=== PATIENT | female | born 1990 | race Caucasian/White ===

== ENCOUNTER 2016-12-13 05:06 | Emergency (ER) | payer SELFPAY ==
[2016-12-13] MEDS ORDERED: NORMAL SALINE 1000 ML 1,000 ML IV ONE (06:03)
[2016-12-13 06:10] LABS: ABSOLUTE BASOPHILS # (AUTO) 0.1 10^3/uL (0.0-0.2); ABSOLUTE EOSINOPHILS # (AUTO) 0.1 10^3/uL (0.0-0.6); ABSOLUTE LYMPHOCYTES (AUTO) 2.9 10^3/uL (0.5-4.7); ABSOLUTE MONOCYTES (AUTO) 0.8 10^3/uL (0.1-1.4); ABSOLUTE NEUT (AUTO) 6.5 10^3/uL (1.7-8.2); BASOPHILS % (AUTO) 0.5 % (0-2); EOSINOPHILS % (AUTO) 0.8 % (0-6); HEMATOCRIT 44.5 % (36.0-47.0); HEMOGLOBIN 15.2 g/dL (12.0-15.5); HGB HCT DIFFERENCE 1.1; LYMPHOCYTES % (AUTO) 28.2 % (13-45); MEAN CORPUSCULAR HEMOGLOBIN 31.1 pg (27.0-33.4); MEAN CORPUSCULAR HGB CONC 34.1 g/dL (32.0-36.0); MEAN CORPUSCULAR VOLUME 91 fl (80-97); MONOCYTES % (AUTO) 7.5 % (3-13); RED BLOOD COUNT 4.88 10^6/uL (3.72-5.28); WHITE BLOOD COUNT 10.4 10^3/uL (4.0-10.5)
[2016-12-13] MEDS ORDERED: LORAZEPAM 1 MG TABLET PO ONE (06:22)
[2016-12-13 06:24] LABS: ALANINE AMINOTRANSFERASE 34 U/L (9-52); ALBUMIN 4.7 g/dL (3.5-5.0); ALCOHOL < 10 mg/dL (NONE DETECTED); ALKALINE PHOSPHATASE 87 U/L (38-126); ANION GAP 13 (5-19); ASPARTATE AMINO TRANSFERASE 43 U/L (14-36); BILIRUBIN,DIRECT 0.3 mg/dL (0.0-0.4); BILIRUBIN,TOTAL 1.2 mg/dL (0.2-1.3); BLOOD UREA NITROGEN 16 mg/dL (7-20); CALCIUM 9.8 mg/dL (8.4-10.2); CARBON DIOXIDE 22 mmol/L (22-30); CHLORIDE 103 mmol/L (98-107); GLUCOSE 99 mg/dL (75-110); POTASSIUM 4.1 mmol/L (3.6-5.0); SODIUM 138.3 mmol/L (137-145)
[2016-12-13 07:05] LABS: AMORPHOUS SEDIMENT,URINE TRACE /HPF; APPEARANCE,URINE SLIGHTLY-CLOUDY; BILIRUBIN,URINE NEGATIVE (NEGATIVE); GLUCOSE, URINE NEGATIVE (NEGATIVE); KETONES,URINE 20 mg/dL (NEGATIVE); LEUKOCYTE ESTERASE,URINE TRACE (NEGATIVE); NITRITE,URINE NEGATIVE (NEGATIVE); PROTEIN,URINE 30 mg/dL (NEGATIVE); URINE SPECIFIC GRAVITY 1.031
--- NOTE | 2016-12-13 07:44 | ER Document Report ---
ED General - General Chief Complaint: Alcohol Withdrawl Stated Complaint: POSSIBLE ALCOHOL WITHDRAWAL Time Seen by Provider: 12/13/16 06:01 TRAVEL OUTSIDE OF THE [place] IN LAST 30 DAYS: No - HPI Patient complains to provider of: Alcohol withdrawals Notes: Patient coming in for evaluation of possible alcohol withdrawals. Patient states she drinks very heavily 1 pint of vodka a day last drink was 6 hours ago patient patient may be going through withdrawals. Patient states she has a history of going through withdrawals. Denies other illicit drugs. Patient states she does take benzos occasionally whenever they are available. Patient states that she did try to call local mental health provider rha states that she was supposed to go back this morning at 6:00 however could not make it due to her symptoms. Denies being . Patient denies any fevers chills nausea vomiting diarrhea - Related Data Allergies/Adverse Reactions: cefaclor [From Ceclor] Allergy (Verified 12/13/16 06:51) naloxone Allergy (Verified 12/13/16 06:51) peanut Allergy (Verified 12/13/16 06:51) red dye [Red Dye] Allergy (Verified 12/13/16 06:51) Past Medical History - Social History Smoking Status: Current Every Day Smoker Frequency of alcohol use: Heavy Drug Abuse: Other Family History: Reviewed & Not Pertinent Patient has suicidal ideation: No Patient has homicidal ideation: No Renal/ Medical History: Denies: Hx Peritoneal Dialysis Psychiatric Medical History: Reports: Hx Attention Deficit Hyperactivity Disorder Past Surgical History: Reports: Hx Adenoidectomy, Hx Appendectomy, Hx Tonsillectomy - & adenoids - Immunizations Immunizations up to date: Yes Hx Diphtheria, Pertussis, Tetanus Vaccination: Yes - given today Review of Systems - Review of Systems Constitutional: Other - Alcohol withdrawals EENT: No symptoms reported Cardiovascular: No symptoms reported Respiratory: No symptoms reported Gastrointestinal: No symptoms reported Genitourinary: No symptoms reported Female Genitourinary: No symptoms reported Musculoskeletal: No symptoms reported Skin: No symptoms reported Hematologic/Lymphatic: No symptoms reported Neurological/Psychological: No symptoms reported Physical Exam - Vital signs Vitals: Temp Pulse Resp BP Pulse Ox 98.6 F 106 H 26 H 123/83 99 12/13/16 05:11 12/13/16 05:11 12/13/16 05:11 12/13/16 05:11 12/13/16 05:11 Interpretation: Normal - General General appearance: Appears well, Alert - HEENT Head: Normocephalic, Atraumatic Eyes: Normal Pupils: PERRL - Respiratory Respiratory status: No respiratory distress Chest status: Nontender Breath sounds: Normal Chest palpation: Normal - Cardiovascular Rhythm: Regular Heart sounds: Normal auscultation Murmur: No - Abdominal Inspection: Normal Distension: No distension Bowel sounds: Normal Tenderness: Nontender Organomegaly: No organomegaly - Back Back: Normal, Nontender - Extremities General upper extremity: Normal inspection, Nontender, Normal color, Normal ROM , Normal temperature General lower extremity: Normal inspection, Nontender, Normal color, Normal ROM , Normal temperature, Normal weight bearing. No: Samuel's sign - Neurological Neuro grossly intact: Yes Cognition: Normal Orientation: AAOx4 [place] Coma Scale Eye Opening: Spontaneous [place] Coma Scale Verbal: Oriented [place] Coma Scale Motor: Obeys Commands [place] Coma Scale Total: 15 Speech: Normal Motor strength normal: LUE, RUE, LLE, RLE Sensory: Normal - Psychological Associated symptoms: Normal affect, Normal mood - Skin Skin Temperature: Warm Skin Moisture: Dry Skin Color: Normal Course - Re-evaluation Re-evalutation: 12/13/16 07:41 Patient was to be resting, comfortable upon initial evaluation. No signs of overt alcohol withdrawals. Patient was given 1 dose of oral Ativan. Vital signs have been stable since that time. Plan more likely will discharge patient to [facility] and will give a prescription for day supply of Librium - Vital Signs Vital signs: Temp Pulse Resp BP Pulse Ox 98.6 F 106 H 21 H 96/61 L 98 12/13/16 05:11 12/13/16 05:11 12/13/16 08:01 12/13/16 08:00 12/13/16 08:01 - Laboratory Result Diagrams: 12/13/16 05:57 12/13/16 05:57 Laboratory results interpreted by me: 12/13/16 12/13/16 05:57 06:37 AST 43 H Urine Protein 30 H Urine Ketones 20 H Urine Urobilinogen 2.0 H Ur Leukocyte Esterase TRACE H Salicylates < 1.0 L Discharge - Discharge Clinical Impression: Alcohol withdrawal Qualifiers: Complication of substance-induced condition: uncomplicated Qualified Code(s): F10.230 - Alcohol dependence with withdrawal, uncomplicated Instructions: Acute Alcohol Intoxication ([facility]), Alcohol Withdrawl ([facility]) Additional Instructions: Medication as prescribed. Return to the ER symptoms worsen. Please go directly to [facility] for further evaluation Prescriptions: Chlordiazepoxide HCl [Librium 25 mg Capsule] 1 cap PO QID #4 capsule
[2016-12-13 07:58] LABS: URINE BARBITURATES SCREEN NEGATIVE; URINE METHADONE SCREEN NEGATIVE; URINE OPIATES LOW NEGATIVE; URINE PHENCYCLIDINE SCREEN NEGATIVE
--- NOTE | 2016-12-13 08:18 | EKG REPORT ---
SEVERITY:- NORMAL ECG - SINUS RHYTHM : Confirmed by: Jw Wilson MD 13-Dec-2016 08:17:47
[2016-12-13 08:35] VITALS: BP 121/90
== END 2016-12-13 08:35 | disposition home or self-care (01) ==
LOC: ER 05:06
DX: F10.230 Alcohol dependence with withdrawal, uncomplicated (principal); Z79.899 Other long term (current) drug therapy; F17.200 Nicotine dependence, unspecified, uncomplicated
CPT/HCPCS: 93005; 99285; 96360; 36415; 80307 ×4; 85025; 81025; 80053; 81001; 93010; J7030

== ENCOUNTER 2017-03-19 14:50 | Emergency (ER) | payer SELFPAY ==
[2017-03-19] MEDS ORDERED: NORMAL SALINE 1000 ML 1,000 ML IV ONE ×2 (15:01→17:22)
[2017-03-19] MEDS ORDERED: ONDANSETRON HCL INJ/PF 4 MG/2 ML SDV IV ONE (15:01)
[2017-03-19] MEDS ORDERED: MORPHINE SULFATE 10 MG/ML INJ IV ONE (15:01)
--- NOTE | 2017-03-19 15:02 | ER Document Report ---
ED Medical Screen (RME) - General Chief Complaint: Flank Pain Stated Complaint: FLANK PAIN Time Seen by Provider: 03/19/17 15:00 Notes: Patient states she has had 4 days of bilateral flank pain with dysuria and hematuria. She states her natural cycles are commonly irregular so she is unsure if she is . She also states she has been vomiting. TRAVEL OUTSIDE OF THE [place] IN LAST 30 DAYS: No - Related Data Allergies/Adverse Reactions: cefaclor [From Ceclor] Allergy (Verified 03/19/17 14:54) naloxone Allergy (Verified 03/19/17 14:54) peanut Allergy (Verified 03/19/17 14:54) red dye [Red Dye] Allergy (Verified 03/19/17 14:54) Past Medical History - Social History Frequency of alcohol use: None Drug Abuse: None Renal/ Medical History: Denies: Hx Peritoneal Dialysis Psychiatric Medical History: Reports: Hx Attention Deficit Hyperactivity Disorder Past Surgical History: Reports: Hx Adenoidectomy, Hx Appendectomy, Hx Oral Surgery - [place], Hx Tonsillectomy - & adenoids - Immunizations Immunizations up to date: Yes Hx Diphtheria, Pertussis, Tetanus Vaccination: Yes - given today Physical Exam - Vital signs Vitals: Temp Pulse BP Pulse Ox 98.7 F 120 H 104/74 99 03/19/17 14:55 03/19/17 14:55 03/19/17 14:55 03/19/17 14:55 Course - Vital Signs Vital signs: Temp Pulse Resp BP Pulse Ox 98.7 F 120 H 104/74 99 03/19/17 14:55 03/19/17 14:55 03/19/17 14:55 03/19/17 14:55
--- NOTE | 2017-03-19 16:28 | ER Document Report ---
ED GI/ - General Mode of Arrival: Ambulatory Information source: Patient TRAVEL OUTSIDE OF THE [place] IN LAST 30 DAYS: No - HPI Patient complains to provider of: Dysuria, Flank pain, Pelvic pain, Vomiting. No: , Vaginal discharge Onset: Other - 4 days Timing/Duration: Persistent Quality of pain: Sharp Pain Level: 5 Context: denies: Location: Left flank, Right flank, Pelvis Vaginal bleeding (Compared to normal period): None Sexual history: Active Associated symptoms: Dysuria, Fever, Nausea, Vomiting. denies: Diarrhea Exacerbated by: Denies Relieved by: Denies Similar symptoms previously: Yes Recently seen / treated by doctor: No <ADAM HERNANDEZ - Last Filed: 03/19/17 19:08> <QUIRINO CARTAGENA - Last Filed: 03/19/17 20:23> <FLORENCIO CASTORENA - Last Filed: 03/19/17 22:57> - General Chief Complaint: Flank Pain Stated Complaint: FLANK PAIN Time Seen by Provider: 03/19/17 15:00 Notes: Patient presents with a four-day history of bilateral flank pain and lower pelvic pain. Patient complains of nausea and vomiting with last emesis yesterday. Patient denies any diarrhea. Patient does report subjective fever and chills at home. Patient complains of dysuria. Patient is concerned that she may have a UTI. 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 Denies: Hx Peritoneal Dialysis Psychiatric Medical History: Reports: Hx Attention Deficit Hyperactivity Disorder Past Surgical History: Reports: Hx Adenoidectomy, Hx Appendectomy, Hx Oral Surgery - [place], Hx Tonsillectomy - & adenoids - Immunizations Immunizations up to date: Yes Hx Diphtheria, Pertussis, Tetanus Vaccination: Yes - given today <ADAM HERNANDEZ - Last Filed: 03/19/17 19:08> Review of Systems - Review of Systems Constitutional: Chills, Fever EENT: No symptoms reported Cardiovascular: No symptoms reported. denies: Chest pain Respiratory: No symptoms reported. denies: Cough, Short of breath Gastrointestinal: Abdominal pain, Nausea, Vomiting. denies: Diarrhea Genitourinary: Dysuria, Flank pain Female Genitourinary: No symptoms reported. denies: , Vaginal discharge Musculoskeletal: Back pain Skin: No symptoms reported Hematologic/Lymphatic: No symptoms reported Neurological/Psychological: No symptoms reported <ADAM HERNANDEZ - Last Filed: 03/19/17 19:08> Physical Exam - General General appearance: Appears well, Alert In distress: None - HEENT Head: Normocephalic Eyes: Normal Conjunctiva: Normal Mouth/Lips: Normal Mucous membranes: Normal Pharynx: Normal Neck: Normal, Supple. No: Lymphadenopathy - Respiratory Respiratory status: No respiratory distress Chest status: Nontender Breath sounds: Normal. No: Rales, Rhonchi, Stridor, Wheezing Chest palpation: Normal - Cardiovascular Rhythm: Tachycardia Heart sounds: S1 appreciated, S2 appreciated Murmur: No - Abdominal Inspection: Normal Distension: No distension Bowel sounds: Normal Tenderness: Tender - Suprapubic Organomegaly: No organomegaly - Back Back: CVA tenderness - Bilateral - Extremities General upper extremity: Normal ROM, Other - Patient with multiple IV track gonzalez to bilateral upper extremities General lower extremity: Normal inspection, Normal ROM - Neurological Neuro grossly intact: Yes Cognition: Normal [place] Coma Scale Eye Opening: Spontaneous [place] Coma Scale Verbal: Oriented [place] Coma Scale Motor: Obeys Commands [place] Coma Scale Total: 15 - Psychological Associated symptoms: Normal affect, Normal mood - Skin Skin Temperature: Warm Skin Moisture: Dry Skin Color: Other - Track gonzalez to bilateral upper extremities with surrounding ecchymosis <ADAM HERNANDEZ - Last Filed: 03/19/17 19:08> - Vital signs Vitals: Temp Pulse BP Pulse Ox 98.7 F 120 H 104/74 99 03/19/17 14:55 03/19/17 14:55 03/19/17 14:55 03/19/17 14:55 Course - Laboratory Result Diagrams: 03/19/17 16:05 03/19/17 17:45 <ADAM HERNANDEZ - Last Filed: 03/19/17 19:08> - Laboratory Result Diagrams: 03/19/17 16:05 03/19/17 17:45 <QUIRINO CARTAGENA - Last Filed: 03/19/17 20:23> - Laboratory Result Diagrams: 03/19/17 16:05 03/19/17 17:45 <FLORENCIO CASTORENA - Last Filed: 03/19/17 22:57> - Re-evaluation Re-evalutation: 03/19/17 17:24 Patient is refusing any additional IV attempts. Discussed concerns about sepsis with patient, patient is agreeable to have a repeat blood draw attempt per WOODY Bhardwaj only. 03/19/17 18:38 Patient's heart rate continues tachycardic with blood pressure 100/68. Patient' s temperature 100.9. Patient complains of continued pelvic pain and bilateral flank pain. 03/19/17 18:[address] Castorena, reviewed patient's presentation, exam finding diagnostic test results. Recommends obtaining CT scan with IV contrast and likely admission 03/19/17 19:08 Attempted bedside report and handoff, patient is currently in CT scan. Report given to Quirino HO (ADAM HERNANDEZ) 03/19/17 20:37 I examined the patient at 8:30 PM. She is alert and communicative. She sits up in bed and appears to be in no acute distress. She has evidence of bilateral pyelonephritis on CT with a urinary tract infection and an elevation in her white blood cell count. We have advised the patient that she should be admitted to the hospital and have spoke with the hospitalist service about this. The patient is reluctant to stay. She reports she has a number of things that she needs to take care of and that she has had a kidney infection before and she does not understand why this would be so significant. We have outlined how her blood pressure is low, her heart rate is up, and she has an infection on both sides. We have outlined the risks and benefits of leaving the hospital, including worsening sickness, sepsis, and even . We have offered support to the patient to stay but also let her know that if she departs , will we will provide her with a prescription and welcome her back if she feels worse or has a change of heart. She will speak with her mother who is a nurse to make her decision. Meanwhile, will continue with additional IV fluids and Levaquin. 03/19/17 22:54 The patient has received additional IV fluids. The Levaquin is fully infused. At this time, her heart rate is 90. She is ambulatory and feels better. Her blood pressure has improved. She is insisting on discharge. I have encouraged the patient to stay for admission. I think admission would been reasonable given bilateral pyelonephritis, white blood cell count of 15,000 , and my concerns for IV drug abuse, but it is not unreasonable to be discharged home on antibiotics. We will discharge her with strong precautions to return. The patient understands the options she has. She is alert and cognitive and is cooperative. She is appreciative of the care she is received. (FLORENCIO CASTORENA) - Vital Signs Vital signs: Temp Pulse Resp BP Pulse Ox 98.1 F 94 30 H 98/63 L 100 03/19/17 20:06 03/19/17 16:49 03/19/17 21:23 03/19/17 21:23 03/19/17 21:01 - Laboratory Laboratory results interpreted by me: 03/19/17 03/19/17 03/19/17 15:20 16:05 17:45 WBC 15.2 H Seg Neutrophils % 82.2 H Lymphocytes % 8.3 L Absolute Neutrophils 12.5 H Sodium 131.8 L Chloride 95 L Total Protein 6.2 L Urine Protein 100 H Urine Ketones 20 H Urine Blood MODERATE H Ur Leukocyte Esterase LARGE H Labs- Entire Visit 03/19/17 03/19/17 03/19/17 15:20 15:20 16:05 WBC 15.2 H RBC 4.22 Hgb 13.2 Hct 37.1 MCV 88 MCH 31.2 MCHC 35.5 RDW 12.6 Plt Count 193 Seg Neutrophils % 82.2 H Lymphocytes % 8.3 L Monocytes % 9.0 Eosinophils % 0.1 Basophils % 0.4 Absolute Neutrophils 12.5 H Absolute Lymphocytes 1.3 Absolute Monocytes 1.4 Absolute Eosinophils 0.0 Absolute Basophils 0.1 PT INR VBG pH VBG pCO2 VBG HCO3 VBG Base Excess Sodium Potassium Chloride Carbon Dioxide Anion Gap BUN Creatinine Est GFR ( Amer) Est GFR (Non-Af Amer) Glucose Lactic Acid Calcium Total Bilirubin Direct Bilirubin Indirect Bilirubin Neonat Total Bilirubin AST ALT Alkaline Phosphatase Total Protein Albumin Lipase Urine Color YELLOW Urine Appearance CLOUDY Urine pH 5.0 Ur Specific [place] 1.013 Urine Protein 100 H Urine Glucose (UA) NEGATIVE Urine Ketones 20 H Urine Blood MODERATE H Urine Nitrite NEGATIVE Urine Bilirubin NEGATIVE Urine Urobilinogen NEGATIVE Ur Leukocyte Esterase LARGE H Urine WBC (Auto) 161 Urine RBC (Auto) 10 Urine Bacteria (Auto) 2+ Urine WBC Clumps MOD Squamous Epi Cells Auto 26 U Non-Squamous Epis Auto 3 Urine Mucus (Auto) OCC Urine Ascorbic Acid NEGATIVE Urine HCG, Qual NEGATIVE Urine Opiates Screen NEGATIVE Urine Methadone Screen NEGATIVE Ur Barbiturates Screen NEGATIVE Ur Phencyclidine Scrn NEGATIVE Ur Amphetamines Screen U Benzodiazepines Scrn UNCONFIRMED POSITIVE Urine Cocaine Screen NEGATIVE U Marijuana (THC) Screen UNCONFIRMED POSITIVE 03/19/17 03/19/17 03/19/17 16:05 16:05 17:45 WBC RBC Hgb Hct MCV MCH MCHC RDW Plt Count Seg Neutrophils % Lymphocytes % Monocytes % Eosinophils % Basophils % Absolute Neutrophils Absolute Lymphocytes Absolute Monocytes Absolute Eosinophils Absolute Basophils PT 15.1 INR 1.11 VBG pH VBG pCO2 VBG HCO3 VBG Base Excess Sodium Cancelled 131.8 L Potassium Cancelled 3.7 Chloride Cancelled 95 L Carbon Dioxide Cancelled 23 Anion Gap Cancelled 14 BUN Cancelled 8 Creatinine Cancelled 0.74 Est GFR ( Amer) Cancelled > 60 Est GFR (Non-Af Amer) Cancelled > 60 Glucose Cancelled 90 Lactic Acid Calcium Cancelled 8.4 Total Bilirubin Cancelled 0.7 Direct Bilirubin Cancelled 0.4 Indirect Bilirubin Cancelled Not Reportable Neonat Total Bilirubin Cancelled Not Reportable AST Cancelled 21 ALT Cancelled 24 Alkaline Phosphatase Cancelled 80 Total Protein Cancelled 6.2 L Albumin Cancelled 3.5 Lipase Cancelled 26.0 Urine Color Urine Appearance Urine pH Ur Specific [place] Urine Protein Urine Glucose (UA) Urine Ketones Urine Blood Urine Nitrite Urine Bilirubin Urine Urobilinogen Ur Leukocyte Esterase Urine WBC (Auto) Urine RBC (Auto) Urine Bacteria (Auto) Urine WBC Clumps Squamous Epi Cells Auto U Non-Squamous Epis Auto Urine Mucus (Auto) Urine Ascorbic Acid Urine HCG, Qual Urine Opiates Screen Urine Methadone Screen Ur Barbiturates Screen Ur Phencyclidine Scrn Ur Amphetamines Screen U Benzodiazepines Scrn Urine Cocaine Screen U Marijuana (THC) Screen 03/19/17 03/19/17 17:45 17:45 WBC RBC Hgb Hct MCV MCH MCHC RDW Plt Count Seg Neutrophils % Lymphocytes % Monocytes % Eosinophils % Basophils % Absolute Neutrophils Absolute Lymphocytes Absolute Monocytes Absolute Eosinophils Absolute Basophils PT INR VBG pH 7.36 VBG pCO2 46.6 VBG HCO3 26.0 VBG Base Excess 0.1 Sodium Potassium Chloride Carbon Dioxide Anion Gap BUN Creatinine Est GFR ( Amer) Est GFR (Non-Af Amer) Glucose Lactic Acid 0.8 Calcium Total Bilirubin Direct Bilirubin Indirect Bilirubin Neonat Total Bilirubin AST ALT Alkaline Phosphatase Total Protein Albumin Lipase Urine Color Urine Appearance Urine pH Ur Specific [place] Urine Protein Urine Glucose (UA) Urine Ketones Urine Blood Urine Nitrite Urine Bilirubin Urine Urobilinogen Ur Leukocyte Esterase Urine WBC (Auto) Urine RBC (Auto) Urine Bacteria (Auto) Urine WBC Clumps Squamous Epi Cells Auto U Non-Squamous Epis Auto Urine Mucus (Auto) Urine Ascorbic Acid Urine HCG, Qual Urine Opiates Screen Urine Methadone Screen Ur Barbiturates Screen Ur Phencyclidine Scrn Ur Amphetamines Screen U Benzodiazepines Scrn Urine Cocaine Screen U Marijuana (THC) Screen (ADAM HERNANDEZ) Discharge <ADAM HERNANDEZ - Last Filed: 03/19/17 19:08> <QUIRINO CARTAGENA - Last Filed: 03/19/17 20:23> <FLORENCIO CASTORENA - Last Filed: 03/19/17 22:57> - Discharge Clinical Impression: Pyelonephritis UTI (urinary tract infection) Qualifiers: Urinary tract infection type: site unspecified Hematuria presence: without hematuria Qualified Code(s): N39.0 - Urinary tract infection, site not specified Hypotension Qualifiers: Hypotension type: unspecified hypotension type Qualified Code(s): I95.9 - Hypotension, unspecified Disposition: HOME, SELF-CARE Instructions: Levofloxacin, Pyelonephritis ([facility]) Additional Instructions: We suggested you should stay in the hospital for further care and monitoring. You prefer to be discharged from the hospital. Your blood pressure and your heart rate improved while you were in the emergency department. You were given Levaquin. Continue Levaquin by mouth. Follow-up with your regular doctor for with Dr. Suarez. Return to the emergency department at any time if you have further weakness, abdominal pain, higher temperatures, or other urgent concerns. Prescriptions: Levofloxacin [Levaquin 750 mg Tablet] 750 mg PO DAILY #10 tablet
[2017-03-19 16:30] LABS: ABSOLUTE BASOPHILS # (AUTO) 0.1 10^3/uL (0.0-0.2); ABSOLUTE LYMPHOCYTES (AUTO) 1.3 10^3/uL (0.5-4.7); ABSOLUTE MONOCYTES (AUTO) 1.4 10^3/uL (0.1-1.4); ABSOLUTE NEUT (AUTO) 12.5 10^3/uL (1.7-8.2); BASOPHILS % (AUTO) 0.4 % (0-2); EOSINOPHILS % (AUTO) 0.1 % (0-6); HEMATOCRIT 37.1 % (36.0-47.0); HEMOGLOBIN 13.2 g/dL (12.0-15.5); HGB HCT DIFFERENCE 2.5; LYMPHOCYTES % (AUTO) 8.3 % (13-45); MEAN CORPUSCULAR HEMOGLOBIN 31.2 pg (27.0-33.4); MEAN CORPUSCULAR HGB CONC 35.5 g/dL (32.0-36.0); MEAN CORPUSCULAR VOLUME 88 fl (80-97); RED BLOOD COUNT 4.22 10^6/uL (3.72-5.28); RED CELL DISTRIBUTION WIDTH 12.6 % (11.5-14.0); SEGMENTED NEUTROPHILS % (AUTO) 82.2 % (42-78); WHITE BLOOD COUNT 15.2 10^3/uL (4.0-10.5)
[2017-03-19 16:37] LABS: APPEARANCE,URINE CLOUDY; BILIRUBIN,URINE NEGATIVE (NEGATIVE); GLUCOSE, URINE NEGATIVE (NEGATIVE); KETONES,URINE 20 mg/dL (NEGATIVE); LEUKOCYTE ESTERASE,URINE LARGE (NEGATIVE); NITRITE,URINE NEGATIVE (NEGATIVE); PROTEIN,URINE 100 mg/dL (NEGATIVE); URINE SPECIFIC GRAVITY 1.013; UROBILINOGEN,URINE NEGATIVE mg/dL (<2.0)
[2017-03-19 16:51] LABS: URINE BARBITURATES SCREEN NEGATIVE; URINE METHADONE SCREEN NEGATIVE; URINE OPIATES LOW NEGATIVE; URINE PHENCYCLIDINE SCREEN NEGATIVE
[2017-03-19] MEDS ORDERED: LEVOFLOXACIN 750 MG/D5W RTU 750 MG/150 ML RTUPB IV ONE (17:22)
[2017-03-19 17:37] LABS: PROTHROMBIN TIME 15.1 SEC (11.4-15.4)
[2017-03-19 18:09] LABS: VENOUS BLOOD BASE EXCESS 0.1 mmol/L; VENOUS BLOOD PCO2 46.6 mmHg (35-63); VENOUS BLOOD PH 7.36 (7.30-7.42)
--- NOTE | 2017-03-19 18:20 | EKG REPORT ---
SEVERITY:- OTHERWISE NORMAL ECG - SINUS TACHYCARDIA BORDERLINE RIGHT AXIS DEVIATION : Confirmed by: Jessy Vieira MD 19-Mar-2017 18:19:24
[2017-03-19 18:24] LABS: ALANINE AMINOTRANSFERASE 24 U/L (9-52); ALBUMIN 3.5 g/dL (3.5-5.0); ALKALINE PHOSPHATASE 80 U/L (38-126); ANION GAP 14 (5-19); ASPARTATE AMINO TRANSFERASE 21 U/L (14-36); BILIRUBIN,DIRECT 0.4 mg/dL (0.0-0.4); BILIRUBIN,TOTAL 0.7 mg/dL (0.2-1.3); BLOOD UREA NITROGEN 8 mg/dL (7-20); CALCIUM 8.4 mg/dL (8.4-10.2); CARBON DIOXIDE 23 mmol/L (22-30); CHLORIDE 95 mmol/L (98-107); CREATININE RESULT 0.74 mg/dL (0.52-1.25); GLUCOSE 90 mg/dL (75-110); POTASSIUM 3.7 mmol/L (3.6-5.0); SODIUM 131.8 mmol/L (137-145); TOTAL PROTEIN 6.2 g/dL (6.3-8.2)
[2017-03-19] MEDS ORDERED: KETOROLAC TROMETHAMINE INJ/PF 30 MG/1 ML SDV IV ONE (18:38)
[2017-03-19] MEDS ORDERED: ACETAMINOPHEN 325 MG TABLET PO ONE (18:38)
[2017-03-19] MEDS ORDERED: NORMAL SALINE 1000 ML 1,000 ML IV PRN (18:44)
--- NOTE | 2017-03-19 19:59 | RADIOLOGY REPORT (SQ) ---
EXAM DESCRIPTION: CT ABD/PELVIS WITH IV ONLY COMPLETED DATE/TIME: 03/19/2017 7:19 pm REASON FOR STUDY: pelvic, bilat flank pain, fever, hx IVDA COMPARISON: None. TECHNIQUE: CT scan of the abdomen and pelvis performed using helical scanning technique with dynamic intravenous contrast injection. No oral contrast. Images reviewed with lung, soft tissue, and bone windows. Reconstructed coronal and sagittal MPR images reviewed. Delayed images for evaluation of the urinary system also acquired. All images stored on PACS. All CT scanners at this facility use dose modulation, iterative reconstruction, and/or weight based d osing when appropriate to reduce radiation dose to as low as reasonably achievable (ALARA). [facility]: Dose Right [facility]: CareDose [facility]: Dose Right [facility]: Teradose 4D [facility]: Khush CONTRAST TYPE AND DOSE: contrast/concentration: Isovue 370.00 mg/ml; Total Contrast Delivered: 59.0 ml; Total Saline Delivered: 40.0 ml RENAL FUNCTION: Creatinine 0.74 RADIATION DOSE: Up-to-date CT equipment and radiation dose reduction techniques were employed. CTDIv ol: 5.0 - 5.8 mGy. DLP: 565 mGy-cm.. LIMITATIONS: None. FINDINGS: LOWER CHEST: No significant findings. No nodules or infiltrates. LIVER: Normal size. No masses. No dilated ducts. SPLEEN: Normal size. No focal lesions. PANCREAS: No masses. No significant calcifications. No adjacent inflammation or peripancreatic fluid collections. Pancreatic duct not dilated. GALLBLADDER: No identified stones by CT criteria. No inflammatory changes to suggest cholecystitis. ADRENAL GLANDS: No significant masses or asymmetry. RIGHT KIDNEY AND URETER: No solid masses. There is heterogeneous contrast opacification of the right kidney which is a nonspecific finding but can be seen in patients with pyelonephritis. Clinical cor relation is recommended No significant calcifications. No hydronephrosis or hydroureter. LEFT KIDNEY AND URETER: No solid masses. There is heterogeneous contrast opacification of the left k idney which is a nonspecific finding but can be seen in patients with pyelonephritis. Clinical corre lation is recommended. No significant calcifications. No hydronephrosis or hydroureter. AORTA AND VESSELS: No aneurysm. No dissection. Renal arteries, SMA, celiac without stenosis. RETROPERITONEUM: No retroperitoneal adenopathy, hemorrhage or masses. BOWEL AND PERITONEAL CAVITY: No masses or inflammatory changes. No free fluid or peritoneal masses. APPENDIX: Status post appendectomy. PELVIS: Cystic appearing changes are identified in both adnexal regions presumably ovarian in etiolog y. If further workup is deemed clinically warranted I would recommend a pelvic ultrasound. No free fluid. Normal bladder. ABDOMINAL WALL: No masses. No hernias. BONES: No significant or acute findings. OTHER: No other significant finding. IMPRESSION: There is heterogeneous contrast opacification of both kidneys as noted above which is a nonspecific finding but can be seen in patients with pyelonephritis. Clinical correlation is recomme nded. Other findings as noted above TECHNICAL DOCUMENTATION: JOB ID: [id number] Quality ID # [id number]: Final reports with documentation of one or more dose reduction techniques (e.g., Au tomated exposure control, adjustment of the mA and/or kV according to patient size, use of iterative reconstruction technique) 2010 [employer]- All Rights Reserved
[2017-03-19 23:19] VITALS: BP 92/65
== END 2017-03-19 23:16 | disposition home or self-care (01) ==
LOC: ER 14:50
DX: N12 Tubulo-interstitial nephritis, not specified as acute or chronic (principal); I95.9 Hypotension, unspecified; R00.0 Tachycardia, unspecified; R11.2 Nausea with vomiting, unspecified; R50.9 Fever, unspecified; Z88.1 Allergy status to other antibiotic agents; Z88.8 Allergy status to other drugs, medicaments and biological substances; Z91.010 Allergy to peanuts; Z91.048 Other nonmedicinal substance allergy status; F17.200 Nicotine dependence, unspecified, uncomplicated
CPT/HCPCS: 93005; 99284; 96361; 96375; 96365; 96366; 36415; 87040; 87086; 83690; 85025; 85610; 81025; 87088; 80053; 81001; 87186; 80307; 82803; 83605; 74177; 93010; J1885; J2270; J2405; J7030; J1956

== ENCOUNTER 2017-03-20 09:19 | Inpatient (IN) | payer SELFPAY ==
[2017-03-20] MEDS ORDERED: NORMAL SALINE 1000 ML 1,000 ML IV ONE ×2 (09:39→11:02)
[2017-03-20] MEDS ORDERED: ACETAMINOPHEN 325 MG TABLET PO ONE (09:39)
--- NOTE | 2017-03-20 09:41 | ER Document Report ---
ED Medical Screen (RME) - General Stated Complaint: FLANK PAIN Time Seen by Provider: 03/20/17 09:38 Notes: Patient was seen here yesterday and diagnosed with bilateral pyelonephritis. Patient returns today with fever and worse pain. TRAVEL OUTSIDE OF THE [place] IN LAST 30 DAYS: No - Related Data Allergies/Adverse Reactions: cefaclor [From Ceclor] Allergy (Verified 03/20/17 09:38) naloxone Allergy (Verified 03/20/17 09:38) peanut Allergy (Verified 03/20/17 09:38) red dye [Red Dye] Allergy (Verified 03/20/17 09:38) Past Medical History Renal/ Medical History: Denies: Hx Peritoneal Dialysis Psychiatric Medical History: Reports: Hx Attention Deficit Hyperactivity Disorder Past Surgical History: Reports: Hx Adenoidectomy, Hx Appendectomy, Hx Oral Surgery - [place] Teeth, Hx Tonsillectomy - & adenoids - Immunizations Immunizations up to date: Yes Hx Diphtheria, Pertussis, Tetanus Vaccination: Yes - given today
--- NOTE | 2017-03-20 10:16 | ER Document Report ---
ED GI/ - General Mode of Arrival: Ambulatory Information source: Patient, [facility] Records TRAVEL OUTSIDE OF THE [place] IN LAST 30 DAYS: No <TOM TALLEY - Last Filed: 03/20/17 10:35> <NALLELY OLIVEIRA - Last Filed: 03/20/17 12:23> - General Chief Complaint: Flank Pain Stated Complaint: FLANK PAIN Time Seen by Provider: 03/20/17 09:38 Notes: Patient is a 26 year old female that presents to the emergency department today with complaints of increasing flank pain. Patient was diagnosed with bilateral pyelonephritis yesterday. Yesterday the patient stated she had a 4 day history of bilateral flank pain with associated nausea and vomiting with suprapubic abdominal pain. Patient states she did not get her prescription for her antibiotics filled yesterday because she could not afford it. Patient states this morning when she woke up she has had increasing pain and fevers. Patient states "she has given to a child twice and this is worse than that". 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 (TOM TALLEY) - Related Data Allergies/Adverse Reactions: cefaclor [From Ceclor] Allergy (Verified 03/20/17 09:38) naloxone Allergy (Verified 03/20/17 09:38) peanut Allergy (Verified 03/20/17 09:38) red dye [Red Dye] Allergy (Verified 03/20/17 09:38) Past Medical History - General Information source: Patient, [facility] Records - Social History Smoking Status: Current Every Day Smoker Cigarette use (# per day): Yes Drug Abuse: Methamphetamine - hx of injecting, "stopped a week ago" Lives with: Family Family History: Reviewed & Not Pertinent Patient has suicidal ideation: No Patient has homicidal ideation: No Psychiatric Medical History: Reports: Hx Attention Deficit Hyperactivity Disorder Past Surgical History: Reports: Hx Adenoidectomy, Hx Appendectomy, Hx Oral Surgery - [place] Teeth, Hx Tonsillectomy - & adenoids - Immunizations Immunizations up to date: Yes Hx Diphtheria, Pertussis, Tetanus Vaccination: Yes - given today <TOM TALLEY - Last Filed: 03/20/17 10:35> Review of Systems - Review of Systems Constitutional: See HPI, Fever EENT: No symptoms reported Cardiovascular: No symptoms reported Respiratory: No symptoms reported Gastrointestinal: Nausea, Vomiting Genitourinary: See HPI, Flank pain Female Genitourinary: No symptoms reported Musculoskeletal: No symptoms reported Skin: No symptoms reported Hematologic/Lymphatic: No symptoms reported Neurological/Psychological: No symptoms reported -: Yes All other systems reviewed and negative <TOM TALLEY - Last Filed: 03/20/17 10:35> Physical Exam <TOM TALLEY - Last Filed: 03/20/17 10:35> <NALLELY OLIVEIRA - Last Filed: 03/20/17 12:23> - Vital signs Vitals: Temp Pulse Resp BP Pulse Ox 102.2 F H 136 H 16 113/64 94 03/20/17 09:39 03/20/17 09:39 03/20/17 09:39 03/20/17 09:39 03/20/17 09:39 - Notes Notes: Physical Exam: General: Alert, appears uncomfortable. Tearful. HEENT: Normocephalic. Atraumatic. PERRL. Extraocular movements intact. Oropharynx clear. Neck: Supple. Non-tender. Respiratory: No respiratory distress. Diffuse rhonchi consistent with smoking history. Cardiovascular: Regular rate and rhythm. Abdominal: Mild suprapubic abdominal tenderness. No distension. Normal Bowel Sounds. Back: CVA tenderness to percussion bilaterally. No deformity or step off. Extremities: Moves all four extremities. Upper extremities: See skin. Normal ROM. Lower extremities: Normal inspection. No edema. Normal ROM. Neurological: Normal cognition. AAOx4. Normal speech. Psychological: Tearful. Normal Mood. Skin: Hot to the touch, diaphoretic, multiple healed scars to bilateral upper extremities consistent with IV drug abuse history. (TOM TALLEY) Course - Laboratory Result Diagrams: 03/20/17 10:11 03/20/17 10:11 <TOM TALLEY - Last Filed: 03/20/17 10:35> - Laboratory Result Diagrams: 03/20/17 10:11 03/20/17 10:11 - Consults Dr. Maya Time consulted: 12:20 Consulted provider: will come to ER <NALLELY OLIVEIRA - Last Filed: 03/20/17 12:23> - Re-evaluation Re-evalutation: 03/20/17 11:44 The patient's ANC is down from 12.5 yesterday to 6.1 today. The patient's UA showed 161 WBCs yesterday, it is down to 43 WBCs today. A lactic acid was 0.8 yesterday and is 0.8 today. The patient did have a contrasted CT scan yesterday that suggested pyelonephritis, no abscess or perinephric stranding was seen. Her antibiotic will be changed to Cipro which is much less expensive than the Levaquin that was prescribed yesterday. Culture and sensitivity results should be available sometime tomorrow. 03/20/17 12:17 The patient reports that last night they wanted to put her in the intensive care unit, so she cannot understand why she would be getting discharged now. She is stating that her pain is much worse today than it was yesterday. (NALLELY OLIVEIRA) - Vital Signs Vital signs: Temp Pulse Resp BP Pulse Ox 102.2 F H 136 H 16 113/64 94 03/20/17 09:39 03/20/17 09:39 03/20/17 09:39 03/20/17 09:39 03/20/17 09:39 - Laboratory Laboratory results interpreted by me: 03/20/17 03/20/17 03/20/17 10:11 10:11 10:11 Hct 35.0 L Seg Neutrophils % 78.1 H Lymphocytes % 11.7 L VBG pH 7.46 H VBG pCO2 30.7 L Sodium 134.1 L Carbon Dioxide 21 L Direct Bilirubin 0.5 H Total Protein 6.0 L Albumin 3.4 L Urine Protein Urine Ketones Urine Blood Ur Leukocyte Esterase 03/20/17 11:21 Hct Seg Neutrophils % Lymphocytes % VBG pH VBG pCO2 Sodium Carbon Dioxide Direct Bilirubin Total Protein Albumin Urine Protein 30 H Urine Ketones 20 H Urine Blood SMALL H Ur Leukocyte Esterase SMALL H Discharge <TOM TALLEY - Last Filed: 03/20/17 10:35> - Discharge Admitting Provider: Hospitalist Unit Admitted: Medical Floor <NALLELY OLIVEIRA - Last Filed: 03/20/17 12:23> - Discharge Clinical Impression: Pyelonephritis Fever Qualifiers: Fever type: unspecified Qualified Code(s): R50.9 - Fever, unspecified Condition: Stable Disposition: ADMITTED INPATIENT Scribe Attestation: 10/18/17 11:46 I personally performed the services described in the documentation, reviewed and edited the documentation which was dictated to the scribe in my presence, and it accurately records my words and actions. (NALLELY OLIVEIRA) Scribe Documentation - Scribe Written by Scribe:: Tonio Childers, 03/20/2017 1035 acting as scribe for :: Savana <TOM TALLEY - Last Filed: 03/20/17 10:35>
[2017-03-20] MEDS ORDERED: KETOROLAC TROMETHAMINE INJ/PF 30 MG/1 ML SDV IV ONE (10:17)
[2017-03-20] MEDS ORDERED: CEFTRIAXONE 1 GM/D5W RTU 1 GM/50 ML RTUPB IV ONE (10:22)
[2017-03-20 10:29] LABS: VENOUS BLOOD BASE EXCESS -1.8 mmol/L; VENOUS BLOOD HCO3 21.1 mmol/L (20-32); VENOUS BLOOD PCO2 30.7 mmHg (35-63); VENOUS BLOOD PH 7.46 (7.30-7.42)
[2017-03-20 10:30] LABS: ABSOLUTE LYMPHOCYTES (AUTO) 0.9 10^3/uL (0.5-4.7); ABSOLUTE MONOCYTES (AUTO) 0.8 10^3/uL (0.1-1.4); ABSOLUTE NEUT (AUTO) 6.1 10^3/uL (1.7-8.2); BASOPHILS % (AUTO) 0.1 % (0-2); EOSINOPHILS % (AUTO) 0.5 % (0-6); HEMOGLOBIN 12.1 g/dL (12.0-15.5); HGB HCT DIFFERENCE 1.3; LYMPHOCYTES % (AUTO) 11.7 % (13-45); MEAN CORPUSCULAR HEMOGLOBIN 30.5 pg (27.0-33.4); MEAN CORPUSCULAR HGB CONC 34.6 g/dL (32.0-36.0); MEAN CORPUSCULAR VOLUME 88 fl (80-97); MONOCYTES % (AUTO) 9.6 % (3-13); RED BLOOD COUNT 3.96 10^6/uL (3.72-5.28); RED CELL DISTRIBUTION WIDTH 12.7 % (11.5-14.0); SEGMENTED NEUTROPHILS % (AUTO) 78.1 % (42-78); WHITE BLOOD COUNT 7.9 10^3/uL (4.0-10.5)
[2017-03-20 10:46] LABS: ALANINE AMINOTRANSFERASE 34 U/L (9-52); ALBUMIN 3.4 g/dL (3.5-5.0); ALKALINE PHOSPHATASE 93 U/L (38-126); ANION GAP 12 (5-19); ASPARTATE AMINO TRANSFERASE 25 U/L (14-36); BILIRUBIN,DIRECT 0.5 mg/dL (0.0-0.4); BILIRUBIN,TOTAL 0.6 mg/dL (0.2-1.3); BLOOD UREA NITROGEN 9 mg/dL (7-20); CALCIUM 8.7 mg/dL (8.4-10.2); CARBON DIOXIDE 21 mmol/L (22-30); CHLORIDE 101 mmol/L (98-107); CREATININE RESULT 0.69 mg/dL (0.52-1.25); GLUCOSE 101 mg/dL (75-110); POTASSIUM 4.5 mmol/L (3.6-5.0); SODIUM 134.1 mmol/L (137-145)
[2017-03-20 11:35] LABS: APPEARANCE,URINE SLIGHTLY-CLOUDY; BILIRUBIN,URINE NEGATIVE (NEGATIVE); GLUCOSE, URINE NEGATIVE (NEGATIVE); KETONES,URINE 20 mg/dL (NEGATIVE); LEUKOCYTE ESTERASE,URINE SMALL (NEGATIVE); NITRITE,URINE NEGATIVE (NEGATIVE); PROTEIN,URINE 30 mg/dL (NEGATIVE); URINE SPECIFIC GRAVITY 1.011; UROBILINOGEN,URINE NEGATIVE mg/dL (<2.0)
[2017-03-20] MEDS ORDERED: ONDANSETRON HCL INJ/PF 4 MG/2 ML SDV IV ONE (12:16)
[2017-03-20] MEDS ORDERED: MORPHINE SULFATE 10 MG/ML INJ IV ONE (12:16)
[2017-03-20] MEDS ORDERED: ACETAMINOPHEN 325 MG TABLET PO PRN (14:31)
[2017-03-20] MEDS ORDERED: ONDANSETRON HCL INJ/PF 4 MG/2 ML SDV IV PRN (14:36)
--- NOTE | 2017-03-20 14:52 | PDOC H&P ---
History of Present Illness Admission Date/PCP: 03/20/17 13:17 Patient complains of: Nausea and vomiting History of Present Illness: EMMA BRUSH is a 26 year old female, with prior history of substance abuse presents to the hospital with 2 weeks of dysuria urgency and frequency with associated back pain. The patient will just take fluids and as needed analgesics [id number] affording no relief. For the past 3 days the patient started to develop chills and fever with associated hematuria. She is also started to develop nausea and vomiting and could not eat. He presented to the emergency room for evaluation yesterday. Urine culture was done and the patient was given ceftriaxone and was discharged home. She was given prescription for antibiotic but she could not afford the medication therefore she presented to the hospital with increasing back pain. On evaluation however her WBC now normalized compared to 15,000 yesterday. Urine culture was growing gram-negative rods. The patient was given another dose of ceftriaxone and morphine and was referred for admission. Patient reports he could not afford the antibiotics prescribed to her. 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 Psychiatric Medical History: Reports: Attention Deficit Hyperactivity Disorder, Substance Abuse Past Surgical History Past Surgical History: Reports: Adenoidectomy, Appendectomy, Tonsillectomy - & adenoids Social History Lives with: Family Smoking Status: Current Every Day Smoker Frequency of Alcohol Use: None Hx Recreational Drug Use: Yes Drugs: Cocaine, Heroin, Marijuana Hx Prescription Drug Abuse: No Family History Family History: None, Reviewed & Not Pertinent Parental Family History Reviewed: Yes Children Family History Reviewed: Yes Sibling(s) Family History Reviewed.: Yes Medication/Allergy Home Medications: No Home Medications 03/20/17 Allergies/Adverse Reactions: cefaclor [From Ceclor] Allergy (Verified 03/20/17 09:38) naloxone Allergy (Verified 03/20/17 09:38) peanut Allergy (Verified 03/20/17 09:38) red dye [Red Dye] Allergy (Verified 03/20/17 09:38) Review of Systems Constitutional: PRESENT: chills, fever(s). ABSENT: headache(s), weakness, weight gain, weight loss Eyes: ABSENT: visual disturbances Ears: ABSENT: hearing changes Nose, Mouth, and Throat: ABSENT: mouth pain, sore throat Cardiovascular: ABSENT: chest pain, dyspnea on exertion, edema, orthropnea, palpitations Respiratory: ABSENT: cough, dyspnea, hemoptysis, sputum Gastrointestinal: PRESENT: abdominal pain - More the flank, bloating, constipation, nausea, vomiting. ABSENT: coffee ground emesis, diarrhea, hematemesis, hematochezia, melena Genitourinary: PRESENT: difficulty urinating, dysuria, hematuria Musculoskeletal: ABSENT: back pain, joint swelling Integumentary: ABSENT: pruritus, rash, wounds Neurological: ABSENT: abnormal gait, abnormal speech, confusion, dizziness, focal weakness, syncope Psychiatric: ABSENT: anxiety, depression, homidical ideation, suicidal ideation Endocrine: ABSENT: cold intolerance, heat intolerance, polydipsia, polyphagia, polyuria Hematologic/Lymphatic: ABSENT: easy bleeding, easy bruising Physical Exam Vital Signs: Temp Pulse Resp BP Pulse Ox 98.3 F 95 18 102/65 99 03/20/17 13:40 03/20/17 12:48 03/20/17 12:48 03/20/17 12:48 03/20/17 12:48 General appearance: PRESENT: no acute distress, cooperative, well-developed, well-nourished Head exam: PRESENT: atraumatic, normocephalic Eye exam: PRESENT: conjunctiva pink, EOMI, PERRLA. ABSENT: scleral icterus Ear exam: PRESENT: normal external ear exam Mouth exam: PRESENT: moist, neck supple, tongue midline Throat exam: ABSENT: post pharyngeal erythema, tonsillar erythema Neck exam: ABSENT: carotid bruit, JVD, lymphadenopathy, thyromegaly Respiratory exam: PRESENT: clear to auscultation soo, unlabored. ABSENT: rales , rhonchi, wheezes Cardiovascular exam: PRESENT: RRR. ABSENT: diastolic murmur, rubs, systolic murmur, tachycardia Pulses: PRESENT: normal dorsalis pedis pul Vascular exam: PRESENT: normal capillary refill GI/Abdominal exam: PRESENT: normal bowel sounds, soft, other - CVA tenderness right more than the left. ABSENT: distended, guarding, mass, organolmegaly, rebound, tenderness Rectal exam: PRESENT: deferred Gentrourinary exam: ABSENT: lesions Extremities exam: PRESENT: full ROM. ABSENT: calf tenderness, clubbing, pedal edema Neurological exam: PRESENT: alert, awake, oriented to person, oriented to place , oriented to time, oriented to situation Psychiatric exam: PRESENT: appropriate affect, normal mood. ABSENT: homicidal ideation, suicidal ideation Focused psych exam: ABSENT: restlessness Skin exam: PRESENT: dry, intact, warm. ABSENT: cyanosis, jaundice, rash Assessment & Plan - Diagnosis (1) Sepsis Qualifiers: Sepsis type: sepsis due to unspecified organism Qualified Code(s): A41.9 - Sepsis, unspecified organism Is this a current diagnosis for this admission?: Yes (2) Pyelonephritis Is this a current diagnosis for this admission?: Yes (3) Substance abuse Is this a current diagnosis for this admission?: Yes (4) POTS (postural orthostatic tachycardia syndrome) Is this a current diagnosis for this admission?: Yes - Time Time Spent: 50 to 70 Minutes Within: within 72 hours - Inpatient Certification Based on my medical assessment, after consideration of the patient's comorbidities, presenting symptoms, or acuity I expect that the services needed warrant INPATIENT care.: Yes I certify that my determination is in accordance with my understanding of Medicare's requirements for reasonable and necessary INPATIENT services [42 CFR 412.3e].: Yes Medical Necessity: Need Close Monitoring Due to Risk of Patient Decompensation, Need For IV Fluids, Need for Pain Control, Need for IV Antibiotics Post Hospital Care: D/C Uniform Attendant Documentation - Plan Summary Plan Summary: The patient will be admitted to the medical floor. We will hydrate the patient with normal saline. We will culture the blood in the urine. I will start the patient intravenously on Invanz. In the meantime as needed antipyretics and antiemetics will be given as well as analgesics. DVT prophylaxis with Lovenox will be placed. Further testing depends on initial evaluation and response to treatment as outlined above.
[2017-03-20 15:33] LABS: LIPASE 62.6 U/L (23-300)
[2017-03-20 15:42] LABS: AMYLASE < 30 U/L (30-110)
[2017-03-20] MEDS ORDERED: ERTAPENEM SODIUM 1 GM in NORMAL SALINE 50 ML IV SCH (16:00)
[2017-03-20] MEDS ORDERED: ERTAPENEM SODIUM INJ 1 GM VIAL IV SCH (16:00)
[2017-03-20] MEDS ORDERED: ENOXAPARIN SODIUM INJ 40 MG/0.4 ML DISP.SYRIN SUBCUT ONE (16:00)
[2017-03-20] MEDS: NORMAL SALINE 1000 ML 1,000 ML IV PRN (16:22)
[2017-03-20] MEDS: DOCUSATE SODIUM 100 MG CAPSULE PO SCH (18:59)
[2017-03-20] MEDS: OXYCODONE-ACETAMINOPHEN 5-325 MG TABLET PO PRN ×2 (18:59→22:55)
[2017-03-20] MEDS ORDERED: MORPHINE SULFATE 10 MG/ML INJ IV PRN (23:27)
[2017-03-20] MEDS ORDERED: OXYCODONE-ACETAMINOPHEN 5-325 MG TABLET PO PRN (23:28)
[2017-03-21] MEDS: NORMAL SALINE 1000 ML 1,000 ML IV PRN ×2 (01:02→05:10)
[2017-03-21] MEDS ORDERED: NORMAL SALINE 1000 ML 1,000 ML IV ONE (01:25)
[2017-03-21] MEDS ORDERED: NORMAL SALINE 1000 ML 1,000 ML IV PRN (01:33)
[2017-03-21] MEDS: MORPHINE SULFATE 10 MG/ML INJ IV PRN ×4 (02:58→11:12)
[2017-03-21 04:54] LABS: ANION GAP 8 (5-19); BLOOD UREA NITROGEN 6 mg/dL (7-20); CALCIUM 8.2 mg/dL (8.4-10.2); CARBON DIOXIDE 22 mmol/L (22-30); CHLORIDE 107 mmol/L (98-107); CREATININE RESULT 0.59 mg/dL (0.52-1.25); GLUCOSE 94 mg/dL (75-110); MAGNESIUM 1.7 mg/dL (1.6-2.3); PHOSPHORUS 2.2 mg/dL (2.5-4.5); POTASSIUM 4.1 mmol/L (3.6-5.0); SODIUM 136.9 mmol/L (137-145)
[2017-03-21] MEDS ORDERED: LANSOPRAZOLE 30 MG TAB.RAP.DR PO SCH (06:00)
[2017-03-21] MEDS: DOCUSATE SODIUM 100 MG CAPSULE PO SCH (09:19)
[2017-03-21] MEDS ORDERED: ENOXAPARIN SODIUM INJ 40 MG/0.4 ML DISP.SYRIN SUBCUT SCH (10:00)
--- NOTE | 2017-03-21 12:21 | PDOC DISCHARGE SUMMARY ---
General - Admit/Disc Date/PCP Admission Date/Primary Care Provider: 03/20/17 14:31 Discharge Date: 03/21/17 - Discharge Diagnosis (1) Sepsis Is this a current diagnosis for this admission?: Yes (2) Pyelonephritis Is this a current diagnosis for this admission?: Yes (3) Substance abuse Is this a current diagnosis for this admission?: Yes (4) POTS (postural orthostatic tachycardia syndrome) Is this a current diagnosis for this admission?: Yes - Additional Information Resuscitation Status: Full Code Discharge Diet: Regular Discharge Activity: Activity As Tolerated, Balance Activity w/Rest Home Medications: Levofloxacin [Levaquin 750 mg Tablet] 750 mg PO DAILY #10 tab 03/21/17 Tramadol HCl [Ultram] 50 mg PO Q8H PRN #15 tablet 03/21/17 Additional Information: Follow-up final results of cultures of the blood and urine outpatient with primary care physician. Return to the emergency room if symptoms worsens or recurs. History of Present Illness Patient complains of: Fever and chills History of Present Illness: EMMA BRUSH is a 26 year old female, with prior history of substance abuse presents to the hospital with 2 weeks of dysuria urgency and frequency with associated back pain. The patient will just take fluids and as needed analgesics [id number] affording no relief. For the past 3 days the patient started to develop chills and fever with associated hematuria. She is also started to develop nausea and vomiting and could not eat. He presented to the emergency room for evaluation yesterday. Urine culture was done and the patient was given ceftriaxone and was discharged home. She was given prescription for antibiotic but she could not afford the medication therefore she presented to the hospital with increasing back pain. On evaluation however her WBC now normalized compared to 15,000 yesterday. Urine culture was growing gram-negative rods. The patient was given another dose of ceftriaxone and morphine and was referred for admission. Patient reports he could not afford the antibiotics prescribed to her. Hospital Course Hospital Course: The patient was admitted to the medical floor. Patient was started on broad- spectrum antibiotic with Invanz. Her WBC is normal. Her fever pattern trended down. Her repeat urine culture remains negative. Her blood cultures remain negative. Initial urine culture done the day prior to admission showed E. coli and viridans Streptococcus. Organism was sensitive to Levaquin and cephalosporins. The patient improved the following day. Her pain and discomfort improved. She is very anxious to go back home. Patient reports that she already has help in terms of purchasing the medication antibiotic and therefore wants to go home now and no longer wants to stay in the hospital. I advised her to return to the emergency room if her symptoms recurs or worsens. She is agreeable. She was advised to see her physician in 3-5 days in follow- up final culture results outpatient with primary care physician. Physical Exam Vital Signs: Temp Pulse Resp BP Pulse Ox 101.6 F H 114 H 20 120/78 99 03/21/17 01:32 03/21/17 01:32 03/21/17 01:32 03/21/17 01:32 03/21/17 01:32 Intake & Output 03/20/17 03/21/17 03/22/17 06:59 06:59 06:59 Intake Total 1940 Output Total 1150 Balance 790 Weight 60.7 kg General appearance: PRESENT: no acute distress, cooperative Head exam: PRESENT: normocephalic Eye exam: PRESENT: EOMI Mouth exam: PRESENT: moist, neck supple Neck exam: ABSENT: JVD Respiratory exam: PRESENT: clear to auscultation soo Cardiovascular exam: PRESENT: RRR GI/Abdominal exam: PRESENT: hypoactive bowel sounds, soft. ABSENT: distended Extremities exam: ABSENT: pedal edema Neurological exam: PRESENT: alert, awake, oriented to person, oriented to place , oriented to time, oriented to situation Skin exam: PRESENT: dry, warm. ABSENT: cyanosis Results Laboratory Results: 03/21/17 04:16 03/21/17 04:16 Sodium 136.9 L Potassium 4.1 Chloride 107 Carbon Dioxide 22 Anion Gap 8 BUN 6 L Creatinine 0.59 Est GFR ( Amer) > 60 Est GFR (Non-Af Amer) > 60 Glucose 94 Calcium 8.2 L Phosphorus 2.2 L Magnesium 1.7 Qualifiers PATEINT BEING DISCHARGED WITH ANY OF THE FOLLOWING DIAGNOSIS?: No Plan Discharge Plan: Follow-up with primary care physician in 3-5 days. Time Spent: Less than 30 Minutes
[2017-03-21 12:51] VITALS: BP 120/78
--- NOTE | 2017-03-28 07:18 | Physician Advisory Note ---
Physician Advisor ProgressNote .: Pursuant to the plan for [facility], I have reviewed the medical record for this patient. Physician Advisor Statement: Post-d/c review r.e. dx sepsis - On 03/19, pt in ED w/bilat pyelo, hypotension, Tmax 100.9, HR 120, RR 30, BP as low as 86/52, WBC 15.2. Given Levaquin, not Rocephin, and 3L of IVF boluses. ED physician documented "discussed concerns about sepsis with pt". Pt chose to go home rather than stay in hospital as recommended. On 03/20, pt w/ fevers/chills, hematuria, N/V/inability to eat, worse bilat flank pain, "skin hot to touch, diaphoretic", T102.2, HR 136, BP as low as 90/58 (MAP as low as 68). WBC 7.9. Lactate level 0.8. Bicarb low, ABG consistent with acute resp alkalosis. Bili & Cr WNL, plts WNL. Given Rocephin in ED, then Invanz, along with 2L IVF boluses then continuous IVF , & adjustment of tx based on culture results. Pt met Sepsis-2 criteria for dx of sepsis due to pyelonephritis (fever, tachycardia). She was hypotensive, even after 3L IVF the day before. Pt also met qSOFA criteria for dx of sepsis due to pyelonephritis (R>22, sBP < 100). She was treated for sepsis with multiple boluses of IVF, prompt abx IV, & responded to tx. She was again eager for d/c on 03/21, & was allowed to go, despite ongoing fevers and tachycardia. (Clearly, if she had not so pushed for d /c, the attending would have kept her another night to monitor response to tx.) CK
== END 2017-03-21 13:17 | disposition home or self-care (01) | DRG 872 ==
LOC: ER 09:19 → EH 13:17 → UNDOADMIN 13:17 → EH 14:31 → 4S 15:48 → EH 15:48
DX: A41.9 Sepsis, unspecified organism (principal); N12 Tubulo-interstitial nephritis, not specified as acute or chronic; I49.8 Other specified cardiac arrhythmias; F90.9 Attention-deficit hyperactivity disorder, unspecified type; F17.210 Nicotine dependence, cigarettes, uncomplicated; F19.10 Other psychoactive substance abuse, uncomplicated; Z79.899 Other long term (current) drug therapy; Z88.1 Allergy status to other antibiotic agents; Z91.010 Allergy to peanuts; Z88.8 Allergy status to other drugs, medicaments and biological substances; Z91.048 Other nonmedicinal substance allergy status
CPT/HCPCS: 36415; 80048; 80053; 81001; 82150; 82803; 83605; 83690; 83735; 84100; 84443; 84703; 85025; 87040; 87086; 96361; 96365; 96375; 99285; J0696; J1335; J1650; J1885; J2270; J2405; J7030

== ENCOUNTER 2018-02-10 11:30 | Emergency (ER) | payer SELFPAY ==
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
[2018-02-10] MEDS ORDERED: MORPHINE SULFATE 10 MG/ML INJ IV ONE (13:11)
[2018-02-10] MEDS ORDERED: NORMAL SALINE 1000 ML 1,000 ML IV ONE ×2 (13:11→14:59)
[2018-02-10] MEDS ORDERED: FENTANYL CITRATE INJ/PF 100 MCG/2 ML AMPUL IM ONE (14:36)
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
[2018-02-10 16:32] LABS: ABSOLUTE BASOPHILS # (AUTO) 0.1 10^3/uL (0.0-0.2); ABSOLUTE LYMPHOCYTES (AUTO) 1.1 10^3/uL (0.5-4.7); ABSOLUTE MONOCYTES (AUTO) 1.1 10^3/uL (0.1-1.4); ABSOLUTE NEUT (AUTO) 8.7 10^3/uL (1.7-8.2); BASOPHILS % (AUTO) 0.8 % (0-2); HEMATOCRIT 31.5 % (36.0-47.0); HEMOGLOBIN 10.7 g/dL (12.0-15.5); MEAN CORPUSCULAR HEMOGLOBIN 28.5 pg (27.0-33.4); MEAN CORPUSCULAR HGB CONC 33.9 g/dL (32.0-36.0); MEAN CORPUSCULAR VOLUME 84 fl (80-97); MONOCYTES % (AUTO) 9.6 % (3-13); PLATELET COUNT 169 10^3/uL (150-450); RED BLOOD COUNT 3.75 10^6/uL (3.72-5.28); RED CELL DISTRIBUTION WIDTH 13.6 % (11.5-14.0); SEGMENTED NEUTROPHILS % (AUTO) 79.6 % (42-78); TOTAL CELLS COUNTED % (AUTO) 100 %
[2018-02-10] MEDS ORDERED: FENTANYL CITRATE INJ/PF 100 MCG/2 ML AMPUL IV ONE (16:33)
[2018-02-10] MEDS ORDERED: VANCOMYCIN HCL INJ 1000 MG VIAL IV ONE (16:35)
[2018-02-10 16:54] LABS: ANION GAP 8 (5-19); BLOOD UREA NITROGEN 12 mg/dL (7-20); CALCIUM 8.3 mg/dL (8.4-10.2); CARBON DIOXIDE 22 mmol/L (22-30); CHLORIDE 102 mmol/L (98-107); GLUCOSE 131 mg/dL (75-110); POTASSIUM 3.6 mmol/L (3.6-5.0); SODIUM 132.4 mmol/L (137-145)
[2018-02-10] MEDS ORDERED: HYDROMORPHONE HCL INJ/PF 2 MG/ML AMPULE IV ONE ×2 (17:06→20:18)
[2018-02-10 19:11] LABS: APPEARANCE,URINE CLOUDY; BILIRUBIN,URINE NEGATIVE (NEGATIVE); COLOR,URINE AMBER; GLUCOSE, URINE NEGATIVE (NEGATIVE); KETONES,URINE NEGATIVE (NEGATIVE); LEUKOCYTE ESTERASE,URINE LARGE (NEGATIVE); NITRITE,URINE NEGATIVE (NEGATIVE); PROTEIN,URINE 100 mg/dL (NEGATIVE); URINE SPECIFIC GRAVITY 1.024
[2018-02-10 19:24] LABS: URINE BARBITURATES SCREEN NEGATIVE; URINE BENZODIAZEPINES SCREEN NEGATIVE; URINE COCAINE SCREEN NEGATIVE; URINE MARIJUANA (THC) SCREEN NEGATIVE; URINE METHADONE SCREEN NEGATIVE; URINE PHENCYCLIDINE SCREEN NEGATIVE
[2018-02-10] MEDS ORDERED: ACETAMINOPHEN 325 MG TABLET PO ONE (20:48)
[2018-02-10] MEDS: HYDROMORPHONE HCL INJ/PF 2 MG/ML AMPULE IV SCH ×2 (21:02→23:53)
[2018-02-10] MEDS: VANCOMYCIN HCL INJ 1000 MG VIAL IV SCH (21:39)
[2018-02-10] MEDS ORDERED: DIPHENHYDRAMINE HCL 50 MG/ML VIAL IV ONE (23:38)
[2018-02-11] MEDS ORDERED: NORMAL SALINE 1000 ML 1,000 ML IV ONE ×2 (01:17→08:58)
[2018-02-11] MEDS: HYDROMORPHONE HCL INJ/PF 2 MG/ML AMPULE IV SCH ×3 (04:15→14:24)
[2018-02-11] MEDS ORDERED: PIPERACILLIN/TAZOBACTAM 3.375 GM VIAL IV ONE (04:25)
[2018-02-11] MEDS ORDERED: IBUPROFEN 600 MG TABLET PO ONE (04:39)
[2018-02-11] MEDS ORDERED: KETOROLAC TROMETHAMINE INJ/PF 30 MG/1 ML SDV IV ONE ×2 (06:08→12:29)
--- NOTE | 2018-02-11 08:49 | RADIOLOGY REPORT (SQ) ---
EXAM DESCRIPTION: NM LUNG VENT/PERF SCAN COMPLETED DATE/TIME: 02/10/2018 9:06 pm REASON FOR STUDY: SOB, PNUEMONIA, CONTUSIONS COMPARISON: CT chest 02/10/2018 RADIONUCLIDE AND DOSE: 5 millicuries TC-99m MAA Intravenous 31.6 millicuries TC-99m DTPA Inhaled aerosol TECHNIQUE: Eight views of the lungs acquired post ventilation of DTPA aerosol. Eight matching views of the lungs acquired following injection of MAA. LIMITATIONS: None. FINDINGS: VENTILATION: Limited ventilation scan with clumping of activity in the central airways. S wallowed activity in the stomach. PERFUSION: Multiple nonsegmental perfusion defects are present, which correlate with multiple foci of pneumonia on CT chest 02/10/2018 worrisome for septic emboli. OTHER: No other significant finding. IMPRESSION: Multiple nonsegmental perfusion defects are present which correlate with areas of consol idation on CT chest 02/10/2018, worrisome for septic emboli given history of positive blood cultures a nd endocarditis COMMENT: Report called to Dr. Bourne TECHNICAL DOCUMENTATION: JOB ID: [id number] [employer]- All Rights Reserved Reading location - IP/workstation name: [email or web address]
--- NOTE | 2018-02-11 09:01 | ER Document Report ---
Doctor's Note Notes: 02/11/18 09:00 Patient still spiking temperatures. Blood culture positive for gram-positive cocci in clusters. Endocarditis diagnosis as well as now having diagnosis of septic emboli in the lung. Confirmed with VQ scan as well. Blood pressure dropping at 82/60 with a heart rate of 100. Oxygen saturations are 98%. I am reconsulting with the transfer center to see if we can rapidly transport this patient who is not doing better and will need more intensive care. Waiting on consultation with budder at transfer center. 02/11/18 09:10 I have reconsulted with the transfer center. They are going to try and upgrade her but no guarantees at this time. 02/11/18 09:47 The budder at transfer center has called back in they have refused her as an upgraded ICU transfer. 02/11/18 16:42 Patient scheduled now for a q. 6 hour Zosyn and every [address] Roman has been updated on the patient.
[2018-02-11] MEDS: VANCOMYCIN HCL INJ 1000 MG VIAL IV SCH (09:17)
--- NOTE | 2018-02-11 09:49 | XCELERA REPORT ---
[address] [address] Transthoracic Echocardiogram Report Name: EMMA BRUSH Age: 27 yrs Gender: Female : 1990 Patient Status: Emergency Patient Location: ER Study Date: 02/10/2018 05:37 PM Height: 60 in Weight: 116 lb BSA: 1.5 m2 Procedure: A complete two-dimensional transthoracic echocardiogram was performed (2D, M-mode, spectral and color flow Doppler). The study was technically difficult with many images being suboptimal in quality. Reason For Study: concern for endocarditis Ordering Physician: THELMA DEE Performed By: Rosalva Mejía Interpretation Summary The left ventricular ejection fraction is normal. There is normal left ventricular wall thickness. The left ventricle is grossly normal size. LV diastolic function could not be adequately assessed. Not all wall segments were well visualized. The right ventricle is mild to moderately dilated. The right ventricular systolic function is normal. The right atrium is normal in size The left atrium is mildly dilated. There is a trace amount of mitral regurgitation There is no mitral valve stenosis. There is no aortic valve stenosis No aortic regurgitation is present. There is a mild amount of tricuspid regurgitation Right ventricular systolic pressure is at the upper limits of normal The aortic root is not well visualized. The inferior vena cava appeared normal and decreased > 50% with respiration (RAP 5-10 mmHg) Minimal pericardial effusion. Consider JUDI if clinically indicated. The study was technically difficult with many images being suboptimal in quality. MMode/2D Measurements & Calculations RVDd: 2.0 cm LVIDd: 4.7 cm FS: 36.3 % Ao root diam: 2.7 cm IVSd: 0.78 cm LVIDs: 3.0 cm EDV(Teich): 100.6 ml Ao root area: 5.6 cm2 LVPWd: 0.77 cm ESV(Teich): 34.1 ml LA dimension: 2.5 cm EF(Teich): 66.1 % Doppler Measurements & Calculations MV E max haile: MV P1/2t max haile: Ao V2 max: LV V1 max P.6 cm/sec 88.2 cm/sec 119.9 cm/sec 3.8 mmHg MV A max haile: MV P1/2t: 55.9 msec Ao max P.7 mmHg LV V1 max: 79.5 cm/sec MVA(P1/2t): 3.9 cm2 97.7 cm/sec MV E/A: 0.90 MV dec slope: 462.0 cm/sec2 MV dec time: 0.13 sec TV V2 max: PA V2 max: MV P1/2t-pr_phl: 108.6 cm/sec 103.7 cm/sec 56.0 msec TV max P.7 mmHgPA max P.3 mmHg Left Ventricle The left ventricle is grossly normal size. There is normal left ventricular wall thickness. The left ventricular ejection fraction is normal. LV diastolic function could not be adequately assessed. Not all wall segments were well visualized. Right Ventricle The right ventricle is mild to moderately dilated. There is normal right ventricular wall thickness. The right ventricular systolic function is normal. Atria The right atrium is normal in size. The left atrium is mildly dilated. Interarterial septum not well visualized and not well dopplered. Cannot comment on ASD/PFO presence. Mitral Valve The mitral valve is grossly normal. There is no mitral valve stenosis. There is a trace amount of mitral regurgitation. Aortic Valve The aortic valve is not well visualized secondary to technical limitations. There is no aortic valve stenosis. No aortic regurgitation is present. Tricuspid Valve The tricuspid valve is not well visualized, but is grossly normal. There is no tricuspid stenosis. There is a mild amount of tricuspid regurgitation. Right ventricular systolic pressure is at the upper limits of normal. Pulmonic Valve The pulmonic valve is not well visualized. Great Vessels The aortic root is not well visualized. The inferior vena cava appeared normal and decreased > 50% with respiration (RAP 5-10 mmHg). Effusions Minimal pericardial effusion. Incidental Findings Consider JUDI if clinically indicated. : THELMA DEE Shyamal
[2018-02-11] MEDS ORDERED: PIPERACILLIN/TAZOBACTAM 3.375 GM VIAL IV SCH (16:45)
[2018-02-11] MEDS: ACETAMINOPHEN 325 MG TABLET PO PRN (17:29)
--- NOTE | 2018-02-11 17:52 | ER Document Report ---
Doctor's Note Notes: 02/11/18 17:50 Patient of impending in the ER for over 30 hours for transfer to tertiary care facility. Provided still pending transfer. I did call [facility] and was transferred to the [facility] currently trying to transfer patient is out of the [place] states the patient is on the list waiting for transfer to a tertiary care facility. Patient is concerned that she continues to be in pain. Sign out to myself stated that whenever the patient received Dilaudid that she would get hypotensive insulin this to the patient however patient states that she is suffering and is in excruciating pain. Patient has Dilaudid 0.5 mg ordered I will also add on Tylenol as a standing order. Vancomycin and Zosyn have been ordered. At this time been no repeat lab therefore these were ordered by myself because of the complexity of the patient' s case I did request the hospitalist will consult and continue to monitor the patient to help with medical management. This was discussed with Dr. Santiago
[2018-02-11 18:05] LABS: HEMATOCRIT 30.4 % (36.0-47.0); HEMOGLOBIN 10.3 g/dL (12.0-15.5); MEAN CORPUSCULAR HEMOGLOBIN 28.5 pg (27.0-33.4); MEAN CORPUSCULAR HGB CONC 33.9 g/dL (32.0-36.0); MEAN CORPUSCULAR VOLUME 84 fl (80-97); PLATELET COUNT 183 10^3/uL (150-450); RED BLOOD COUNT 3.62 10^6/uL (3.72-5.28); RED CELL DISTRIBUTION WIDTH 13.9 % (11.5-14.0); WHITE BLOOD COUNT 11.7 10^3/uL (4.0-10.5)
[2018-02-11 18:18] LABS: ALANINE AMINOTRANSFERASE 24 U/L (9-52); ALBUMIN 2.5 g/dL (3.5-5.0); ALKALINE PHOSPHATASE 79 U/L (38-126); ANION GAP 7 (5-19); ASPARTATE AMINO TRANSFERASE 16 U/L (14-36); BILIRUBIN,DIRECT 0.4 mg/dL (0.0-0.4); BILIRUBIN,TOTAL 0.5 mg/dL (0.2-1.3); BLOOD UREA NITROGEN 12 mg/dL (7-20); CALCIUM 7.8 mg/dL (8.4-10.2); CARBON DIOXIDE 22 mmol/L (22-30); CHLORIDE 109 mmol/L (98-107); GLUCOSE 126 mg/dL (75-110); POTASSIUM 3.4 mmol/L (3.6-5.0); SODIUM 137.7 mmol/L (137-145); TOTAL PROTEIN 5.5 g/dL (6.3-8.2)
[2018-02-11 18:21] LABS: ABSOLUTE LYMPHOCYTES# (MANUAL) 1.4 10^3/uL (0.5-4.7); ABSOLUTE MONOCYTES # (MANUAL) 0.4 10^3/uL (0.1-1.4); ABSOLUTE NEUTROPHILS# (MANUAL) 9.9 10^3/uL (1.7-8.2); BASOPHILS % (MANUAL) 0 % (0-2); EOSINOPHILS % (MANUAL) 0 % (0-6); LYMPHOCYTES % (MANUAL) 12 % (13-45); MONOCYTES % (MANUAL) 3 % (3-13); SEGMENTED NEUTROPHILS % (MAN) 85 % (42-78); TOTAL CELLS COUNTED 100
[2018-02-11 18:24] LABS: OVALOCYTES SLIGHT; PLATELET COMMENT ADEQUATE; POIKILOCYTOSIS SLIGHT; TOXIC VACUOLATION PRESENT
[2018-02-11 18:44] LABS: VANCOMYCIN,TROUGH 5.5 ug/mL (5.0-20.0)
[2018-02-11] MEDS ORDERED: OXYCODONE-ACETAMINOPHEN 5-325 MG TABLET PO PRN (18:45)
--- NOTE | 2018-02-11 19:00 | PDOC CONSULTATION ---
Consultation Consult Date: 02/11/18 Attending physician:: COLTEN MIDDLETON Consult reason:: Medical management History of Present Illness History of Present Illness: EMMA BRUSH is a 27 year old female patient with past medical history of IV drug abuse admitted with a diagnosis of infective endocarditis, she has been awaiting transfer to [facility] (formerly [facility]). Patient has been on vancomycin and Zosyn. The hospitalist team is consulted for medical management. Patient is continually seeking IV Dilaudid. As I switched her Dilaudid to fentanyl patch and Percocet for breakthrough pain. Past Medical History Psychiatric Medical History: Reports: Attention Deficit Hyperactivity Disorder Past Surgical History Past Surgical History: Reports: Adenoidectomy, Appendectomy, Tonsillectomy - & adenoids Social History Lives with: Alone Smoking Status: Current Every Day Smoker Frequency of Alcohol Use: Occasional Hx Recreational Drug Use: Yes Drugs: Cocaine, Heroin, Marijuana Hx Prescription Drug Abuse: No - Advance Directive Resuscitation Status: Full Code Family History Family History: Reviewed & Not Pertinent Parental Family History Reviewed: Yes Children Family History Reviewed: Yes Sibling(s) Family History Reviewed.: Yes Medication/Allergy Home Medications: Levofloxacin [Levaquin 750 mg Tablet] 750 mg PO DAILY #10 tab 03/21/17 Tramadol HCl [Ultram] 50 mg PO Q8H PRN #15 tablet 03/21/17 Allergies/Adverse Reactions: cefaclor [From Ceclor] Allergy (Verified 02/10/18 11:41) naloxone Allergy (Verified 02/10/18 11:41) peanut Allergy (Verified 02/10/18 11:41) red dye [Red Dye] Allergy (Verified 02/10/18 11:41) Review of Systems Constitutional: ABSENT: chills, fever(s), headache(s), weight gain, weight loss Eyes: ABSENT: visual disturbances Ears: ABSENT: hearing changes Cardiovascular: ABSENT: chest pain, dyspnea on exertion, edema, orthropnea, palpitations Respiratory: ABSENT: cough, hemoptysis Gastrointestinal: ABSENT: abdominal pain, constipation, diarrhea, hematemesis, hematochezia, nausea, vomiting Genitourinary: ABSENT: dysuria, hematuria Musculoskeletal: PRESENT: other - Chest pain. ABSENT: joint swelling Integumentary: ABSENT: rash, wounds Neurological: ABSENT: abnormal gait, abnormal speech, confusion, dizziness, focal weakness, syncope Psychiatric: ABSENT: anxiety, depression, homidical ideation, suicidal ideation Endocrine: ABSENT: cold intolerance, heat intolerance, polydipsia, polyuria Hematologic/Lymphatic: ABSENT: easy bleeding, easy bruising Physical Exam Vital Signs: Temp Pulse Resp BP Pulse Ox 99.8 F 138 H 36 H 116/95 H 98 02/11/18 17:39 02/10/18 20:26 02/11/18 17:01 02/11/18 17:00 02/11/18 17:01 Intake & Output 02/10/18 02/11/18 02/12/18 06:59 06:59 06:59 Intake Total 1000 Balance 1000 Weight 53 kg General appearance: PRESENT: mild distress Head exam: PRESENT: other - Right black eye Eye exam: PRESENT: other - Subconjunctival hemorrhage Neck exam: ABSENT: carotid bruit, JVD, lymphadenopathy, thyromegaly Cardiovascular exam: PRESENT: RRR. ABSENT: diastolic murmur, rubs, systolic murmur GI/Abdominal exam: PRESENT: normal bowel sounds, soft. ABSENT: distended, guarding, mass, organolmegaly, rebound, tenderness Extremities exam: PRESENT: full ROM. ABSENT: calf tenderness, clubbing, pedal edema Results Laboratory Results: 02/11/18 17:40 02/11/18 17:40 02/10/18 02/11/18 02/11/18 18:34 17:40 17:40 WBC 11.7 H RBC 3.62 L Hgb 10.3 L Hct 30.4 L MCV 84 MCH 28.5 MCHC 33.9 RDW 13.9 Plt Count 183 Seg Neutrophils % Not Reportable Lymphocytes % Not Reportable Monocytes % Not Reportable Eosinophils % Not Reportable Basophils % Not Reportable Absolute Neutrophils Not Reportable Absolute Lymphocytes Not Reportable Absolute Monocytes Not Reportable Absolute Eosinophils Not Reportable Absolute Basophils Not Reportable Sodium 137.7 Potassium 3.4 L Chloride 109 H Carbon Dioxide 22 Anion Gap 7 BUN 12 Creatinine 0.63 Est GFR ( Amer) > 60 Est GFR (Non-Af Amer) > 60 Glucose 126 H Calcium 7.8 L Total Bilirubin 0.5 AST 16 ALT 24 Alkaline Phosphatase 79 Total Protein 5.5 L Albumin 2.5 L Urine Color SHADIA Urine Appearance CLOUDY Urine pH 6.0 Ur Specific [place] 1.024 Urine Protein 100 H Urine Glucose (UA) NEGATIVE Urine Ketones NEGATIVE Urine Blood SMALL H Urine Nitrite NEGATIVE Ur Leukocyte Esterase LARGE H Urine WBC (Auto) 14 Urine RBC (Auto) 21 Impressions: Abdomen/Pelvis CT 02/10/18 13:48 IMPRESSION: NO ACUTE PROCESS IN THE ABDOMEN OR PELVIS. The liver and spleen appear enlarged without focal hepatic or splenic abnormalities being identified. Other findings as noted above. Chest CT 02/10/18 13:48 IMPRESSION: Multicentric areas of opacification. Cannot exclude multicentric pneumonia. The distribution suggests that contusions are less likely. Facial Bones CT 02/10/18 13:48 IMPRESSION: NO ACUTE FINDINGS. Lung Scan-VQ NM 02/10/18 17:12 IMPRESSION: Multiple nonsegmental perfusion defects are present which correlate with areas of consolidation on CT chest 02/10/2018, worrisome for septic emboli given history of positive blood cultures and endocarditis Assessment & Plan - Diagnosis (1) Infective endocarditis Is this a current diagnosis for this admission?: Yes Plan: Continue IV vancomycin and Zosyn (2) IV drug abuse Is this a current diagnosis for this admission?: Yes Plan: Counseled to quit and remain sober. (3) Polysubstance abuse Is this a current diagnosis for this admission?: Yes Plan: Patient counseled and encouraged to quit
--- NOTE | 2018-02-11 19:33 | RADIOLOGY REPORT (SQ) ---
EXAM DESCRIPTION: CHEST SINGLE VIEW COMPLETED DATE/TIME: 02/11/2018 7:23 pm REASON FOR STUDY: Chest pain COMPARISON: CT 19 and 18 EXAM PARAMETERS: NUMBER OF VIEWS: One view. TECHNIQUE: Single frontal radiographic view of the chest acquired. RADIATION DOSE: NA LIMITATIONS: None. FINDINGS: LUNGS AND PLEURA: Bilateral lower lobe infiltrates are present. MEDIASTINUM AND HILAR STRUCTURES: No masses. Contour normal. HEART AND VASCULAR STRUCTURES: Heart normal in size. Normal vasculature. BONES: No acute findings. HARDWARE: None in the chest. OTHER: No other significant finding. IMPRESSION: Bilateral lower lobe pneumonia. TECHNICAL DOCUMENTATION: JOB ID: [id number] [email or web address] All Rights Reserved Reading location - IP/workstation name: [email or web address]
[2018-02-11] MEDS ORDERED: FENTANYL 50 MCG/HR PATCH.TD72 TD SCH (20:00)
[2018-02-11] MEDS: VANCOMYCIN HCL 1,000 MG in DEXTROSE 5%-WATER 250 ML IV SCH (22:32)
[2018-02-12] MEDS: PIPERACILLIN SODIUM/TAZOBACTAM 3.375 GM in NORMAL SALINE 100 ML IV SCH ×4 (01:09→18:42)
--- NOTE | 2018-02-12 04:03 | ER Document Report ---
Doctor's Note Notes: 02/12/18 04:00 Patient unable to go to [facility] as they are now evacuating. She will be coordinated to another bed at another facility via disaster center. Please note, patient "lost" her fentanyl patch. Has been informed no more addictive substances to be given in ED. Benadryl as needed for agitation. No N/V/D. HR 95 BP 98/45 RR 19
[2018-02-12] MEDS ORDERED: METHADONE HCL 10 MG TABLET PO ONE (06:06)
[2018-02-12] MEDS: ACETAMINOPHEN 325 MG TABLET PO PRN ×3 (08:44→17:23)
--- NOTE | 2018-02-12 11:08 | ER Document Report ---
Doctor's Note Notes: 02/12/18 11:08 Patient has been accepted now at [facility] in [place], [place], Dr. Nation accepting. Will continue to try and arrange transport. 02/12/18 15:30 02/12/18 15:31 Transport is on its way. Should be here shortly. Patient continues to remain stable at this time. Anticipating transport shortly.
[2018-02-12] MEDS: VANCOMYCIN HCL 1,000 MG in DEXTROSE 5%-WATER 250 ML IV SCH (11:30)
[2018-02-12] MEDS ORDERED: PIPERACILLIN SODIUM/TAZOBACTAM 3.375 GM in NORMAL SALINE 100 ML IV SCH (12:00)
[2018-02-12 13:15] LABS: ABSOLUTE BASOPHILS # (AUTO) 0.1 10^3/uL (0.0-0.2); ABSOLUTE EOSINOPHILS # (AUTO) 0.1 10^3/uL (0.0-0.6); ABSOLUTE MONOCYTES (AUTO) 1.6 10^3/uL (0.1-1.4); ABSOLUTE NEUT (AUTO) 11.7 10^3/uL (1.7-8.2); BASOPHILS % (AUTO) 0.6 % (0-2); EOSINOPHILS % (AUTO) 0.5 % (0-6); HEMATOCRIT 31.4 % (36.0-47.0); HEMOGLOBIN 10.7 g/dL (12.0-15.5); LYMPHOCYTES % (AUTO) 12.8 % (13-45); MEAN CORPUSCULAR HEMOGLOBIN 28.5 pg (27.0-33.4); MEAN CORPUSCULAR HGB CONC 34.1 g/dL (32.0-36.0); MEAN CORPUSCULAR VOLUME 84 fl (80-97); MONOCYTES % (AUTO) 10.2 % (3-13); PLATELET COUNT 226 10^3/uL (150-450); RED BLOOD COUNT 3.75 10^6/uL (3.72-5.28); SEGMENTED NEUTROPHILS % (AUTO) 75.9 % (42-78); TOTAL CELLS COUNTED % (AUTO) 100 %; WHITE BLOOD COUNT 15.4 10^3/uL (4.0-10.5)
--- NOTE | 2018-02-12 16:04 | PDOC PROGRESS REPORT ---
Subjective Subjective:: This patient propped up in bed. She is awake alert oriented. Her pain is well controlled. Reason For Visit: DIZZINESS/TROUBLE BREATHING Physical Exam Vital Signs: Temp Pulse Resp BP Pulse Ox 98.6 F 138 H 22 H 96/55 L 99 02/12/18 11:33 02/10/18 20:26 02/12/18 14:01 02/12/18 14:00 02/11/18 21:04 Intake & Output 02/11/18 02/12/18 02/13/18 06:59 06:59 06:59 Intake Total 1450 650 Balance 1450 650 Weight 53 kg General appearance: PRESENT: no acute distress Head exam: PRESENT: atraumatic, normocephalic Eye exam: PRESENT: other - Right subconjunctival hemorrhage Ear exam: PRESENT: normal external ear exam Mouth exam: PRESENT: moist, tongue midline Neck exam: ABSENT: carotid bruit, JVD, lymphadenopathy, thyromegaly Respiratory exam: PRESENT: clear to auscultation soo. ABSENT: rales, rhonchi, wheezes Cardiovascular exam: PRESENT: RRR. ABSENT: diastolic murmur, rubs, systolic murmur Pulses: PRESENT: normal dorsalis pedis pul Vascular exam: PRESENT: normal capillary refill GI/Abdominal exam: PRESENT: normal bowel sounds, soft. ABSENT: distended, guarding, mass, organolmegaly, rebound, tenderness Rectal exam: PRESENT: deferred Extremities exam: PRESENT: full ROM. ABSENT: calf tenderness, clubbing, pedal edema Neurological exam: PRESENT: alert, awake, oriented to person, oriented to place , oriented to time, oriented to situation, CN II-XII grossly intact. ABSENT: motor sensory deficit Psychiatric exam: PRESENT: appropriate affect, normal mood. ABSENT: homicidal ideation, suicidal ideation Skin exam: PRESENT: dry, intact, warm. ABSENT: cyanosis, rash Results Laboratory Results: 02/12/18 12:59 02/11/18 17:40 02/11/18 02/11/18 02/12/18 17:40 17:40 12:59 WBC 11.7 H 15.4 H RBC 3.62 L 3.75 Hgb 10.3 L 10.7 L Hct 30.4 L 31.4 L MCV 84 84 MCH 28.5 28.5 MCHC 33.9 34.1 RDW 13.9 14.0 Plt Count 183 226 Seg Neutrophils % Not Reportable 75.9 Lymphocytes % Not Reportable 12.8 L Monocytes % Not Reportable 10.2 Eosinophils % Not Reportable 0.5 Basophils % Not Reportable 0.6 Absolute Neutrophils Not Reportable 11.7 H Absolute Lymphocytes Not Reportable 2.0 Absolute Monocytes Not Reportable 1.6 H Absolute Eosinophils Not Reportable 0.1 Absolute Basophils Not Reportable 0.1 Sodium 137.7 Potassium 3.4 L Chloride 109 H Carbon Dioxide 22 Anion Gap 7 BUN 12 Creatinine 0.63 Est GFR ( Amer) > 60 Est GFR (Non-Af Amer) > 60 Glucose 126 H Lactic Acid Calcium 7.8 L Total Bilirubin 0.5 AST 16 ALT 24 Alkaline Phosphatase 79 Total Protein 5.5 L Albumin 2.5 L 02/12/18 12:59 WBC RBC Hgb Hct MCV MCH MCHC RDW Plt Count Seg Neutrophils % Lymphocytes % Monocytes % Eosinophils % Basophils % Absolute Neutrophils Absolute Lymphocytes Absolute Monocytes Absolute Eosinophils Absolute Basophils Sodium Potassium Chloride Carbon Dioxide Anion Gap BUN Creatinine Est GFR ( Amer) Est GFR (Non-Af Amer) Glucose Lactic Acid 1.0 Calcium Total Bilirubin AST ALT Alkaline Phosphatase Total Protein Albumin Impressions: Abdomen/Pelvis CT 02/10/18 13:48 IMPRESSION: NO ACUTE PROCESS IN THE ABDOMEN OR PELVIS. The liver and spleen appear enlarged without focal hepatic or splenic abnormalities being identified. Other findings as noted above. Chest CT 02/10/18 13:48 IMPRESSION: Multicentric areas of opacification. Cannot exclude multicentric pneumonia. The distribution suggests that contusions are less likely. Facial Bones CT 02/10/18 13:48 IMPRESSION: NO ACUTE FINDINGS. Lung Scan-VQ [place] 02/10/18 17:12 IMPRESSION: Multiple nonsegmental perfusion defects are present which correlate with areas of consolidation on CT chest 02/10/2018, worrisome for septic emboli given history of positive blood cultures and endocarditis Chest X-Ray 02/11/18 00:00 IMPRESSION: Bilateral lower lobe pneumonia. Assessment & Plan - Diagnosis (1) Infective endocarditis Is this a current diagnosis for this admission?: Yes Plan: Continue IV vancomycin and Zosyn (2) IV drug abuse Is this a current diagnosis for this admission?: Yes Plan: Counseled to quit and remain sober. (3) Polysubstance abuse Is this a current diagnosis for this admission?: Yes Plan: Patient counseled and encouraged to quit
[2018-02-12 17:49] VITALS: BP 93/60
[2018-02-12 18:19] LABS: ABSOLUTE EOSINOPHILS # (AUTO) 0.1 10^3/uL (0.0-0.6); ABSOLUTE LYMPHOCYTES (AUTO) 1.9 10^3/uL (0.5-4.7); ABSOLUTE MONOCYTES (AUTO) 1.4 10^3/uL (0.1-1.4); ABSOLUTE NEUT (AUTO) 10.4 10^3/uL (1.7-8.2); BASOPHILS % (AUTO) 0.3 % (0-2); EOSINOPHILS % (AUTO) 0.6 % (0-6); HEMATOCRIT 31.7 % (36.0-47.0); HEMOGLOBIN 10.7 g/dL (12.0-15.5); LYMPHOCYTES % (AUTO) 13.9 % (13-45); MEAN CORPUSCULAR HEMOGLOBIN 28.3 pg (27.0-33.4); MEAN CORPUSCULAR HGB CONC 33.7 g/dL (32.0-36.0); MEAN CORPUSCULAR VOLUME 84 fl (80-97); MONOCYTES % (AUTO) 10.2 % (3-13); PLATELET COUNT 216 10^3/uL (150-450); RED BLOOD COUNT 3.77 10^6/uL (3.72-5.28); RED CELL DISTRIBUTION WIDTH 14.2 % (11.5-14.0); TOTAL CELLS COUNTED % (AUTO) 100 %; WHITE BLOOD COUNT 13.8 10^3/uL (4.0-10.5)
--- NOTE | 2018-02-12 19:41 | ER Document Report ---
Doctor's Note Notes: 02/12/18 19:38 Patient is medically stable for transfer. Transport is here to get her.
== END 2018-02-12 19:51 | disposition other institution (70) ==
LOC: ER 11:30
DX: J18.9 Pneumonia, unspecified organism (principal); R04.2 Hemoptysis; N39.0 Urinary tract infection, site not specified; R00.0 Tachycardia, unspecified; R06.02 Shortness of breath; F19.10 Other psychoactive substance abuse, uncomplicated; Y09 Assault by unspecified means; R50.9 Fever, unspecified; R42 Dizziness and giddiness; R07.9 Chest pain, unspecified; F17.200 Nicotine dependence, unspecified, uncomplicated
CPT/HCPCS: 36415; 87040; 83605 ×2; 85025; 87077; 80048; 80053; 81001; 87186; 80307; 80202; 93306; 78582; 70486; 71250; 74176; A9540; A9567; J3010; J1885; J1170 ×2; J3490; J7060; J7030 ×2; J3370 ×2; J2543 ×2; Q9969

== ENCOUNTER 2018-04-29 21:54 | Emergency (ER) | payer SELFPAY ==
[2018-04-29 22:04] VITALS: BP 113/79
[2018-04-29 22:40] LABS: APPEARANCE,URINE SLIGHTLY-CLOUDY; BILIRUBIN,URINE NEGATIVE (NEGATIVE); COLOR,URINE YELLOW; GLUCOSE, URINE NEGATIVE (NEGATIVE); KETONES,URINE NEGATIVE (NEGATIVE); LEUKOCYTE ESTERASE,URINE LARGE (NEGATIVE); NITRITE,URINE POSITIVE (NEGATIVE); PROTEIN,URINE NEGATIVE (NEGATIVE); URINE SPECIFIC GRAVITY 1.013; UROBILINOGEN,URINE NEGATIVE mg/dL (<2.0)
[2018-04-29] MEDS ORDERED: ONDANSETRON 4 MG TAB.RAPDIS PO ONE (23:20)
--- NOTE | 2018-04-29 23:22 | ER Document Report ---
ED Medical Screen (RME) - General Chief Complaint: Chest Pain Stated Complaint: CHEST PAIN Time Seen by Provider: 04/29/18 23:19 Mode of Arrival: Medic Information source: Patient Notes: 27-year-old female presented to ED for complaint of chest pain and withdrawn. She states she uses heroin and the last time she used heroin was yesterday. She states she also is withdrawing from her opiates because she takes multiple Percocets a day. She states she is having chest pain nausea and vomiting shaking. She did come in via EMS. Her lung sounds are clear respirations regular and unlabored. She is not actively vomiting at this time. I have greeted and performed a rapid initial assessment of this patient. A comprehensive ED assessment and evaluation of the patient, analysis of test results and completion of medical decision making process will be conducted by an additional ED providers. TRAVEL OUTSIDE OF THE [place] IN LAST 30 DAYS: No - Related Data Allergies/Adverse Reactions: cefaclor [From Ceclor] Allergy (Verified 02/10/18 11:41) naloxone Allergy (Verified 02/10/18 11:41) peanut Allergy (Verified 02/10/18 11:41) red dye [Red Dye] Allergy (Verified 02/10/18 11:41) Past Medical History Renal/ Medical History: Denies: Hx Peritoneal Dialysis Psychiatric Medical History: Reports: Hx Attention Deficit Hyperactivity Disorder Past Surgical History: Reports: Hx Adenoidectomy, Hx Appendectomy, Hx Oral Surgery - [place] Teeth, Hx Tonsillectomy - & adenoids - Immunizations Immunizations up to date: Yes Hx Diphtheria, Pertussis, Tetanus Vaccination: Yes - given today History of Influenza Vaccine for 03/2017 - 08/2017 Season: Refused Physical Exam - Vital signs Vitals: Temp Pulse Resp BP Pulse Ox 98.4 F 107 H 16 113/79 100 04/29/18 22:00 04/29/18 22:00 04/29/18 22:00 04/29/18 22:00 04/29/18 22:00 Course - Vital Signs Vital signs: Temp Pulse Resp BP Pulse Ox 98.4 F 107 H 16 113/79 100 04/29/18 22:00 04/29/18 22:00 04/29/18 22:00 04/29/18 22:00 04/29/18 22:00 - Laboratory Laboratory results interpreted by me: 04/29/18 22:09 Urine Blood LARGE H Urine Nitrite POSITIVE H Ur Leukocyte Esterase LARGE H
--- NOTE | 2018-04-30 07:39 | EKG REPORT ---
SEVERITY:- BORDERLINE ECG - SINUS RHYTHM BORDERLINE T ABNORMALITIES, ANTERIOR LEADS BORDERLINE PROLONGED QT INTERVAL : Confirmed by: Jw Wilson MD 30-Apr-2018 07:37:16
== END 2018-04-30 00:35 | disposition left against medical advice (07) ==
LOC: ER 21:54
DX: R07.9 Chest pain, unspecified (principal); Z88.3 Allergy status to other anti-infective agents; Z91.010 Allergy to peanuts
CPT/HCPCS: 81001; 93005; 93010; 99281

== ENCOUNTER 2018-10-18 03:21 | Inpatient (IN) | payer SELFPAY ==
[2018-10-18] MEDS ORDERED: NORMAL SALINE 1000 ML 1,000 ML IV ONE (03:45)
[2018-10-18] MEDS ORDERED: HYDROMORPHONE HCL INJ/PF 2 MG/ML AMPULE IM ONE (03:45)
[2018-10-18] MEDS ORDERED: VANCOMYCIN HCL INJ 1000 MG VIAL IV ONE (03:45)
[2018-10-18] MEDS ORDERED: CEFTRIAXONE INJ 1000 MG VIAL IV ONE (03:46)
[2018-10-18] MEDS ORDERED: ACETAMINOPHEN 325 MG TABLET PO ONE (03:47)
--- NOTE | 2018-10-18 03:51 | ER Document Report ---
ED General - General Chief Complaint: Abscess Stated Complaint: CYST ON NECK, FEVER Time Seen by Provider: 10/18/18 03:41 Notes: Patient is a pleasant 27-year-old female who unfortunately is addicted to opiates and is been using IV drugs. She is been injecting in her neck and says that she developed an abscess in the left side of her neck. She states she says she is pretty sure she broke off for the needle inside her neck as well. She sa ys she may have also broken off part of the needle in the right side of her neck as well. She started having fevers tonight. No vomiting. No diarrhea. She says that she is currently go through opiate withdrawal at this time as well. On her allergy list says that she is allergic to Ceclor however the patient says she had some reaction she has a child and she has had multiple antibiotics in the same family since then without any adverse reaction. TRAVEL OUTSIDE OF THE [place] IN LAST 30 DAYS: No - Related Data Allergies/Adverse Reactions: cefaclor [From Ceclor] Allergy (Verified 02/10/18 11:41) naloxone Allergy (Verified 02/10/18 11:41) peanut Allergy (Verified 02/10/18 11:41) red dye [Red Dye] Allergy (Verified 02/10/18 11:41) Past Medical History - Social History Smoking Status: Unknown if Ever Smoked Frequency of alcohol use: None Drug Abuse: Heroin Family History: Reviewed & Not Pertinent Renal/ Medical History: Denies: Hx Peritoneal Dialysis Psychiatric Medical History: Reports: Hx Attention Deficit Hyperactivity Disorder Past Surgical History: Reports: Hx Adenoidectomy, Hx Appendectomy, Hx Oral Surgery - [place] Teeth, Hx Tonsillectomy - & adenoids - Immunizations Immunizations up to date: Yes Hx Diphtheria, Pertussis, Tetanus Vaccination: Yes - given today Review of Systems - Review of Systems Notes: My Normal Review Basic REVIEW OF SYSTEMS: CONSTITUTIONAL : Fever EENT: Neck abscess RESPIRATORY: Denies cough, cold, or chest congestion. Denies shortness of breath, difficulty breathing, or wheezing. GASTROINTESTINAL: Denies abdominal pain. Denies nausea, vomiting, or diarrhea. MUSCULOSKELETAL: Denies neck or back pain or joint pain or swelling. SKIN: Denies rash or skin lesions. NEUROLOGICAL: Denies altered mental status or loss of consciousness. Denies headache. ALL OTHER SYSTEMS REVIEWED AND NEGATIVE. Physical Exam - Vital signs Vitals: Temp Pulse Resp BP Pulse Ox 100.7 F H 148 H 20 125/72 99 10/18/18 03:26 10/18/18 03:10/18/18 03:10/18/18 03:10/18/18 03:26 - Notes Notes: General Appearance: Well nourished, alert, cooperative, no acute distress, moderate obvious discomfort. Vitals: reviewed, See vital signs table. Head: no swelling or tenderness to the head Eyes: PERRL, EOMI, Conjuctiva clear Mouth: No decreasd moisture Throat: No tonsillar inflammation, No airway obstruction, No lymphadenopathy Neck: Patient has obvious superficial abscess in the left side of her neck. She does have track gonzalez on both sides of her neck from previous injection. Lungs: No wheezing, No rales, No rhonci, No accessory muscle use, good air exchange bilaterally. Heart: Tachycardic rate, Regular rythm, No murmur, no rub Abdomen: Normal BS, soft, No rigidity, No abdominal tenderness, No guarding, no rebound, no abdominal masses, no organomegaly Extremities: strength 5/5 in all extremities, good pulses in all extremities, will track gonzalez in left arm. No track gonzalez in the right arm. No spreading redness or swelling in the left arm. No signs of infection of the left arm. Skin: warm, dry, appropriate color, no rash Neuro: speech clear, oriented x 3, normal affect, responds appropriately to questions. Course - Re-evaluation Re-evalutation: 10/18/18 05:[address] Martini, ENT physician and discussed the patient's foreign bodies in the one associated near the abscess. I informed him I drained the abscess. He says they will see the patient in consult to determine to take her to the OR to remove foreign bodies to help prevent recurrent infection. I then spoke with Dr. Miguel, hospitalist, who agrees to see the patient for admission. Dictation of this chart was performed using voice recognition software; therefore, there may be some unintended grammatical errors. - Vital Signs Vital signs: Temp Pulse Resp BP Pulse Ox 100.7 F H 148 H 18 113/67 99 10/18/18 03:10/18/18 03:10/18/18 05:01 10/18/18 05:00 10/18/18 05:01 - Laboratory Result Diagrams: 10/18/18 04:33 10/18/18 04:33 Laboratory results interpreted by me: 10/18/18 04:33 Hgb 11.3 L Hct 33.1 L Seg Neutrophils % 88.9 H Lymphocytes % 8.3 L Monocytes % 2.6 L Procedures - Incision and Drainage Neck Type: Simple Anesthetic type: 1% Lidocaine w/epi mL's of anesthetic: 4 Blade size: 11 I&D procedure: Chlorprep applied Incision Method: Incision made by scalpel Amount/type of drainage: moderate amount of foul smelling purulent drainage. Notes: 10/18/18 05:44 iodioform packing applied to wound Discharge - Discharge Clinical Impression: Neck abscess, IV drug abuse Condition: Good Disposition: ADMITTED INPATIENT Admitting Provider: Myriam (Hospitalist) Unit Admitted: Medical Floor
[2018-10-18 04:50] LABS: ABSOLUTE LYMPHOCYTES (AUTO) 0.8 10^3/uL (0.5-4.7); ABSOLUTE MONOCYTES (AUTO) 0.2 10^3/uL (0.1-1.4); BASOPHILS % (AUTO) 0.1 % (0-2); EOSINOPHILS % (AUTO) 0.1 % (0-6); HEMATOCRIT 33.1 % (36.0-47.0); HEMOGLOBIN 11.3 g/dL (12.0-15.5); LYMPHOCYTES % (AUTO) 8.3 % (13-45); MEAN CORPUSCULAR HEMOGLOBIN 28.6 pg (27.0-33.4); MEAN CORPUSCULAR VOLUME 84 fl (80-97); MONOCYTES % (AUTO) 2.6 % (3-13); PLATELET COUNT 227 10^3/uL (150-450); RED BLOOD COUNT 3.95 10^6/uL (3.72-5.28); RED CELL DISTRIBUTION WIDTH 13.8 % (11.5-14.0); SEGMENTED NEUTROPHILS % (AUTO) 88.9 % (42-78); TOTAL CELLS COUNTED % (AUTO) 100 %
[2018-10-18] MEDS ORDERED: LIDOCAINE 2%/EPINEPHRINE INJ 20 ML VIAL INJ ONE (04:59)
[2018-10-18 05:04] LABS: ANION GAP 12 (5-19); BLOOD UREA NITROGEN 10 mg/dL (7-20); CALCIUM 9.2 mg/dL (8.4-10.2); CARBON DIOXIDE 26 mmol/L (22-30); CHLORIDE 100 mmol/L (98-107); GLUCOSE 107 mg/dL (75-110); POTASSIUM 4.1 mmol/L (3.6-5.0); SODIUM 138.2 mmol/L (137-145)
--- NOTE | 2018-10-18 05:09 | RADIOLOGY REPORT (SQ) ---
EXAM DESCRIPTION: CT NECK CHEST WITH IV CONTRAST COMPLETED DATE/TME: 10/18/2018 03:44 CLINICAL HISTORY: 27 years, Female, abscess neck with possible retained needle COMPARISON: None. TECHNIQUE: 262 Images stored on PACS. All CT scanners at this facility use dose modulation, iterative reconstruction, and/or weight based dosing when appropriate to reduce radiation dose to as low as reasonably achievable (ALARA). [facility]: Dose Right [facility]: CareDose [facility]: Dose Right [facility]: Teradose 4D [facility]: [employer] LIMITATIONS: None. FINDINGS: Limited evaluation of brain parenchyma is unremarkable. The globes are intact. Paranasal sinuses and mastoid air cells are unremarkable. The airway is widely patent. The submandibular and parotid glands are unremarkable. However, there is a complex fluid collection worrisome for abscess inseparable from the lateral margin of the left sternocleidomastoid musculature. This measures approximately 4.4 cm craniocaudad by 2.3 cm transverse by 3.1 cm AP. Along the inferior margin of the abscess is a linear radiopaque foreign body, measuring 4.4 mm. There are multiple adjacent, likely reactive cervical chain lymph nodes. There is also a linear radiopaque foreign body in the superficial soft tissues of the right supraclavicular region measuring 3.8 mm. Given history this likely reflects small needle fragments. The visualized lung apices are unremarkable. Thyroid gland enhances normally. IMPRESSION: Abscess of the superficial left neck region, inseparable from the left sternocleidomastoid musculature. There is linear radiopaque foreign body/needle fragment along the inferior aspect of the abscess. There is also a superficial needle fragment associated with the right supraclavicular neck, as above. TECHNICAL DOCUMENTATION: Quality ID # [id number]: Final reports with documentation of one or more dose reduction techniques (e.g., Automated exposure control, adjustment of the mA and/or kV according to patient size, use of iterative reconstruction technique) copyright 2011 [employer]- All Rights Reserved
--- NOTE | 2018-10-18 06:51 | PDOC H&P ---
History of Present Illness Admission Date/PCP: 10/18/18 05:44 No PCP Patient complains of: Fever History of Present Illness: EMMA BRUSH is a 27 year old female who presented to the emergency room with a an acute history of fever. She admits to IV drug use and has been injecting in her left neck and has noted redness and swelling in the area worsening over the last 2 weeks. She further admits developing a fever on the evening prior to admission. She further confesses that she broke her injection needle inside her neck 2 weeks ago while giving herself an IV drug injection, she also broke a needle on the right side on the same day. 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 She has not identified any other aggravating or ameliorating factors for her fever. In the emergency room she was found to have a left cervical abscess with a metallic foreign body (hypodermic needle fragment) present in the base of the abscess. The abscess was drained and ENT was contacted by the emergency room physician. The ear nose and throat physician stated that he would see the patient later today and plan to take her to surgery to remove the needle fragments from her tissues in order to prevent recurrent abscesses. Patient was subsequently admitted to the hospital for further evaluation and treatment. 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 Denies: Coronary Artery Disease, Myocardial Infarction, Hypertension Pulmonary Medical History: Denies: Asthma, Chronic Obstructive Pulmonary Disease (COPD) EENT Medical History: Denies: Cataracts, Eyes - Prescription lenses, Ears - Hearing aids Neurological Medical History: Denies: Hemorrhagic CVA, Ischemic CVA, Seizures Endocrine Medical History: Denies: Diabetes Mellitus Type 1, Diabetes Mellitus Type 2 Renal/ Medical History: Denies: Chronic Kidney Disease, Nephrolithiasis Malignancy Medical History: Reports: None GI Medical History: Denies: Cirrhosis, Hepatitis Musculoskeltal Medical History: Denies: Arthritis, Fibromyalgia Skin Medical History: Denies: Eczema, Psoriasis Psychiatric Medical History: Reports: Attention Deficit Hyperactivity Disorder, Substance Abuse, Tobacco Dependency Denies: Alcohol Dependency Traumatic Medical History: Reports: None Hematology: Denies: Anemia, Bleeding Tendencies Infectious Medical History: Reports: None Past Surgical History Past Surgical History: Reports: Adenoidectomy, Appendectomy, Tonsillectomy Social History Information Source: Patient Lives with: Alone Smoking Status: Current Every Day Smoker Frequency of Alcohol Use: Occasional Hx Recreational Drug Use: Yes Drugs: Cocaine, Heroin, Marijuana Hx Prescription Drug Abuse: No - Advance Directive Resuscitation Status: Full Code Surrogate healthcare decision maker:: Medical decision surrogate: Kylie Freeman her mother Family History Family History: Other - Heart problems Parental Family History Reviewed: Yes Children Family History Reviewed: No Sibling(s) Family History Reviewed.: Yes Medication/Allergy Home Medications: No Home Medications 02/12/18 Allergies/Adverse Reactions: cefaclor [From Ceclor] Allergy (Verified 02/10/18 11:41) naloxone Allergy (Verified 02/10/18 11:41) peanut Allergy (Verified 02/10/18 11:41) red dye [Red Dye] Allergy (Verified 02/10/18 11:41) Review of Systems Constitutional: PRESENT: as per HPI, chills, fever(s) Eyes: ABSENT: visual disturbances, other - Ocular pain Ears: ABSENT: hearing changes, other - Ear pain Nose, Mouth, and Throat: ABSENT: mouth pain, sore throat Cardiovascular: ABSENT: chest pain, dyspnea on exertion, edema, orthropnea, palpitations Respiratory: ABSENT: cough, dyspnea Gastrointestinal: PRESENT: abdominal pain - Early narcotic withdrawal symptoms, nausea - Early narcotic withdrawal symptoms. ABSENT: constipation, diarrhea, vomiting Genitourinary: ABSENT: dysuria, hematuria Musculoskeletal: ABSENT: back pain, joint swelling, muscle weakness Integumentary: PRESENT: erythema - With swelling of the left neck. ABSENT: pruritus, rash Neurological: ABSENT: confusion, convulsions, focal weakness, memory loss, syncope Psychiatric: ABSENT: anxiety, depression Endocrine: ABSENT: cold intolerance, heat intolerance Hematologic/Lymphatic: ABSENT: easy bleeding, easy bruising Physical Exam Vital Signs: Temp Pulse Resp BP Pulse Ox 98.7 F 148 H 18 113/67 98 10/18/18 06:07 10/18/18 03:26 10/18/18 06:00 10/18/18 05:00 10/18/18 06:00 Intake & Output 10/16/18 10/17/18 10/18/18 23:59 23:59 23:59 Intake Total 1000 Balance 1000 Weight 56.6 kg General appearance: PRESENT: cooperative, mild distress - Early narcotic withdrawal anxiety and restlessness noted Head exam: PRESENT: atraumatic, normocephalic Eye exam: ABSENT: conjunctival injection, nystagmus, scleral icterus Ear exam: PRESENT: normal external ear exam. ABSENT: bleeding, drainage Mouth exam: PRESENT: dry mucosa, neck supple Neck exam: ABSENT: JVD, thyromegaly, tracheal deviation Respiratory exam: PRESENT: clear to auscultation soo, symmetrical, unlabored Cardiovascular exam: PRESENT: RRR, tachycardia. ABSENT: clicks, gallop, rubs Pulses: PRESENT: normal radial pulses, normal dorsalis pedis pul Vascular exam: PRESENT: normal capillary refill. ABSENT: pallor GI/Abdominal exam: PRESENT: normal bowel sounds, soft Rectal exam: PRESENT: deferred Extremities exam: ABSENT: joint swelling, pedal edema Musculoskeletal exam: PRESENT: full ROM, normal inspection Neurological exam: PRESENT: alert, oriented to person, oriented to place, oriented to time, oriented to situation, CN II-XII grossly intact, motor sensory deficit Psychiatric exam: PRESENT: anxious, other - Restless mood Skin exam: PRESENT: dry, erythema - With edema of the left neck, fresh incision and drainage site noted, local tenderness to palpation is noted., warm. ABSENT: jaundice, rash, urticaria Results Laboratory Results: 10/18/18 04:33 10/18/18 04:33 10/18/18 10/18/18 10/18/18 04:33 04:33 04:33 WBC 9.0 RBC 3.95 Hgb 11.3 L Hct 33.1 L MCV 84 MCH 28.6 MCHC 34.0 RDW 13.8 Plt Count 227 Seg Neutrophils % 88.9 H Lymphocytes % 8.3 L Monocytes % 2.6 L Eosinophils % 0.1 Basophils % 0.1 Absolute Neutrophils 8.0 Absolute Lymphocytes 0.8 Absolute Monocytes 0.2 Absolute Eosinophils 0.0 Absolute Basophils 0.0 Sodium 138.2 Potassium 4.1 Chloride 100 Carbon Dioxide 26 Anion Gap 12 BUN 10 Creatinine 0.69 Est GFR ( Amer) > 60 Est GFR (Non-Af Amer) > 60 Glucose 107 Calcium 9.2 Serum HCG, Qual NEGATIVE Impressions: Soft Tissue Neck CT 10/18/18 03:44 IMPRESSION: Abscess of the superficial left neck region, inseparable from the left sternocleidomastoid musculature. There is linear radiopaque foreign body/needle fragment along the inferior aspect of the abscess. There is also a superficial needle fragment associated with the right supraclavicular neck, as above. TECHNICAL DOCUMENTATION: Quality ID # 436: Final reports with documentation of one or more dose reduction techniques (e.g., Automated exposure control, adjustment of the mA and/or kV according to patient size, use of iterative reconstruction technique) copyright 2011 [employer]- All Rights Reserved Assessment and Plan - Diagnosis (1) Cellulitis and abscess of neck Is this a current diagnosis for this admission?: Yes Plan: Patient's cellulitis and abscess will be treated with IV vancomycin and IV Zosyn initially. And he is consulting and will remove the foreign bodies from the patient's tissues to help prevent recurrent abscesses. Daily CBC determinations will aid in determining the efficacy and guiding the course of therapy. Wound culture and blood cultures are pending. (2) Foreign body of neck with infection Qualifiers: Encounter type: initial encounter Qualified Code(s): S10.95XA - Superficial foreign body of unspecified part of neck, initial encounter; L08.9 - Local infection of the skin and subcutaneous tissue, unspecified Is this a current diagnosis for this admission?: Yes Plan: ENT consult will evaluate the patient for removal of the metallic foreign bodies in the neck soft tissues. (3) Fever Qualifiers: Fever type: unspecified Qualified Code(s): R50.9 - Fever, unspecified Is this a current diagnosis for this admission?: Yes Plan: Patient's fever will be treated with acetaminophen administered orally or rectally and/or oral ibuprofen. (4) Acute narcotic withdrawal Is this a current diagnosis for this admission?: Yes Plan: Patient's withdrawal symptoms will be controlled with Valium 10 mg IV every hour as needed severe withdrawal symptoms, Thorazine 25 mg IV every 8 hours as needed hallucinations/severe tremors/psychotic behavior and the patient will be treating her pain with morphine sulfate 3-7.5 mg IV every 2 hours as needed for pain on a sliding scale basis which should also help to curb her withdrawal symptoms. (5) Polysubstance abuse Is this a current diagnosis for this admission?: Yes Plan: Patient is counseled for discontinuation of polysubstance abuse. At present time she offers no interest in discontinuation of her current habits. (6) POTS (postural orthostatic tachycardia syndrome) Is this a current diagnosis for this admission?: Yes Plan: Patient is not currently taking any medications for this problem. Should she develop any symptoms of postural orthostatic tachycardia she will be treated with an appropriate beta-francisco such as metoprolol or Tenormin. - Time Time Spent with patient: 25-34 minutes Smoking Cessation Education: 3 to 10 minutes - Smoking cessation is advised and counseled briefly (3 to 5 minutes). A nicotine patch will be made available for the patient during her hospital course to ease withdrawal symptoms. Medications reviewed and adjusted accordingly: Yes Anticipated discharge: Home - Inpatient Certification Based on my medical assessment, after consideration of the patient's comorbidities, presenting symptoms, or acuity I expect that the services needed warrant INPATIENT care.: Yes I certify that my determination is in accordance with my understanding of Medicare's requirements for reasonable and necessary INPATIENT services [42 CFR 412.3e].: Yes Medical Necessity: Need Close Monitoring Due to Risk of Patient Decompensation, Need For IV Fluids, Need for Pain Control, Need for IV Antibiotics, Need for Surgery, Risk of Complication if Not Cared For in Hospital
[2018-10-18] MEDS ORDERED: MAG HYDROX/AL HYDROX/SIMETH SUSP 30 ML UDCUP PO PRN (07:01)
[2018-10-18] MEDS ORDERED: GLUCAGON,HUMAN RECOMB 1 MG INJ SUBCUT PRN (07:01)
[2018-10-18] MEDS ORDERED: TEMAZEPAM 15 MG CAPSULE PO PRN (07:01)
[2018-10-18] MEDS ORDERED: DEXTROSE 40% GEL 15 GM TUBE PO PRN ×2 (07:01)
[2018-10-18] MEDS ORDERED: MAGNESIUM HYDROXIDE SUSP 30 ML UDCUP PO PRN (07:01)
[2018-10-18] MEDS ORDERED: DEXTROSE 50%-WATER 25 GM/50 ML DISP.SYRIN IV PRN ×2 (07:01)
[2018-10-18] MEDS ORDERED: ONDANSETRON HCL INJ/PF 4 MG/2 ML SDV IV PRN (07:01)
[2018-10-18] MEDS ORDERED: ACETAMINOPHEN 650 MG SUPP.RECT PR PRN (07:05)
[2018-10-18] MEDS ORDERED: MORPHINE SULFATE 10 MG/ML INJ IV PRN ×2 (07:05→07:18)
[2018-10-18] MEDS ORDERED: NICOTINE 21 MG/24 HR PATCH.TD24 TD PRN (07:05)
[2018-10-18] MEDS ORDERED: PIPERACILLIN/TAZOBACTAM 3.375 GM VIAL IV ONE (07:07)
[2018-10-18] MEDS ORDERED: DIAZEPAM INJ 10 MG/2 ML DISP.SYRIN IV PRN (07:08)
[2018-10-18] MEDS ORDERED: VANCOMYCIN HCL INJ 1000 MG VIAL IV SCH (07:15)
[2018-10-18] MEDS ORDERED: PIPERACILLIN SODIUM/TAZOBACTAM 3.375 GM in NORMAL SALINE 100 ML IV ONE ×2 (07:30→09:30)
[2018-10-18] MEDS: RINGERS SOLUTION,LACTATED 1,000 ML IV PRN ×2 (08:20→17:22)
[2018-10-18] MEDS: MORPHINE SULFATE 10 MG/ML INJ IV PRN ×5 (08:21→23:07)
[2018-10-18] MEDS ORDERED: VANCOMYCIN HCL 1,000 MG in DEXTROSE 5%-WATER 250 ML IV SCH (10:00)
[2018-10-18] MEDS: PANTOPRAZOLE SODIUM 40 MG VIAL IV SCH ×2 (10:31→22:48)
[2018-10-18] MEDS: DOCUSATE SODIUM 100 MG CAPSULE PO SCH ×2 (10:35→17:23)
[2018-10-18] MEDS: HEPARIN SOD (PORCINE) 5,000 UNIT/ML 1 ML SYRINGE SUBCUT SCH ×2 (13:38→21:45)
--- NOTE | 2018-10-18 14:29 | Progress Note ---
Provider Note Provider Note: Patient in stable condition this morning. Vital signs stable. On empiric antibiotic coverage. Currently awaiting ENT consultation for I&D of the abscess and removal of the broken needle tip at the base of the abscess in the left side of her neck. She admits to sharing needles with other people. I am going to [facility] to see if she has been tested for HIV and hepatitis, and if has has not been done in this facility, I will order those screening panels.
[2018-10-18] MEDS: VANCOMYCIN HCL 1,000 MG in DEXTROSE 5%-WATER 250 ML IV SCH (17:21)
[2018-10-18] MEDS: PIPERACILLIN SODIUM/TAZOBACTAM 3.375 GM in NORMAL SALINE 100 ML IV SCH (17:21)
--- NOTE | 2018-10-18 20:03 | RADIOLOGY REPORT (SQ) ---
EXAM DESCRIPTION: CHEST SINGLE VIEW COMPLETED DATE/TIME: 10/18/2018 6:52 pm REASON FOR STUDY: cardiac clearance- hx of endocarditis COMPARISON: 02/11/2018 TECHNIQUE: Single frontal radiographic view of the chest acquired. NUMBER OF VIEWS: One view. LIMITATIONS: None. FINDINGS: LUNGS AND PLEURA: No pneumothorax. No consolidation or pleural effusion. Minimal areas of basilar scarring. MEDIASTINUM AND HILAR STRUCTURES: Stable. HEART AND VASCULAR STRUCTURES: Stable. BONES: No acute findings. HARDWARE: None in the chest. OTHER: No other significant finding. IMPRESSION: NO ACUTE FINDINGS. TECHNICAL DOCUMENTATION: JOB ID: [id number] [place]-72 2010 [employer]- All Rights Reserved Reading location - IP/workstation name: [email or web address]
--- NOTE | 2018-10-18 20:55 | XCELERA REPORT ---
[address] [address] Transthoracic Echocardiogram Report Name: EMMA BRUSH Age: 27 yrs Gender: Female : 1990 Patient Status: Inpatient Patient Location: [address] [place], [place] [address] Study Date: 10/18/2018 07:32 PM Height: 60 in Weight: 123 lb BSA: 1.5 m2 Procedure: A two-dimensional transthoracic echocardiogram with color flow and Doppler was performed. Images were not obtained from all of the standard acoustic windows due to the limited scope of the study. Reason For Study: IVDA / MURMUR / Pre-Op History: IVDA / MURMUR / Pre-Op. Ordering Physician: SILVINO GOMEZ Performed By: Nick Meléndez Interpretation Summary The left ventricle is normal in size. There is normal left ventricular wall thickness. No True apical 2 chamber views obtained.Hence cannot comment on the apical anterior , the basal anterior, the basal inferior and apical inferior rodriguez.The mid anterior , the mid inferior and the rest of the LV rodriguez contract normally. . LVEF is normal and is greater than 65% in the limited views. Doppler measurements suggest normal left ventricular diastolic function There is no thrombus. Probably no ASD,VSD,or PFO. The right ventricle is normal in size and function. The right atrium is normal. The left atrial size is normal. There is no evidence of mitral valve prolapse. There is no vegetation seen on the mitral valve. There is no mitral valve stenosis. There is no mitral regurgitation noted. There is no aortic valvular vegetation. There is no aortic valve stenosis There is no LVOT obstruction. No aortic regurgitation is present. There is no tricuspid valve vegetation. There is no tricuspid stenosis. There is a trace amount of tricuspid regurgitation Unable to calculate RVSP due to lack of TR jet. There is no vegetation on the pulmonic valve. There is no pulmonic valvular stenosis. There is no pulmonic valvular regurgitation. The aortic root is normal size. There is no pericardial effusion. MMode/2D Measurements & Calculations RVDd: 2.9 cm LVIDd: 4.9 cm FS: 39.5 % Ao root diam: 3.3 cm IVSd: 0.67 cm LVIDs: 3.0 cm EDV(Teich): 114.7 ml Ao root area: 8.4 cm2 LVPWd: 0.67 cm ESV(Teich): 34.5 ml LA dimension: 2.7 cm EF(Teich): 69.9 % LVOT diam: 2.2 cm LVOT area: 3.7 cm2 Doppler Measurements & Calculations MV E max haile: MV P1/2t max haile: Ao V2 max: LV V1 max P.1 cm/sec 102.5 cm/sec 118.1 cm/sec 3.5 mmHg MV A max haile: MV P1/2t: 58.7 msec Ao max P.6 mmHg LV V1 max: 56.3 cm/sec MVA(P1/2t): 3.7 cm2 SALOME(V,D): 2.9 cm2 93.3 cm/sec MV E/A: 1.4 MV dec slope: 511.4 cm/sec2 MV dec time: 0.23 sec PA V2 max: TR max haile: MV P1/2t-pr_phl: 93.8 cm/sec 229.3 cm/sec 58.7 msec PA max PG: TR max P.0 mmHg 3.5 mmHg Left Ventricle The left ventricle is normal in size. There is normal left ventricular wall thickness. No True apical 2 chamber views obtained.Hence cannot comment on the apical anterior , the basal anterior, the basal inferior and apical inferior rodriguez.The mid anterior , the mid inferior and the rest of the LV rdoriguez contract normally. . LVEF is normal and is greater than 65% in the limited views. Doppler measurements suggest normal left ventricular diastolic function. There is no thrombus. Probably no ASD,VSD,or PFO. Right Ventricle The right ventricle is normal in size and function. Atria The right atrium is normal. The left atrial size is normal. Mitral Valve There is no evidence of mitral valve prolapse. There is no vegetation seen on the mitral valve. There is no mitral valve stenosis. There is no mitral regurgitation noted. Aortic Valve There is no aortic valvular vegetation. There is no aortic valve stenosis. There is no LVOT obstruction. No aortic regurgitation is present. Tricuspid Valve There is no tricuspid valve vegetation. There is no tricuspid stenosis. There is a trace amount of tricuspid regurgitation. Unable to calculate RVSP due to lack of TR jet. Pulmonic Valve There is no vegetation on the pulmonic valve. There is no pulmonic valvular stenosis. There is no pulmonic valvular regurgitation. Great Vessels The aortic root is normal size. Effusions There is no pericardial effusion. : SILVINO GOMEZ Lakshmi
--- NOTE | 2018-10-18 22:07 | EKG REPORT ---
SEVERITY:- BORDERLINE ECG - SINUS RHYTHM BORDERLINE PROLONGED QT INTERVAL : Confirmed by: Jw Wilson MD 18-Oct-2018 22:07:04
[2018-10-19] MEDS: MORPHINE SULFATE 10 MG/ML INJ IV PRN ×9 (01:19→23:51)
[2018-10-19] MEDS: PIPERACILLIN SODIUM/TAZOBACTAM 3.375 GM in NORMAL SALINE 100 ML IV SCH ×5 (01:20→23:45)
[2018-10-19] MEDS: HEPARIN SOD (PORCINE) 5,000 UNIT/ML 1 ML SYRINGE SUBCUT SCH ×3 (05:08→21:12)
[2018-10-19] MEDS: VANCOMYCIN HCL 1,000 MG in DEXTROSE 5%-WATER 250 ML IV SCH ×2 (05:21→18:32)
[2018-10-19 05:30] LABS: ABSOLUTE EOSINOPHILS # (AUTO) 0.2 10^3/uL (0.0-0.6); ABSOLUTE LYMPHOCYTES (AUTO) 2.3 10^3/uL (0.5-4.7); ABSOLUTE MONOCYTES (AUTO) 0.7 10^3/uL (0.1-1.4); ABSOLUTE NEUT (AUTO) 3.1 10^3/uL (1.7-8.2); BASOPHILS % (AUTO) 0.4 % (0-2); EOSINOPHILS % (AUTO) 2.7 % (0-6); HEMATOCRIT 33.1 % (36.0-47.0); LYMPHOCYTES % (AUTO) 36.8 % (13-45); MEAN CORPUSCULAR HEMOGLOBIN 28.2 pg (27.0-33.4); MEAN CORPUSCULAR HGB CONC 33.1 g/dL (32.0-36.0); MEAN CORPUSCULAR VOLUME 85 fl (80-97); MONOCYTES % (AUTO) 11.1 % (3-13); PLATELET COUNT 199 10^3/uL (150-450); RED BLOOD COUNT 3.88 10^6/uL (3.72-5.28); TOTAL CELLS COUNTED % (AUTO) 100 %; WHITE BLOOD COUNT 6.3 10^3/uL (4.0-10.5)
[2018-10-19 06:03] LABS: ANION GAP 8 (5-19); BLOOD UREA NITROGEN 8 mg/dL (7-20); CALCIUM 8.8 mg/dL (8.4-10.2); CARBON DIOXIDE 25 mmol/L (22-30); CHLORIDE 110 mmol/L (98-107); GLUCOSE 97 mg/dL (75-110); POTASSIUM 4.4 mmol/L (3.6-5.0); SODIUM 143.4 mmol/L (137-145)
[2018-10-19] MEDS: DOCUSATE SODIUM 100 MG CAPSULE PO SCH ×2 (09:38→18:34)
[2018-10-19] MEDS: PANTOPRAZOLE SODIUM 40 MG VIAL IV SCH ×2 (09:38→21:16)
--- NOTE | 2018-10-19 15:54 | PDOC PROGRESS REPORT ---
Subjective Progress Note for:: 10/19/18 Subjective:: No adverse events overnight. Vital signs remained stable and she remains afebrile. No chills. No chest pain or shortness of breath. Eating and drinking without difficulty. She is able to ambulate in the room independently. Reason For Visit: CELLULITIS WITH ABSCESS LEFT NECK,FOREIGN BODY Physical Exam Vital Signs: Temp Pulse Resp BP Pulse Ox 98.4 F 60 14 105/59 L 100 10/19/18 11:00 10/19/18 11:00 10/19/18 11:00 10/19/18 11:00 10/19/18 11:00 Intake & Output 10/18/18 10/19/18 10/20/18 06:59 06:59 06:59 Intake Total 1000 3116 350 Balance 1000 3116 350 Weight 56.1 kg 56.1 kg General appearance: PRESENT: no acute distress, cooperative, disheveled Neck exam: PRESENT: other - She has a large protrusion on the left side of her neck corresponding to the abscess seen on CT Respiratory exam: PRESENT: clear to auscultation soo, symmetrical, unlabored. ABSENT: accessory muscle use, crackles, prolonged expiratory phas, rhonchi, tachypnea, wheezes Cardiovascular exam: PRESENT: RRR, +S1, +S2. ABSENT: diastolic murmur, systolic murmur Vascular exam: PRESENT: normal capillary refill GI/Abdominal exam: PRESENT: normal bowel sounds, soft. ABSENT: distended, guarding, rebound, tenderness Extremities exam: ABSENT: clubbing, pedal edema Musculoskeletal exam: PRESENT: normal inspection. ABSENT: deformity Neurological exam: PRESENT: alert, awake, oriented to person, oriented to place, oriented to time, oriented to situation Psychiatric exam: PRESENT: appropriate affect, normal mood Skin exam: PRESENT: dry, warm Results Laboratory Results: 10/19/18 05:10 10/19/18 05:10 10/19/18 10/19/18 05:10 05:10 WBC 6.3 RBC 3.88 Hgb 11.0 L Hct 33.1 L MCV 85 MCH 28.2 MCHC 33.1 RDW 14.0 Plt Count 199 Seg Neutrophils % 49.0 Lymphocytes % 36.8 Monocytes % 11.1 Eosinophils % 2.7 Basophils % 0.4 Absolute Neutrophils 3.1 Absolute Lymphocytes 2.3 Absolute Monocytes 0.7 Absolute Eosinophils 0.2 Absolute Basophils 0.0 Sodium 143.4 Potassium 4.4 Chloride 110 H Carbon Dioxide 25 Anion Gap 8 BUN 8 Creatinine 0.58 Est GFR ( Amer) > 60 Est GFR (Non-Af Amer) > 60 Glucose 97 Calcium 8.8 Magnesium 2.2 Impressions: Chest X-Ray 10/18/18 00:00 IMPRESSION: NO ACUTE FINDINGS. Soft Tissue Neck CT 10/18/18 03:44 IMPRESSION: Abscess of the superficial left neck region, inseparable from the left sternocleidomastoid musculature. There is linear radiopaque foreign body/needle fragment along the inferior aspect of the abscess. There is also a superficial needle fragment associated with the right supraclavicular neck, as above. TECHNICAL DOCUMENTATION: Quality ID # 436: Final reports with documentation of one or more dose reduction techniques (e.g., Automated exposure control, adjustment of the mA and/or kV according to patient size, use of iterative reconstruction technique) copyright 2011 [employer]- All Rights Reserved Assessment and Plan - Diagnosis (1) Cellulitis and abscess of neck Is this a current diagnosis for this admission?: Yes Plan: Currently on broad-spectrum antibiotics. Blood cultures turn positive, further identification is pending. I&D is planned, but a cardiac evaluation is pending to evaluate for endocarditis. (2) Foreign body of neck with infection Qualifiers: Encounter type: initial encounter Qualified Code(s): S10.95XA - Superficial foreign body of unspecified part of neck, initial encounter; L08.9 - Local infection of the skin and subcutaneous tissue, unspecified Is this a current diagnosis for this admission?: Yes Plan: She has one on each side of her neck, and these will be surgically removed when she has I&D (3) IV drug abuse Is this a current diagnosis for this admission?: Yes Plan: Being monitored for signs of withdrawal, being evaluated for endocarditis because of the abscess and the positive blood cultures. - Time Time Spent with patient: 15-24 minutes
--- NOTE | 2018-10-19 16:39 | HISTORY AND PHYSICAL E ---
[facility] Inpatient ENT Consult/History and Physical NAME: EMMA BRUSH : 1990 AGE: 27Y ADMITTED: 10/18/2018 ROOM: 403 [facility] INPATIENT ENT CONSULT/HISTORY AND PHYSICAL EXAMINATION DATE OF CONSULTATION: Thursday, October 18, 2018 CHIEF COMPLAINT: Left neck abscess with broken hypodermic needles in the left and right neck. HISTORY OF PRESENT ILLNESS: This is a 27-year-old white female who presented to the [facility] ER with an acute 1-week history of fevers and chills. The patient is an IV drug user, who has been injecting polysubstances into her left and right neck. She noted redness and swelling over the past week at her left neck. In the ER setting, she underwent examination with CT neck imaging with contrast with a large left neck abscess identified and a left and right base of neck foreign bodies that appeared metallic in nature, which are consistent with 2 broken hypodermic injection needles that the patient is aware of. In the ER setting, the physician attempted an I&D of the left neck abscess, with significant purulence released and a dressing applied. ENT was consulted for definitive management of these neck processes. The [facility] Hospitalist service admitted the patient for inpatient management to include IV antibiotics and steroids. Cultures are currently pending to help guide antibiotic therapy. The patient also denied a history of hepatitis or HIV and states that she was tested approximately 6 months ago. PAST MEDICAL HISTORY: JOHNNA and cardiac history with the patient reporting a history of congestive heart failure, secondary to bacterial endocarditis due to IV drug abuse, and she was hospitalized 6 months ago at [facility] in [place] for management. The patient also has POTS syndrome and history of bacterial endocarditis related to IV drug abuse PAST SURGICAL HISTORY: Tonsillectomy, adenoidectomy and appendectomy. ALLERGIES: 1. CECLOR ALLERGY. 2. NALOXONE ALLERGY. 3. PEANUT ALLERGY. 4. RED DYE ALLERGY. HEMATOLOGY: The patient denies any bleeding or blood clotting disorders. SOCIAL HISTORY: The patient is a daily smoker and admits to polysubstance use, such as cocaine, heroin and marijuana. FAMILY HISTORY: The patient lives by herself/with friends. MEDICATIONS: There are no home medications used. REVIEW OF SYSTEMS: CONSTITUTIONAL: Reviewed with the patient with recent fever and chills. HEENT: Reviewed with the patient, JOHNNA/Patient is with current left neck abscess, otherwise unremarkable. CARDIOVASCULAR: Reviewed with the patient, JOHNNA/Same as above, which was reviewed with the patient, otherwise unremarkable. RESPIRATORY: Reviewed with the patient and unremarkable. GASTROINTESTINAL: Reviewed with the patient and unremarkable. GENITOURINARY: Reviewed with the patient and unremarkable. MUSCULOSKELETAL: Reviewed with the patient and unremarkable. SKIN/DERMATOLOGIC: Reviewed with the patient and unremarkable. NEUROLOGICAL: Reviewed with the patient and unremarkable. MENTAL HEALTH: Reviewed with the patient and unremarkable. ENDOCRINE: Reviewed with the patient and unremarkable. HEMATOLOGIC/LYMPHATIC: Reviewed with the patient and unremarkable. ALLERGY/IMMUNOLOGIC: Reviewed with the patient and unremarkable. PHYSICAL EXAMINATION: VITAL SIGNS: Temperature 98.7 Fahrenheit, pulse 148, respirations 18, blood pressure 113/67, pulse ox 98% on room air. GENERAL APPEARANCE: The patient was noted to be lying in her hospital bed comfortably and was noted to be alert and oriented and talking without difficulty. The patient was in hospital room 414. HEAD: NCAT/Normocephalic, atraumatic. EYES: Extraocular muscles intact and the conjunctivae are unremarkable in appearance. EARS: External auditory canals were with cerumen and there was limited viewing of the tympanic membranes. NOSE: With nasal septal deviation and turbinate hypertrophy and moist mucous membranes. MOUTH: With moist mucous membranes. The tongue is in the midline and mobile, and post tonsillectomy changes are noted, with soft palate tissues being redundant in nature. NECK: With left neck fullness, erythema. The I&D site is noted under the dressing, which had been removed for examination, and the left neck is very tender to palpation. There was no active purulence noted to be draining, and the site did not appear to be bleeding. The right neck is also with the appearance of numerous needle injections changes and a right base of neck firm/rigid foreign body noted, which is tender to palpation and consistent with a broken hypodermic needle, as she has on the left. CARDIOVASCULAR: Had been noted to be regular rate and rhythm, without murmur. RESPIRATORY: Had been noted to be clear to auscultation bilateral, with even rise and fall of the chest. MUSCULOSKELETAL: Temporomandibular joints were nontender to palpation and the patient is moving all extremities without difficulty. NEUROLOGICAL: Cranial nerves 2 through 12 were grossly intact and the patient was alert and oriented X 4. SKIN: Noted to be dry and warm and the left neck changes as noted above. LABORATORY DATA: WBC 9, H&H 11.3 and 33.1, platelets 227,000. RADIOLOGY: Soft tissue CT neck with contrast: Impression: Abscess of the left neck, superficial region, inseparable from the left SCM musculature. There is a linear radiopaque foreign body/needle fragment along the inferior aspect of the left abscess. There is also a superficial needle fragment associated with the right base of neck/supraclavicular area. ASSESSMENT AND PLAN: 1. Abscess and cellulitis of the left neck. This case has been discussed in detail with the ER physician and admitting hospitalist. The patient has been started on IV vancomycin and Zosyn. Recommendation and plan is for definitive management in the main operating room with bilateral neck explorations with removal of the bilateral foreign bodies/needle fragments and management of abscesses, which the patient voiced an understanding of and agreed with. The risks and complications of the surgical procedures were discussed in detail with the patient, which she voiced an understanding of, agreed with, and consent was obtained. There are also wound cultures and blood cultures that are currently pending that will aid to further guide antibiotic therapy. 2. Foreign bodies of the neck with infection. Please see the above management plan in #1. 3. History of bacterial endocarditis and congestive heart failure with hospitalization 6 months ago at [facility] in [place]. This was discussed in detail with the Anesthesia staff, Dr. Moran, with recommendation and plan for cardiology evaluation and echo prior to management in the main operating room setting. 4. Fevers. Please see the above management plan. 5. Acute narcotic withdrawal. Please see the management plan as detailed by the hospitalist. 6. Polysubstance abuse. Please see the hospitalist's management plan for details. 7. POTS (Postural orthostatic tachycardia syndrome). Please see the hospitalist's plan for details. DICTATING PHYSICIAN: FLORENCIO GREENE D.O. [id number] PHY#: [id number] ID: [id number] JOB#: [id number] ACCT: [id number] cc:ELOISE BROWN M.D. > MTDD
[2018-10-20] MEDS: MORPHINE SULFATE 10 MG/ML INJ IV PRN ×6 (03:23→21:48)
[2018-10-20] MEDS: HEPARIN SOD (PORCINE) 5,000 UNIT/ML 1 ML SYRINGE SUBCUT SCH ×3 (05:16→21:49)
[2018-10-20] MEDS: PIPERACILLIN SODIUM/TAZOBACTAM 3.375 GM in NORMAL SALINE 100 ML IV SCH ×4 (05:30→23:17)
[2018-10-20] MEDS: VANCOMYCIN HCL 1,000 MG in DEXTROSE 5%-WATER 250 ML IV SCH ×2 (05:30→17:31)
[2018-10-20 05:55] LABS: HEMATOCRIT 33.3 % (36.0-47.0); HEMOGLOBIN 11.2 g/dL (12.0-15.5); MEAN CORPUSCULAR HEMOGLOBIN 28.2 pg (27.0-33.4); MEAN CORPUSCULAR HGB CONC 33.5 g/dL (32.0-36.0); MEAN CORPUSCULAR VOLUME 84 fl (80-97); PLATELET COUNT 243 10^3/uL (150-450); RED BLOOD COUNT 3.96 10^6/uL (3.72-5.28); RED CELL DISTRIBUTION WIDTH 13.8 % (11.5-14.0); WHITE BLOOD COUNT 6.1 10^3/uL (4.0-10.5)
[2018-10-20 06:11] LABS: ANION GAP 8 (5-19); BLOOD UREA NITROGEN 12 mg/dL (7-20); CALCIUM 8.5 mg/dL (8.4-10.2); CARBON DIOXIDE 26 mmol/L (22-30); CHLORIDE 107 mmol/L (98-107); GLUCOSE 102 mg/dL (75-110); POTASSIUM 4.6 mmol/L (3.6-5.0); SODIUM 140.5 mmol/L (137-145)
[2018-10-20 06:33] LABS: ABSOLUTE LYMPHOCYTES# (MANUAL) 2.9 10^3/uL (0.5-4.7); ABSOLUTE MONOCYTES # (MANUAL) 0.2 10^3/uL (0.1-1.4); ABSOLUTE NEUTROPHILS# (MANUAL) 2.7 10^3/uL (1.7-8.2); BASOPHILS % (MANUAL) 1 % (0-2); EOSINOPHILS % (MANUAL) 3 % (0-6); LYMPHOCYTES % (MANUAL) 46 % (13-45); MONOCYTES % (MANUAL) 4 % (3-13); SEGMENTED NEUTROPHILS % (MAN) 44 % (42-78); TOTAL CELLS COUNTED 100
[2018-10-20 06:34] LABS: TOXIC GRANULATION 1+
[2018-10-20 06:36] LABS: PLATELET COMMENT ADEQUATE; RBC MORPHOLOGY COMMENT NORMO-CYTIC/CHROMIC
[2018-10-20] MEDS: PANTOPRAZOLE SODIUM 40 MG VIAL IV SCH ×2 (10:39→21:48)
[2018-10-20] MEDS: DOCUSATE SODIUM 100 MG CAPSULE PO SCH ×2 (10:46→17:31)
[2018-10-20] MEDS ORDERED: NORMAL SALINE 10 ML SDV (AFTER EACH USE) IV PRN (11:00)
--- NOTE | 2018-10-20 11:54 | RADIOLOGY REPORT (SQ) ---
EXAM DESCRIPTION: PICC INSERTION; U/S GUIDE FOR VASCULAR ACCESS; FLUORO/CV PLACEMENT COMPLETED DATE/TIME: 10/20/2018 9:33 am REASON FOR STUDY: fdc antibiotics; [employer] ABX COMPARISON: None. FLUOROSCOPY TIME: 12 seconds 2 images saved to PACS. TECHNIQUE: Fluoroscopic and ultrasound guided PICC placement. LIMITATIONS: None. PROCEDURE: After written consent and assessment were obtained, the patient was brought into the fluo roscopy room and placed supine on the table. Ultrasound evaluation of potential access sites were per formed. After successfully identifying a patent left basilic vein, the left arm was prepped and drape d in a sterile fashion along with the ultrasound probe. The entry site was anesthetized with 1% lidoc ronni. A 21 gauge 7 cm needle was advanced through the skin and into the basilic vein under live ultra sound guidance. An ultrasound image was saved to PACS confirming access site. A .018 guide wire was then inserted through the needle and into the venous system. The needle was then removed and an 11 b lade scalpel was used to make a 1cm skin incision. A 5 fr peel-away sheath was advanced over the wir e and into the venous system. A measurement was then made using the existing wire and live fluoroscop ic guidance. The wire was then removed and trimmed. The PICC was advanced through the peel-away sheat h and into the venous system. The peel-away sheath was removed and the catheter was adhered to the pa tients arm with a stat lock. The catheter was then aspirated and flushed and a sterile bandage was pl aced over the access site. A fluoroscopic spot image was saved to PACS confirming the catheter tip w ithin the superior vena cava. IMPRESSION: SUCCESSFUL PLACEMENT OF A 5 FR DUAL LUMEN 37 CM PICC IN THE LEFT BASILIC VEIN. COMMENT: Patient medication list reviewed: Yes- Quality ID# [id number]:Eligible professional attests to doc umenting in the medical record they obtained, updated, or reviewed the patient's current medications. . Quality ID 145: Final reports for procedures using fluoroscopy that document radiation exposure navjot khalif, or exposure time and number of fluorographic images (if radiation exposure indices are not avail able) Quality ID #76: The patient was prepped and draped using maximum sterile barrier technique including cap, mask, sterile gown, sterile gloves, a large sterile sheet, hand hygiene, and 2% Chlorhexidine fo r cutaneous antisepsis. When ultrasound is used, sterile ultrasound techniques are followed requiring sterile gel and sterile probes. TECHNICAL DOCUMENTATION: JOB ID: [id number] [employer]- All Rights Reserved rev-10/18 Reading location - IP/workstation name: [email or web address]
--- NOTE | 2018-10-20 11:54 | RADIOLOGY REPORT (SQ) ---
EXAM DESCRIPTION: PICC INSERTION; U/S GUIDE FOR VASCULAR ACCESS; FLUORO/CV PLACEMENT COMPLETED DATE/TIME: 10/20/2018 9:33 am REASON FOR STUDY: detention antibiotics; [employer] REPA[employer] ABX COMPARISON: None. FLUOROSCOPY TIME: 12 seconds 2 images saved to PACS. TECHNIQUE: Fluoroscopic and ultrasound guided PICC placement. LIMITATIONS: None. PROCEDURE: After written consent and assessment were obtained, the patient was brought into the fluo roscopy room and placed supine on the table. Ultrasound evaluation of potential access sites were per formed. After successfully identifying a patent left basilic vein, the left arm was prepped and drape d in a sterile fashion along with the ultrasound probe. The entry site was anesthetized with 1% lidoc ronni. A 21 gauge 7 cm needle was advanced through the skin and into the basilic vein under live ultra sound guidance. An ultrasound image was saved to PACS confirming access site. A .018 guide wire was then inserted through the needle and into the venous system. The needle was then removed and an 11 b lade scalpel was used to make a 1cm skin incision. A 5 fr peel-away sheath was advanced over the wir e and into the venous system. A measurement was then made using the existing wire and live fluoroscop ic guidance. The wire was then removed and trimmed. The PICC was advanced through the peel-away sheat h and into the venous system. The peel-away sheath was removed and the catheter was adhered to the pa tients arm with a stat lock. The catheter was then aspirated and flushed and a sterile bandage was pl aced over the access site. A fluoroscopic spot image was saved to PACS confirming the catheter tip w ithin the superior vena cava. IMPRESSION: SUCCESSFUL PLACEMENT OF A 5 FR DUAL LUMEN 37 CM PICC IN THE LEFT BASILIC VEIN. COMMENT: Patient medication list reviewed: Yes- Quality ID# 130:Eligible professional attests to doc umenting in the medical record they obtained, updated, or reviewed the patient's current medications. . Quality ID 145: Final reports for procedures using fluoroscopy that document radiation exposure navjot khalif, or exposure time and number of fluorographic images (if radiation exposure indices are not avail able) Quality ID #76: The patient was prepped and draped using maximum sterile barrier technique including cap, mask, sterile gown, sterile gloves, a large sterile sheet, hand hygiene, and 2% Chlorhexidine fo r cutaneous antisepsis. When ultrasound is used, sterile ultrasound techniques are followed requiring sterile gel and sterile probes. TECHNICAL DOCUMENTATION: JOB ID: [id number] [employer]- All Rights Reserved rev-10/18 Reading location - IP/workstation name: [email or web address]
[2018-10-20] MEDS ORDERED: LIDOCAINE 2% INJ-PF (100 MG/5 ML) SYRINGE ONE (12:37)
[2018-10-20] MEDS ORDERED: FENTANYL CITRATE INJ/PF 250 MCG/5 ML AMPULE ONE (12:37)
[2018-10-20] MEDS ORDERED: DEXAMETHASONE SOD PHOSPHATE INJ 4 MG/1 ML VIAL ONE (12:37)
[2018-10-20] MEDS ORDERED: ONDANSETRON HCL INJ/PF 4 MG/2 ML SDV ONE (12:37)
[2018-10-20] MEDS ORDERED: PROPOFOL INJ 200 MG/20 ML VIAL IV ONE (12:38)
[2018-10-20] MEDS ORDERED: SUCCINYLCHOLINE CHLORIDE INJ 200 MG/10 ML VIAL ONE (13:27)
[2018-10-20] MEDS ORDERED: LIDOCAINE 2%/EPINEPHRINE INJ 1.7 ML CARTRIDGE ONE (13:41)
[2018-10-20] MEDS ORDERED: BUPIVACAINE HCL 0.5%/EPI 1:200000 INJ 1.8 ML CARTRIDGE ONE (13:41)
[2018-10-20] MEDS ORDERED: BACITRACIN INJ 50,000 UNIT VIAL ONE (13:43)
[2018-10-20 14:37] LABS: HEPATITIS A AB IGM Negative (Negative); HEPATITIS B CORE AB IGM Negative (Negative); HEPATITS B SURFACE ANTIGEN Negative (Negative)
[2018-10-20 14:42] LABS: HEPATITIS C VIRUS ANTIBODY >11.0 s/co ratio (0.0-0.9)
[2018-10-20] MEDS ORDERED: MORPHINE SULFATE 10 MG/ML INJ IV PRN (15:04)
[2018-10-20] MEDS ORDERED: MEPERIDINE HCL/PF INJ 25 MG/1 ML DISP.SYRIN IV PRN (15:04)
[2018-10-20] MEDS ORDERED: DIPHENHYDRAMINE HCL 50 MG/ML VIAL IV PRN (15:04)
[2018-10-20] MEDS ORDERED: FENTANYL CITRATE INJ/PF 100 MCG/2 ML AMPUL IV PRN ×3 (15:04)
[2018-10-20] MEDS ORDERED: PROMETHAZINE HCL INJ 25 MG/1 ML VIAL IV PRN (15:04)
--- NOTE | 2018-10-20 15:40 | PDOC PROGRESS REPORT ---
Subjective Progress Note for:: 10/20/18 Subjective:: No adverse events overnight. No new complaints. Vital signs been stable. She will get a PICC line today before she has her I&D. Reason For Visit: CELLULITIS WITH ABSCESS LEFT NECK,FOREIGN BODY Physical Exam Vital Signs: Temp Pulse Resp BP Pulse Ox 97.5 F 63 17 95/56 L 99 10/20/18 12:12 10/20/18 12:12 10/20/18 12:12 10/20/18 12:12 10/20/18 12:12 Intake & Output 10/19/18 10/20/18 10/21/18 06:59 06:59 06:59 Intake Total 3116 2200 250 Balance 3116 2200 250 Weight 56.1 kg 56.1 kg General appearance: PRESENT: no acute distress, cooperative, disheveled Neck exam: PRESENT: other - She has a large protrusion on the left side of her neck corresponding to the abscess seen on CT Respiratory exam: PRESENT: clear to auscultation soo, symmetrical, unlabored. ABSENT: accessory muscle use, crackles, prolonged expiratory phas, rhonchi, tachypnea, wheezes Cardiovascular exam: PRESENT: RRR, +S1, +S2. ABSENT: diastolic murmur, systolic murmur Vascular exam: PRESENT: normal capillary refill GI/Abdominal exam: PRESENT: normal bowel sounds, soft. ABSENT: distended, guarding, rebound, tenderness Extremities exam: ABSENT: clubbing, pedal edema Musculoskeletal exam: PRESENT: normal inspection. ABSENT: deformity Neurological exam: PRESENT: alert, awake, oriented to person, oriented to place, oriented to time, oriented to situation Psychiatric exam: PRESENT: appropriate affect, normal mood Skin exam: PRESENT: dry, warm Results Laboratory Results: 10/20/18 05:05 10/20/18 05:05 10/20/18 10/20/18 05:05 05:05 WBC 6.1 RBC 3.96 Hgb 11.2 L Hct 33.3 L MCV 84 MCH 28.2 MCHC 33.5 RDW 13.8 Plt Count 243 Seg Neutrophils % Not Reportable Lymphocytes % Not Reportable Monocytes % Not Reportable Eosinophils % Not Reportable Basophils % Not Reportable Absolute Neutrophils Not Reportable Absolute Lymphocytes Not Reportable Absolute Monocytes Not Reportable Absolute Eosinophils Not Reportable Absolute Basophils Not Reportable Sodium 140.5 Potassium 4.6 Chloride 107 Carbon Dioxide 26 Anion Gap 8 BUN 12 Creatinine 0.62 Est GFR ( Amer) > 60 Est GFR (Non-Af Amer) > 60 Glucose 102 Calcium 8.5 Magnesium 2.2 Impressions: Chest X-Ray 10/18/18 00:00 IMPRESSION: NO ACUTE FINDINGS. Soft Tissue Neck CT 10/18/18 03:44 IMPRESSION: Abscess of the superficial left neck region, inseparable from the left sternocleidomastoid musculature. There is linear radiopaque foreign body/needle fragment along the inferior aspect of the abscess. There is also a superficial needle fragment associated with the right supraclavicular neck, as above. TECHNICAL DOCUMENTATION: Quality ID # 436: Final reports with documentation of one or more dose reduction techniques (e.g., Automated exposure control, adjustment of the mA and/or kV according to patient size, use of iterative reconstruction technique) copyright 2011 [employer]- All Rights Reserved Guidance Fluoroscopy 10/20/18 00:00 IMPRESSION: SUCCESSFUL PLACEMENT OF A 5 FR DUAL LUMEN 37 CM PICC IN THE LEFT BASILIC VEIN. Interventional Vascular Procedure 10/20/18 00:00 IMPRESSION: SUCCESSFUL PLACEMENT OF A 5 FR DUAL LUMEN 37 CM PICC IN THE LEFT BASILIC VEIN. PICC Line Insertion 10/20/18 00:00 IMPRESSION: SUCCESSFUL PLACEMENT OF A 5 FR DUAL LUMEN 37 CM PICC IN THE LEFT BASILIC VEIN. Assessment and Plan - Diagnosis (1) Cellulitis and abscess of neck Is this a current diagnosis for this admission?: Yes Plan: She has a Klebsiella to other organisms growing out of the neck abscess. She is on broad-spectrum antibiotic coverage at this time. Plan for an I&D today. (2) Foreign body of neck with infection Qualifiers: Encounter type: initial encounter Qualified Code(s): S10.95XA - Superficial foreign body of unspecified part of neck, initial encounter; L08.9 - Local infection of the skin and subcutaneous tissue, unspecified Is this a current diagnosis for this admission?: Yes Plan: She has a needle tip broken off in each side of her neck. These will be removed during the procedure today. (3) IV drug abuse Is this a current diagnosis for this admission?: Yes Plan: Echocardiogram did not show evidence of endocarditis. Monitoring for any signs of withdrawal. (4) Gram-negative bacteremia Is this a current diagnosis for this admission?: Yes Plan: She has Serratia growing out of of 1 of her cultures. Today she also had a gram-positive that showed up in that same culture. We are awaiting the susceptibilities. Continues on broad-spectrum antibiotic coverage for the time being. - Time Time Spent with patient: 15-24 minutes
--- NOTE | 2018-10-20 15:51 | RADIOLOGY REPORT (SQ) ---
EXAM DESCRIPTION: NO CHG FLUORO; SOFT TISSUE NECK COMPLETED DATE/TIME: 10/20/2018 3:34 pm REASON FOR STUDY: FB REMOVAL BILAT SIDES OF THE NECK COMPARISON: None. FLUOROSCOPY TIME: 2.0 minute 3 images saved to PACS. TECHNIQUE: Intra-operative images acquired during surgical procedure to evaluate progress. NUMBER OF IMAGES: 3 LIMITATIONS: None. FINDINGS: 3 fluoroscopic images. Linear metallic foreign body right supraclavicular soft tissues on the 1st image. IMPRESSION: IMAGE(S) OBTAINED DURING PROCEDURE. COMMENT: Quality ID 145: Final reports for procedures using fluoroscopy that document radiation exp osure indices, or exposure time and number of fluorographic images (if radiation exposure indices are not available) Please consult full operative report of the attending physician for description of the procedure. TECHNICAL DOCUMENTATION: JOB ID: [id number] [employer]- All Rights Reserved Reading location - IP/workstation name: [email or web address]
--- NOTE | 2018-10-20 15:51 | RADIOLOGY REPORT (SQ) ---
EXAM DESCRIPTION: NO CHG FLUORO; SOFT TISSUE NECK COMPLETED DATE/TIME: 10/20/2018 3:34 pm REASON FOR STUDY: FB REMOVAL BILAT SIDES OF THE NECK COMPARISON: None. FLUOROSCOPY TIME: 2.0 minute 3 images saved to PACS. TECHNIQUE: Intra-operative images acquired during surgical procedure to evaluate progress. NUMBER OF IMAGES: 3 LIMITATIONS: None. FINDINGS: 3 fluoroscopic images. Linear metallic foreign body right supraclavicular soft tissues on the 1st image. IMPRESSION: IMAGE(S) OBTAINED DURING PROCEDURE. COMMENT: Quality ID 145: Final reports for procedures using fluoroscopy that document radiation exp osure indices, or exposure time and number of fluorographic images (if radiation exposure indices are not available) Please consult full operative report of the attending physician for description of the procedure. TECHNICAL DOCUMENTATION: JOB ID: [id number] [employer]- All Rights Reserved Reading location - IP/workstation name: [email or web address]
[2018-10-20] MEDS: NICOTINE 14 MG/24 HR PATCH.TD24 TD SCH (16:28)
[2018-10-20] MEDS: FENTANYL CITRATE INJ/PF 100 MCG/2 ML AMPUL ONE ×2 (16:30→17:00)
[2018-10-20] MEDS: CHLORPROMAZINE HCL INJ 25 MG/1 ML AMPULE IV PRN (18:42)
--- NOTE | 2018-10-20 19:24 | OPERATIVE REPORT E ---
Operative Report NAME: EMMA BRUSH : 1990 AGE: 27Y DATE OF SURGERY: 10/20/2018 ROOM: 403 PREOPERATIVE DIAGNOSES: 1. COMPLEX LEFT NECK CELLULITIS AND COMPLEX ABSCESS. 2. BILATERAL NECK FOREIGN BODIES CONSISTENT WITH BROKEN HYPODERMIC NEEDLE FRAGMENTS. 3. HISTORY OF INTRAVENOUS DRUG ABUSE. 4. HISTORY OF POLYSUBSTANCE ABUSE. 5. HISTORY OF BACTERIAL ENDOCARDITIS. POSTOPERATIVE DIAGNOSES: 1. COMPLEX LEFT NECK CELLULITIS AND COMPLEX ABSCESS. 2. BILATERAL NECK FOREIGN BODIES CONSISTENT WITH BROKEN HYPODERMIC NEEDLE FRAGMENTS. 3. HISTORY OF INTRAVENOUS DRUG ABUSE. 4. HISTORY OF POLYSUBSTANCE ABUSE. 5. HISTORY OF BACTERIAL ENDOCARDITIS. OPERATION: 1. BILATERAL NECK EXPLORATIONS WITH USE OF INTRA-OPERATIVE FLUOROSCOPY THROUGHOUT THIS PORTION OF THE CASE WITH REMOVAL OF ONE FOREIGN BODY PER SIDE CONSISTENT WITH HYPODERMIC NEEDLE FRAGMENTS. 2. COMPLEX LEFT NECK ABSCESS MANAGEMENT WITH DRAINAGE, DEBRIDEMENT, AND ANTIBIOTIC IRRIGATION WITH BACITRACIN SOLUTION AND PLACEMENT OF TWO SHARA DRAINS AT TWO SEPARATE LOCATIONS. 3. INTRAOPERATIVE USE OF FLUOROSCOPY. SURGEON: FLORENCIO GREENE D.O. ANESTHESIA: General endotracheal tube. ANESTHESIA STAFF: CHRISTOPHER Nguyen ESTIMATED BLOOD LOSS: 15 mL FLUIDS: 800 mL COMPLICATIONS: None. DRAINS: Two modified Shara drains. SPONGE COUNT: Verified. NEEDLE COUNT: Verified. MATERIALS FORWARDED SPECIMENS: 1. Left neck level IV contents consisting of fibrofatty tissue and enlarged lymph nodes. 2. Left and right neck foreign bodies consistent with hypodermic needle fragments. FINDINGS: 1. Extensive left neck abscess with surrounding cellulitis changes and prior I&D site from the emergency room. The site was with serosanguineous drainage. A Nu-Gauze packing wick was removed at the time the dressing was removed. The abscess cavity tracked superiorly and inferiorly comprising neck levels II, III, and IV. There was scant purulence noted during the process of abscess management. There were enlarged lymph nodes in the vicinity of the left neck needle fragment. 2. Left and right base of neck/level IV metallic foreign bodies identified with the assistance of intraoperative fluoroscopy and consistent with hypodermic needle fragments. INDICATIONS: This is a 27-year-old white female who was seen and evaluated on 10/18/2018, as an [facility] inpatient consult request from the ER physician. The patient had come in through the ER with a one-week history of fevers, chills, and history of IV drug abuse and polysubstance abuse. The patient had been accessing her left and right neck with hypodermic needles. The patient reported that two needles broke off in her left and right neck during the past one to two weeks. The patient is also with history of bacterial endocarditis, which she was hospitalized six months ago in [place], [place]. Please see the patient's inpatient record and history and physical for additional details. There was extensive discussion with the patient with recommendation and plan for definitive management in the main operating room consisting of bilateral neck exploration for removal of the needle fragments and for complex left neck abscess management. The patient voiced an understanding all that was discussed and was in agreement to proceed. The procedures and their risks and complications were discussed in detail, which included and was not limited to bleeding, scarring, infection, injury to blood vessels and nerves, and need of additional care and/or procedures/surgeries, and rarely . The patient voiced an understanding, was in agreement, and consent was obtained. PROCEDURE: The patient was taken to the main operating room and was placed on the operating room table in the supine position. Using mask and IV access, general anesthesia was induced. The patient was transorally intubated without difficulty. At this point, the patient was positioned and prepped for bilateral neck surgery. There were planned incision sites at each lateral neck level 4/5 made with a surgical marking pen that had been infiltrated with Marcaine with epinephrine for local anesthesia. Intraoperative fluoroscopy was used throughout the case to identify the location of the needle fragments. Bilateral neck incisions were made down to the level of the subcutaneous tissues with needle fragments identified and removed, and passed off for permanent pathology evaluation. At this point, attention was turned to the left neck, that was probed with a pair of tonsil hemostats to break up any areas of loculations. There was scant purulence noted during this process. The complex left neck abscess cavity was thoroughly irrigated with Bacitracin antibiotic solution. At this point, there were two modified Shara drains placed into the left neck abscess cavity at two different levels. The left and right neck incisions were reapproximated using Monocryl suture deep as well as at the skin level. There were sutures placed with Monocryl around the Shara drains. There were also additional Monocryl sutures placed at each of the left neck incisions and secured with Steri-Strips to be used as rescue sutures to reapproximate tissue/skin once the drains and eventual packing materials had been removed.The patient's neck was then cleaned and dried followed by placement of Mastisol and Steri-Strips over the right neck incision. The left neck had Bacitracin ointment applied followed by a fluffs pressure dressing. The patient was then returned to the anesthesia staff and was allowed to emerge from general anesthesia. The patient was extubated in the main operating room and was then transported to the post anesthesia recovery room in stable condition. There were no complications. DICTATING PHYSICIAN: FLORENCIO GREENE D.O. [id number] PHY#: [id number] ID: [id number] JOB#: [id number] ACCT: [id number] cc:FLORENCIO GREENE D.O. > MTDD
[2018-10-20] MEDS: NORMAL SALINE 10 ML SDV (SCHEDULED) IV SCH (21:49)
[2018-10-21] MEDS: MORPHINE SULFATE 10 MG/ML INJ IV PRN ×6 (01:49→23:10)
[2018-10-21] MEDS: ACETAMINOPHEN 325 MG TABLET PO PRN ×3 (03:59→19:33)
[2018-10-21] MEDS: CHLORPROMAZINE HCL INJ 25 MG/1 ML AMPULE IV PRN ×2 (04:00→22:00)
[2018-10-21] MEDS: PIPERACILLIN SODIUM/TAZOBACTAM 3.375 GM in NORMAL SALINE 100 ML IV SCH ×4 (05:18→23:13)
[2018-10-21 05:59] LABS: ABSOLUTE EOSINOPHILS # (AUTO) 0.1 10^3/uL (0.0-0.6); ABSOLUTE MONOCYTES (AUTO) 0.6 10^3/uL (0.1-1.4); ABSOLUTE NEUT (AUTO) 4.8 10^3/uL (1.7-8.2); BASOPHILS % (AUTO) 0.2 % (0-2); EOSINOPHILS % (AUTO) 0.7 % (0-6); HEMATOCRIT 31.9 % (36.0-47.0); HEMOGLOBIN 10.4 g/dL (12.0-15.5); LYMPHOCYTES % (AUTO) 35.5 % (13-45); MEAN CORPUSCULAR HEMOGLOBIN 27.8 pg (27.0-33.4); MEAN CORPUSCULAR HGB CONC 32.7 g/dL (32.0-36.0); MEAN CORPUSCULAR VOLUME 85 fl (80-97); PLATELET COUNT 286 10^3/uL (150-450); RED BLOOD COUNT 3.75 10^6/uL (3.72-5.28); RED CELL DISTRIBUTION WIDTH 13.7 % (11.5-14.0); SEGMENTED NEUTROPHILS % (AUTO) 56.6 % (42-78); TOTAL CELLS COUNTED % (AUTO) 100 %; WHITE BLOOD COUNT 8.5 10^3/uL (4.0-10.5)
[2018-10-21] MEDS: VANCOMYCIN HCL 1,000 MG in DEXTROSE 5%-WATER 250 ML IV SCH ×2 (06:12→17:26)
[2018-10-21 06:25] LABS: ANION GAP 8 (5-19); BLOOD UREA NITROGEN 15 mg/dL (7-20); CALCIUM 8.4 mg/dL (8.4-10.2); CARBON DIOXIDE 29 mmol/L (22-30); CHLORIDE 107 mmol/L (98-107); GLUCOSE 119 mg/dL (75-110); POTASSIUM 4.1 mmol/L (3.6-5.0); SODIUM 143.7 mmol/L (137-145)
[2018-10-21] MEDS: HEPARIN SOD (PORCINE) 5,000 UNIT/ML 1 ML SYRINGE SUBCUT SCH ×3 (07:09→21:10)
[2018-10-21] MEDS: DOCUSATE SODIUM 100 MG CAPSULE PO SCH ×2 (10:01→17:16)
[2018-10-21] MEDS: NICOTINE 14 MG/24 HR PATCH.TD24 TD SCH (10:01)
[2018-10-21] MEDS: NORMAL SALINE 10 ML SDV (SCHEDULED) IV SCH ×2 (10:03→21:08)
--- NOTE | 2018-10-21 14:20 | PDOC PROGRESS REPORT ---
Subjective Progress Note for:: 10/21/18 Subjective:: This is a 27 yr old female with a PMH of IV drug use and CHF from bacterial endocarditis who presented with fever and swelling of the left cervical area. She was found to have and abscess and retained needle fragments on the neck. She underwent I&D with removal of retained needle fragments yesterday 10/20. No acute event overnight. This morning, she appeared comfortable in bed but does report that the morphine regimen she is on is not "cutting it". Denies chest pa in or SOB. Reason For Visit: CELLULITIS WITH ABSCESS LEFT NECK,FOREIGN BODY Physical Exam Vital Signs: Temp Pulse Resp BP Pulse Ox 98.1 F 75 15 124/80 99 10/21/18 12:00 10/21/18 12:00 10/21/18 12:00 10/21/18 12:00 10/21/18 12:00 Intake & Output 10/20/18 10/21/18 10/22/18 06:59 06:59 06:59 Intake Total 2200 3940 1040 Output Total 15 Balance 2200 3925 1040 Weight 123 lb 10.869 oz 131 lb 9.855 oz General appearance: PRESENT: no acute distress, well-developed, well-nourished Head exam: PRESENT: atraumatic, normocephalic Eye exam: PRESENT: conjunctiva pink, EOMI, PERRLA. ABSENT: scleral icterus Ear exam: PRESENT: normal external ear exam Mouth exam: PRESENT: moist, tongue midline Neck exam: PRESENT: other - Arpit drain and dressing in place. ABSENT: carotid bruit, JVD, lymphadenopathy, thyromegaly Respiratory exam: PRESENT: clear to auscultation soo. ABSENT: rales, rhonchi, wheezes Cardiovascular exam: PRESENT: diastolic murmur, RRR. ABSENT: rubs Pulses: PRESENT: normal dorsalis pedis pul GI/Abdominal exam: PRESENT: normal bowel sounds, soft. ABSENT: distended, guarding, mass, organolmegaly, rebound, tenderness Rectal exam: PRESENT: deferred Neurological exam: PRESENT: alert, awake, oriented to person, oriented to place, oriented to time, oriented to situation, CN II-XII grossly intact. ABSENT: motor sensory deficit Results Laboratory Results: 10/21/18 05:15 10/21/18 05:15 10/21/18 10/21/18 05:15 05:15 WBC 8.5 RBC 3.75 Hgb 10.4 L Hct 31.9 L MCV 85 MCH 27.8 MCHC 32.7 RDW 13.7 Plt Count 286 Seg Neutrophils % 56.6 Lymphocytes % 35.5 Monocytes % 7.0 Eosinophils % 0.7 Basophils % 0.2 Absolute Neutrophils 4.8 Absolute Lymphocytes 3.0 Absolute Monocytes 0.6 Absolute Eosinophils 0.1 Absolute Basophils 0.0 Sodium 143.7 Potassium 4.1 Chloride 107 Carbon Dioxide 29 Anion Gap 8 BUN 15 Creatinine 0.70 Est GFR ( Amer) > 60 Est GFR (Non-Af Amer) > 60 Glucose 119 H Calcium 8.4 Magnesium 2.3 10/18/18 05:28 Neck - Abscess Gram Stain - Final 10/18/18 05:28 Neck - Abscess Wound Culture - Final Enterococcus Faecalis(Group D) Klebsiella Oxytoca Staphylococcus Aureus Impressions: Chest X-Ray 10/18/18 00:00 IMPRESSION: NO ACUTE FINDINGS. Soft Tissue Neck CT 10/18/18 03:44 IMPRESSION: Abscess of the superficial left neck region, inseparable from the left sternocleidomastoid musculature. There is linear radiopaque foreign body/needle fragment along the inferior aspect of the abscess. There is also a superficial needle fragment associated with the right supraclavicular neck, as above. TECHNICAL DOCUMENTATION: Quality ID # 436: Final reports with documentation of one or more dose reduction techniques (e.g., Automated exposure control, adjustment of the mA and/or kV according to patient size, use of iterative reconstruction technique) copyright 2011 [employer]- All Rights Reserved Fluoroscopy 10/20/18 00:00 IMPRESSION: IMAGE(S) OBTAINED DURING PROCEDURE. Guidance Fluoroscopy 10/20/18 00:00 IMPRESSION: SUCCESSFUL PLACEMENT OF A 5 FR DUAL LUMEN 37 CM PICC IN THE LEFT BASILIC VEIN. Interventional Vascular Procedure 10/20/18 00:00 IMPRESSION: SUCCESSFUL PLACEMENT OF A 5 FR DUAL LUMEN 37 CM PICC IN THE LEFT BASILIC VEIN. PICC Line Insertion 10/20/18 00:00 IMPRESSION: SUCCESSFUL PLACEMENT OF A 5 FR DUAL LUMEN 37 CM PICC IN THE LEFT BASILIC VEIN. Soft Tissue Neck X-Ray 10/20/18 00:00 IMPRESSION: IMAGE(S) OBTAINED DURING PROCEDURE. Assessment and Plan - Diagnosis (1) Cellulitis and abscess of neck Is this a current diagnosis for this admission?: Yes Plan: She underwent I&D with removal of retained needle fragments yesterday 10/20. Continue vancomycin and Zosyn for now pending final results of wound and blood cultures. (2) Foreign body of neck with infection Qualifiers: Encounter type: initial encounter Qualified Code(s): S10.95XA - Superficial foreign body of unspecified part of neck, initial encounter; L08.9 - Local infection of the skin and subcutaneous tissue, unspecified Is this a current diagnosis for this admission?: Yes Plan: As per number 1. (3) Gram-negative bacteremia Is this a current diagnosis for this admission?: Yes Plan: As per number 1. (4) Polysubstance abuse Is this a current diagnosis for this admission?: Yes Plan: Counseled on cessation of drug use. - Time Time Spent with patient: 15-24 minutes
[2018-10-21] MEDS: CLONIDINE HCL 0.2 MG TABLET PO SCH (21:07)
[2018-10-21] MEDS: KETOROLAC TROMETHAMINE INJ/PF 30 MG/1 ML SDV IV PRN (21:08)
[2018-10-21] MEDS: NORMAL SALINE 1000 ML 1,000 ML IV PRN (23:12)
[2018-10-22] MEDS: MORPHINE SULFATE 10 MG/ML INJ IV PRN ×4 (03:13→18:58)
[2018-10-22] MEDS: KETOROLAC TROMETHAMINE INJ/PF 30 MG/1 ML SDV IV PRN ×3 (04:46→22:27)
[2018-10-22] MEDS: CLONIDINE HCL 0.2 MG TABLET PO SCH ×3 (05:49→22:26)
[2018-10-22] MEDS: PIPERACILLIN SODIUM/TAZOBACTAM 3.375 GM in NORMAL SALINE 100 ML IV SCH ×3 (05:49→17:25)
[2018-10-22] MEDS: HEPARIN SOD (PORCINE) 5,000 UNIT/ML 1 ML SYRINGE SUBCUT SCH ×3 (05:52→21:53)
[2018-10-22] MEDS: CHLORPROMAZINE HCL INJ 25 MG/1 ML AMPULE IV PRN ×2 (06:24→17:25)
[2018-10-22] MEDS: VANCOMYCIN HCL 1,000 MG in DEXTROSE 5%-WATER 250 ML IV SCH ×2 (06:24→18:03)
--- NOTE | 2018-10-22 07:24 | PROGRESS NOTE E ---
Progress Note NAME: EMMA BRUSH : 1990 AGE: 27Y DATE: 10/21/2018 ROOM: 403 SUBJECTIVE: The patient reports doing reasonably well overnight except for having persistent increase in neck pain and believes her pain medication is not sufficient. The patient otherwise was without fever, chills, nausea, or vomiting. The patient is tolerating p.o. well. OBJECTIVE: VITAL SIGNS: Stable and patient was afebrile. HEENT: The neck Fluffs pressure dressing was released with moderate serosanguineous discharge noted and the 2 modified Arpit drains appeared stable and in position. The dressing was changed to a new Fluff pressure dressing. There was mild erythema surrounding the original ER I and D site. No purulence was noted. ASSESSMENT: 1. LEFT NECK ABSCESS. 2. POD1: THE PATIENT IS STATUS POST REMOVAL OF 2 HYPODERMIC NEEDLE FRAGMENTS FROM THE LEFT AND RIGHT NECK. 3. HISTORY OF IV DRUG ABUSE. 4. HISTORY OF POLYSUBSTANCE ABUSE. PLAN: The patient will continue on IV antibiotic therapy and also received her PICC line on Saturday, October 20. Cultures will be monitored to guide antibiotic therapy. Otherwise, her current care regimen will be continued. Patient care time was 20 minutes. DICTATING PHYSICIAN: FLORENCIO GREENE D.O. [id number] PHY#: [id number] ID: [id number] JOB#: [id number] ACCT: [id number] cc: > MTDD
[2018-10-22] MEDS: DOCUSATE SODIUM 100 MG CAPSULE PO SCH ×2 (10:08→17:27)
[2018-10-22] MEDS: NICOTINE 14 MG/24 HR PATCH.TD24 TD SCH (10:08)
[2018-10-22] MEDS: NORMAL SALINE 10 ML SDV (SCHEDULED) IV SCH ×2 (10:11→22:27)
[2018-10-22] MEDS: NORMAL SALINE 1000 ML 1,000 ML IV PRN (14:57)
--- NOTE | 2018-10-22 15:06 | PDOC PROGRESS REPORT ---
Subjective Progress Note for:: 10/22/18 Subjective:: This is a 27 yr old female with a PMH of IV drug use and CHF from bacterial endocarditis who presented with fever and swelling of the left cervical area. She was found to have and abscess and retained needle fragments on the neck. 10/21: She underwent I&D with removal of retained needle fragments yesterday 10/20. This morning, she appeared comfortable in bed but does report that the morphine regimen she is on is not "cutting it". Denies chest pain or SOB. 10/22: No acute event overnight. She is asleep upon encounter. She says she still has significant pain. Reason For Visit: CELLULITIS WITH ABSCESS LEFT NECK,FOREIGN BODY Physical Exam Vital Signs: Temp Pulse Resp BP Pulse Ox 98.0 F 72 16 131/78 H 99 10/22/18 11:35 10/22/18 11:35 10/22/18 11:35 10/22/18 11:35 10/22/18 11:35 Intake & Output 10/21/18 10/22/18 10/23/18 06:59 06:59 06:59 Intake Total 3940 2861 2070 Output Total 15 1 Balance 3925 2860 2070 Weight 131 lb 9.855 oz 133 lb 13.129 oz General appearance: PRESENT: no acute distress, well-developed, well-nourished Head exam: PRESENT: atraumatic, normocephalic Eye exam: PRESENT: conjunctiva pink, EOMI, PERRLA. ABSENT: scleral icterus Ear exam: PRESENT: normal external ear exam Mouth exam: PRESENT: moist, tongue midline Teeth exam: PRESENT: other - dressings in place Respiratory exam: PRESENT: clear to auscultation soo. ABSENT: rales, rhonchi, wheezes Cardiovascular exam: PRESENT: RRR. ABSENT: diastolic murmur, rubs, systolic murmur Pulses: PRESENT: normal dorsalis pedis pul GI/Abdominal exam: PRESENT: normal bowel sounds, soft. ABSENT: distended, gu arding, mass, organolmegaly, rebound, tenderness Rectal exam: PRESENT: deferred Neurological exam: PRESENT: alert, awake, oriented to person, oriented to place, oriented to time, oriented to situation, CN II-XII grossly intact. ABSENT: motor sensory deficit Results Laboratory Results: 10/21/18 05:15 10/21/18 05:15 Impressions: Chest X-Ray 10/18/18 00:00 IMPRESSION: NO ACUTE FINDINGS. Soft Tissue Neck CT 10/18/18 03:44 IMPRESSION: Abscess of the superficial left neck region, inseparable from the left sternocleidomastoid musculature. There is linear radiopaque foreign body/needle fragment along the inferior aspect of the abscess. There is also a superficial needle fragment associated with the right supraclavicular neck, as above. TECHNICAL DOCUMENTATION: Quality ID # 436: Final reports with documentation of one or more dose reduction techniques (e.g., Automated exposure control, adjustment of the mA and/or kV according to patient size, use of iterative reconstruction technique) copyright 2011 [employer]- All Rights Reserved Fluoroscopy 10/20/18 00:00 IMPRESSION: IMAGE(S) OBTAINED DURING PROCEDURE. Guidance Fluoroscopy 10/20/18 00:00 IMPRESSION: SUCCESSFUL PLACEMENT OF A 5 FR DUAL LUMEN 37 CM PICC IN THE LEFT BASILIC VEIN. Interventional Vascular Procedure 10/20/18 00:00 IMPRESSION: SUCCESSFUL PLACEMENT OF A 5 FR DUAL LUMEN 37 CM PICC IN THE LEFT BASILIC VEIN. PICC Line Insertion 10/20/18 00:00 IMPRESSION: SUCCESSFUL PLACEMENT OF A 5 FR DUAL LUMEN 37 CM PICC IN THE LEFT BASILIC VEIN. Soft Tissue Neck X-Ray 10/20/18 00:00 IMPRESSION: IMAGE(S) OBTAINED DURING PROCEDURE. Assessment and Plan - Diagnosis (1) Cellulitis and abscess of neck Is this a current diagnosis for this admission?: Yes Plan: She underwent I&D with removal of retained needle fragments on 10/20. Continue vancomycin and Zosyn for now pending final results of wound and blood cultures. Wound culture growing E. faecalis, MSSA and Klebsiella. Blood culture is growing Serratia and GPC so far. (2) Foreign body of neck with infection Qualifiers: Encounter type: initial encounter Qualified Code(s): S10.95XA - Superficial foreign body of unspecified part of neck, initial encounter; L08.9 - Local inf ection of the skin and subcutaneous tissue, unspecified Is this a current diagnosis for this admission?: Yes Plan: As per number 1. (3) Gram-negative bacteremia Is this a current diagnosis for this admission?: Yes Plan: As per number 1. (4) Polysubstance abuse Is this a current diagnosis for this admission?: Yes Plan: Counseled on cessation of drug use. (5) Hepatitis C Is this a current diagnosis for this admission?: Yes Plan: She will need outpatient referral to an ID clinic for further eval and treatment. - Time Time Spent with patient: 15-24 minutes
--- NOTE | 2018-10-22 16:03 | Progress Note ---
Provider Note Provider Note: ID Consult Note Asked to review patient's chart. Pt not seen or examiend. Ms. Mar is a 27 year old woman with hx of POTS syndrome, prior episode of infective endocarditis at an outside hospital, and IVDU who presented on 10/18/18 with 2 weeks of progressive worsening redness and swelling over her left neck that became associated with fever the evening prior to admission. She reported injecting into her neck and breaking off needles in her neck. On presentation she had fever 100.7 F but rapidly defervesced after admission. On exam she was found to have tachycardia, erythema over the left neck with local tenderness and warmth and fullness. At the base of the right neck were the appearance of numerous injection gonzalez and a rigid foreign body c/w broken hypodermic needle as she had on the left. No murmur was auscultated. CT of the neck showed a complex fluid collection worrisome for abscess approximately 4.4 x 2.3 x 3 cm along the L sternocleidomastoid musculature with retained needle fragements. TTE was performed and showed no valvular vegetations. CXR showed no significant findings. Blood cultures on admission had in one bottle of one set Serratia marcescens and a coagulase-positive Staph (susceptibilities - MSSA or MRSA - pending). The Serratia is susceptible to Bactrim, fluoroquinolones, Zosyn, and reported susceptible to third and fourth generation cephalosporins but resistant to 1st and 2nd generation cephalosporins. On 10/18 she had drainage of the neck abscess performed by the ED provider Dr Downing with output of moderate amount of malodorous purulent discharge. Culture of the material yeilded growth of 1+ Klebsiella oxytoca, 3+ MSSA, and 3+ Enterococcus faecalis. The MSSA is resistant to fluoroquinolones and clindamycin. The Klebsiella is susceptible except for ampicillin. She was taken by Dr Martini, ENT physician, for I&D on 10/20 for the left neck abscess and exploration of the neck b/l with removal of one hypodermic needle fragments per side and maria eugenia drain placement x 2. Upon exploration of her neck on the left, scant purulence was noted and the abscess cavity was irrigated. Blood cultures were repeated on 10/21 and results are pending. Impression Polymicrobial bacteremia, including presumptive Staphylococcus aureus bacteremia, and polymicrobial left neck abscess secondary to IV drug use - pt has bacteremia with GPCs (to be identified but anticipated to be either MSSA or MRSA) and Serratia - neck abscess involves Klebsiella, MSSA, and E faecalis. - TTE shows no evidence of current endocarditis; no suggestion of right sided IE with septic pulmonary emboli on CXR or by symptoms. - Per notes, no other areas of metastatic disease notable on exam (e.g. no description of erythematous painful swollen joints or point tenderness with percussion down bony spine) - Right now, she is on vancomycin and Zosyn. Recommendations - Recommend continuing vancomycin until the GPCs in blood are identified and susceptibilities reported. - Zosyn can be changed to Bactrim 2 DS BID PO. I would change Zosyn to Bactrim because it presents an oral option that is relatively inexpensive (pt is self-pay) and the combination of Zosyn and vancomycin can be associated with some increase in nephrotoxicity. An alternative would be to use PO Cipro [address] of Zosyn if she cannot tolerate Bactrim. - For the presumptive Staphylococcus aureus in her blood, the standard of care is treatment with IV vancomycin (or daptomycin) if MRSA or an IV antistaphylococcal beta-lactam if MSSA. The duration of therapy at a minimum would be 2 weeks from date of negative blood cultures. Need to f/u repeat BCx from 10/21. - If the patient leaves AMA prior to a final plan being formulated, the best option to offer her would be PO Bactrim 2 DS BID, but that it is not ideal (e.g. inferior outcomes have previously been noted in comparisons of vancomycin vs Bactrim for serious MRSA infections, for example.) Christiano Velez MD [facility] Infectious Diseases pager [phone]
[2018-10-23] MEDS: PIPERACILLIN SODIUM/TAZOBACTAM 3.375 GM in NORMAL SALINE 100 ML IV SCH ×2 (00:22→05:54)
[2018-10-23] MEDS: MORPHINE SULFATE 10 MG/ML INJ IV PRN ×3 (02:07→10:59)
[2018-10-23] MEDS: HEPARIN SOD (PORCINE) 5,000 UNIT/ML 1 ML SYRINGE SUBCUT SCH (05:50)
[2018-10-23] MEDS: NORMAL SALINE 1000 ML 1,000 ML IV PRN (05:56)
[2018-10-23] MEDS: CLONIDINE HCL 0.2 MG TABLET PO SCH ×2 (05:58→13:46)
[2018-10-23] MEDS: VANCOMYCIN HCL 1,000 MG in DEXTROSE 5%-WATER 250 ML IV SCH ×2 (06:47→17:31)
[2018-10-23] MEDS: NICOTINE 14 MG/24 HR PATCH.TD24 TD SCH (09:21)
[2018-10-23] MEDS: DOCUSATE SODIUM 100 MG CAPSULE PO SCH (09:21)
[2018-10-23] MEDS: NORMAL SALINE 10 ML SDV (SCHEDULED) IV SCH (09:21)
[2018-10-23] MEDS ORDERED: TRAMADOL HCL 50 MG TABLET PO PRN (11:30)
[2018-10-23] MEDS ORDERED: MORPHINE SULFATE 10 MG/ML INJ IV PRN (11:30)
[2018-10-23] MEDS ORDERED: SULFAMETHOXAZOLE/TRIMETHOPRIM 800-160 MG TABLET PO SCH ×2 (13:00→22:00)
[2018-10-23] MEDS: ACETAMINOPHEN 325 MG TABLET PO PRN (13:54)
--- NOTE | 2018-10-23 14:28 | Progress Note ---
Provider Note Provider Note: ID Consult - Brief Note. Bactrim 1 DS BID vs 2 DS BID - both have been used for soft tissue infections. With regard to a Gram negative bacteremia, the primary concern is to address the underlying source. It is entirely possible and likely that the standard dose of Bactrim would be sufficient. If there is any difficulty in the patient tolerating 2 DS BID, it can be reduced to 1 DS BID. The rationale for recommending 2 DS PO Bactrim was with regard to serious MRSA infections. 2 DS Bactrim in comparison to vancomycin is suboptimal, and treatment of the MRSA bacteremia should not be attempted with PO Bactrim monotherapy, but it remains a salvage option if she leaves AMA and needs an inexpensive PO option since she also has no insurance. Given how frequently patients with IV drug use leave AMA, I think it is reasonable to make sure she is able to tolerate the higher dose of Bactrim in that event. Duration of therapy for Gram negative bacteremia - increasing evidence suggests that a shorter course 7-10 days is as effective as longer courses 10-14 days, supported by several retrospective cohort studies and an RCT of 7 vs 14 days treatment. For soft tissue infections, the duration of therapy ranges from 5-14 days depending on the severity of the infection, host factors and response to therapy. For Ms. Mar's case, a shorter course of 7 days of Bactrim for the soft tissue infection and GNR bacteremia should be appropriate. She is on day 5 currently of treatment that would address the Gram negative bacteremia and soft tissue infection. Would continue for another 2 days and stop if the neck has minimal or no inflammation and surgical site appears clean and uninfected. For the MRSA bacteremia, assuming no persistent growth in the repeat blood cultures (negative TTE, no metastatic infection), she should complete 14 days of vancomycin, starting from the day of negative blood cultures; again, only in the situation of pt leaving AMA and needing an oral salvage option would I suggest completing treatment for this with PO Bactrim 2 DS BID PO. Christiano Velez MD REPLACED BY [facility] Infectious Diseases pager [phone]
[2018-10-23] MEDS ORDERED: SODIUM CHLORIDE NASAL SPRAY 44 ML NASL SCH (16:00)
--- NOTE | 2018-10-23 16:48 | PDOC PROGRESS REPORT ---
Subjective Progress Note for:: 10/23/18 Subjective:: This is a 27 yr old female with a PMH of IV drug use and CHF from bacterial endocarditis who presented with fever and swelling of the left cervical area. She was found to have and abscess and retained needle fragments on the neck. 10/21: She underwent I&D with removal of retained needle fragments yesterday 10/20. This morning, she appeared comfortable in bed but does report that the morphine regimen she is on is not "cutting it". Denies chest pain or SOB. 10/22: She is asleep upon initial encounter. She says she still has significant pain. 10/23: No acute event overnight. She appears cheerful this morning on encounter. When this provider said she looks much better today, she smiles and says "because I just got the morphine but I'm still having a lot of pain right now" while smiling. Staff has reported patient's boyfriend has been staying in the room and that patient is smoking in the bathroom. Reason For Visit: CELLULITIS WITH ABSCESS LEFT NECK,FOREIGN BODY Physical Exam Vital Signs: Temp Pulse Resp BP Pulse Ox 98.0 F 65 14 138/83 H 100 10/23/18 12:00 10/23/18 12:00 10/23/18 12:00 10/23/18 12:00 10/23/18 12:00 Intake & Output 10/22/18 10/23/18 10/24/18 06:59 06:59 06:59 Intake Total 2861 7754 400 Output Total 1 Balance 2860 7754 400 Weight 133 lb 13.129 oz 140 lb 14.006 oz General appearance: PRESENT: no acute distress, well-developed, well-nourished Head exam: PRESENT: atraumatic, normocephalic, other - dressings in place Eye exam: PRESENT: conjunctiva pink, EOMI, PERRLA. ABSENT: scleral icterus Ear exam: PRESENT: normal external ear exam Mouth exam: PRESENT: moist, tongue midline Neck exam: ABSENT: carotid bruit, JVD, lymphadenopathy, thyromegaly Respiratory exam: PRESENT: clear to auscultation soo. ABSENT: rales, rhonchi, wheezes Cardiovascular exam: PRESENT: RRR. ABSENT: diastolic murmur, rubs, systolic murmur Pulses: PRESENT: normal dorsalis pedis pul GI/Abdominal exam: PRESENT: normal bowel sounds, soft. ABSENT: distended, guarding, mass, organolmegaly, rebound, tenderness Rectal exam: PRESENT: deferred Neurological exam: PRESENT: alert, awake, oriented to person, oriented to place, oriented to time, oriented to situation, CN II-XII grossly intact. ABSENT: motor sensory deficit Results Laboratory Results: 10/21/18 05:15 10/21/18 05:15 10/18/18 04:33 Blood Blood Culture - Final Serratia Marcescens Mrsa (Meth Resis Staph Aureus) 10/18/18 04:15 Blood Blood Culture - Final NO GROWTH IN 5 DAYS Impressions: Chest X-Ray 10/18/18 00:00 IMPRESSION: NO ACUTE FINDINGS. Soft Tissue Neck CT 10/18/18 03:44 IMPRESSION: Abscess of the superficial left neck region, inseparable from the left sternocleidomastoid musculature. There is linear radiopaque foreign body/needle fragment along the inferior aspect of the abscess. There is also a superficial needle fragment associated with the right supraclavicular neck, as above. TECHNICAL DOCUMENTATION: Quality ID # [id number]: Final reports with documentation of one or more dose reduction techniques (e.g., Automated exposure control, adjustment of the mA and/or kV according to patient size, use of iterative reconstruction technique) copyright 2011 [employer]- All Rights Reserved Fluoroscopy 10/20/18 00:00 IMPRESSION: IMAGE(S) OBTAINED DURING PROCEDURE. Guidance Fluoroscopy 10/20/18 00:00 IMPRESSION: SUCCESSFUL PLACEMENT OF A 5 FR DUAL LUMEN 37 CM PICC IN THE LEFT BASILIC VEIN. Interventional Vascular Procedure 10/20/18 00:00 IMPRESSION: SUCCESSFUL PLACEMENT OF A 5 FR DUAL LUMEN 37 CM PICC IN THE LEFT BASILIC VEIN. PICC Line Insertion 10/20/18 00:00 IMPRESSION: SUCCESSFUL PLACEMENT OF A 5 FR DUAL LUMEN 37 CM PICC IN THE LEFT BASILIC VEIN. Soft Tissue Neck X-Ray 10/20/18 00:00 IMPRESSION: IMAGE(S) OBTAINED DURING PROCEDURE. Assessment and Plan - Diagnosis (1) Cellulitis and abscess of neck Is this a current diagnosis for this admission?: Yes Plan: She underwent I&D with removal of retained needle fragments on 10/20. Continue vancomycin and Zosyn for now pending final results of wound and blood cultures. Wound culture growing E. faecalis, MSSA and Klebsiella. Blood culture grew Serratia and MRSA so far. 10/23: Appreciate ID recommendation. Will complete vancomycin for 2 weeks from negative blood cultures. (2) Foreign body of neck with infection Qualifiers: Encounter type: initial encounter Qualified Code(s): S10.95XA - Superficial foreign body of unspecified part of neck, initial encounter; L08.9 - Local infection of the skin and subcutaneous tissue, unspecified Is this a current diagnosis for this admission?: Yes Plan: As per number 1. (3) Gram-negative bacteremia Is this a current diagnosis for this admission?: Yes Plan: As per number 1. (4) Polysubstance abuse Is this a current diagnosis for this admission?: Yes Plan: Counseled on cessation of drug use. She did express she is interested in knowing resources and options for outpatient rehab. (5) Hepatitis C Is this a current diagnosis for this admission?: Yes Plan: She will need outpatient referral to an ID clinic for further eval and elliott tment. - Time Time Spent with patient: 15-24 minutes
[2018-10-23 17:12] VITALS: BP 124/73
[2018-10-23] MEDS: KETOROLAC TROMETHAMINE INJ/PF 30 MG/1 ML SDV IV PRN (17:31)
--- NOTE | 2018-10-23 18:53 | Left Against Medical Advice ---
Against Medical Advice Admission Date/Time: 10/18/18 05:44 Primary Care Provider: Date of Patient Emigration: 10/23/18 - Diagnosis: (1) Cellulitis and abscess of neck Is this a current diagnosis for this admission?: Yes (2) Foreign body of neck with infection Is this a current diagnosis for this admission?: Yes (3) Gram-negative bacteremia Is this a current diagnosis for this admission?: Yes (4) Polysubstance abuse Is this a current diagnosis for this admission?: Yes (5) Hepatitis C Is this a current diagnosis for this admission?: Yes - Summary: Summary: Please see Admission and Progress Notes as well. EMMA BRUSH is a 27 F, who LEFT AGAINST MEDICAL ADVICE. The Patient was admitted on 10/18/18 05:44. Around 5:30 PM, patient expressed she is upset that her morphine is decreased. She has not been in any distress throughout the whole day per staff certified nurse midwife. As mentioned in progress note, patient was very cheerful this morning. Discussed with patient and discussed recommendation to be on IV vancomycin for 2 weeks for optimal treatment of her bacteremia. Discussed the risk of leaving AGAINST MEDICAL ADVICE including further morbidity and . She says she understands this but she is upset that her morphine is being decreased. Discussed that she has been transitioned to oral pain medications and still has standing IV morphine as needed for her breakthrough pain and she verbalized she wants to be on the same previous IV morphine regimen she was on. We will give her a prescription for Bactrim although it has been discussed that outcomes with oral antibiotics will be inferior to IV vancomycin.
== END 2018-10-23 18:35 | disposition left against medical advice (07) | DRG 605 ==
LOC: ER 03:21 → EH 05:44 → 4N 06:20
PROVIDERS: ADMIT Emergency Medicine; ATTEND Emergency Medicine
PROC: 0H94XZX Drainage of Neck Skin, External Approach, Diagnostic (ICD-10-PCS; 2018-10-18)
PROC: 0JC50ZZ Extirpation of Matter from Left Neck Subcutaneous Tissue and Fascia, Open Approach (ICD-10-PCS; 2018-10-20)
PROC: 0JC40ZZ Extirpation of Matter from Right Neck Subcutaneous Tissue and Fascia, Open Approach (ICD-10-PCS; 2018-10-20)
PROC: B5181ZA Fluoroscopy of Superior Vena Cava using Low Osmolar Contrast, Guidance (ICD-10-PCS; 2018-10-20)
PROC: B548ZZA Ultrasonography of Superior Vena Cava, Guidance (ICD-10-PCS; 2018-10-20)
PROC: 02HV33Z Insertion of Infusion Device into Superior Vena Cava, Percutaneous Approach (ICD-10-PCS; principal; 2018-10-20 13:00)
DX: S11.94XA Puncture wound with foreign body of unspecified part of neck, initial encounter (principal); L02.11 Cutaneous abscess of neck; F11.23 Opioid dependence with withdrawal; L03.221 Cellulitis of neck; W45.8XXA Other foreign body or object entering through skin, initial encounter; F17.210 Nicotine dependence, cigarettes, uncomplicated; F14.90 Cocaine use, unspecified, uncomplicated; F12.90 Cannabis use, unspecified, uncomplicated; F11.90 Opioid use, unspecified, uncomplicated; F90.9 Attention-deficit hyperactivity disorder, unspecified type; Z60.2 Problems related to living alone; B96.1 Klebsiella pneumoniae [K. pneumoniae] as the cause of diseases classified elsewhere; I49.8 Other specified cardiac arrhythmias; B19.20 Unspecified viral hepatitis C without hepatic coma; Z16.23 Resistance to quinolones and fluoroquinolones; Z16.39 Resistance to other specified antimicrobial drug; Z88.1 Allergy status to other antibiotic agents; Z91.010 Allergy to peanuts; Z88.8 Allergy status to other drugs, medicaments and biological substances; Z91.048 Other nonmedicinal substance allergy status; Z86.14 Personal history of Methicillin resistant Staphylococcus aureus infection
CPT/HCPCS: 300; 36415; 36569; 70360; 70491; 71045; 76937; 77001; 80048; 80074; 80202; 83735; 84703; 85025; 86701; 87040; 87070; 87075; 87077; 87186; 87205; 87493; 88300; 88305; 88341; 88342; 93005; 93010; 93306; 96365; 96367; 96372; 99284; A6266; J0330; J0696; J1100; J1170; J1642; J1885; J2001; J2270; J2405; J2543; J2704; J3010; J3230; J3370; J3490; J7030; J7050; J7060; J7120; S0164

== ENCOUNTER 2018-10-24 08:23 | Emergency (ER) | payer SELFPAY ==
[2018-10-24 08:33] VITALS: BP 133/86
== END 2018-10-24 09:10 | disposition left against medical advice (07) ==
LOC: ER 08:23
DX: Z53.21 Procedure and treatment not carried out due to patient leaving prior to being seen by health care provider (principal)

== ENCOUNTER 2018-10-25 06:09 | Emergency (ER) | payer SELFPAY ==
--- NOTE | 2018-10-25 08:13 | ER Document Report ---
ED General - General Chief Complaint: Headache Stated Complaint: HEADACHE Time Seen by Provider: 10/25/18 08:09 Mode of Arrival: Ambulatory Information source: Patient Notes: 27-year-old female with migraine headaches, pots, heroin addiction presents with headache that started 1 day prior to arrival. Patient describes the headache as throbbing, aching and located in her forehead. Patient reports that she recently had 2 hypodermic needles removed from her neck by surgery 2 days ago. Stated nausea, vomiting. She admits to photophobia. TRAVEL OUTSIDE OF THE [place] IN LAST 30 DAYS: No - HPI Onset: Yesterday Onset/Duration: Gradual, Persistent Quality of pain: Achy Severity: None Pain Level: 2 Associated symptoms: Headache, Nausea, Vomiting. denies: Body/muscle aches, Chest pain, Nonproductive cough, Productive cough, Diarrhea, Fever, Shortness of breath Exacerbated by: Denies Relieved by: Denies Similar symptoms previously: Yes Recently seen / treated by doctor: Yes - Related Data Allergies/Adverse Reactions: cefaclor [From Ceclor] Allergy (Verified 02/10/18 11:41) naloxone Allergy (Verified 02/10/18 11:41) peanut Allergy (Verified 02/10/18 11:41) red dye [Red Dye] Allergy (Verified 02/10/18 11:41) Past Medical History - General Information source: Patient - Social History Smoking Status: Current Every Day Smoker Cigarette use (# per day): Yes - 14 Smoking Education Provided: Yes - Smoking cessation counseling was provided for 4 minutes at the bedside Frequency of alcohol use: Occasional Drug Abuse: Heroin Lives with: Alone Family History: Other - Heart problems Patient has suicidal ideation: No Patient has homicidal ideation: No - Past Medical History Cardiac Medical History: Reports: Hx Congestive Heart Failure - 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 Denies: Hx Coronary Artery Disease, Hx Heart Attack, Hx Hypertension Pulmonary Medical History: Denies: Hx Asthma, Hx COPD Neurological Medical History: Denies: Hx Seizures Endocrine Medical History: Denies: Hx Diabetes Mellitus Type 1, Hx Diabetes Mellitus Type 2 Renal/ Medical History: Denies: Hx Peritoneal Dialysis GI Medical History: Denies: Hx Cirrhosis, Hx Hepatitis Musculoskeletal Medical History: Denies Hx Arthritis, Denies Hx Fibromyalgia Skin Medical History: Denies Hx Eczema, Denies Hx Psoriasis Psychiatric Medical History: Reports: Hx Attention Deficit Hyperactivity Disorder Infectious Medical History: Denies: Hx Hepatitis Past Surgical History: Reports: Hx Adenoidectomy, Hx Appendectomy, Hx Oral Surgery - [place] Teeth, Hx Tonsillectomy - Immunizations Immunizations up to date: Yes Hx Diphtheria, Pertussis, Tetanus Vaccination: Yes - given today Review of Systems - Review of Systems Constitutional: denies: Fever, Recent illness EENT: denies: Nose congestion, Nose discharge, Throat pain Cardiovascular: denies: Chest pain, Palpitations Respiratory: denies: Cough Gastrointestinal: Nausea, Vomiting Genitourinary: denies: Dysuria Female Genitourinary: Last menstrual period - 2 months prior to arrival Musculoskeletal: denies: Back pain Skin: Lesions - Multiple scabbed lesions consistent with track gonzalez Neurological/Psychological: Headaches. denies: Seizure, Lost consciousness -: Yes All other systems reviewed and negative Physical Exam - Vital signs Vitals: Temp Pulse Resp BP Pulse Ox 98.0 F 66 16 137/85 H 98 10/25/18 06:16 10/25/18 06:16 10/25/18 06:16 10/25/18 06:16 10/25/18 06:16 - Notes Notes: PHYSICAL EXAMINATION: GENERAL: Well-appearing, well-nourished and in no acute distress. HEAD: Atraumatic, normocephalic. EYES: Pupils equal round and reactive to light, extraocular movements intact, conjunctiva are normal. ENT: Nares patent, oropharynx clear without exudates. Moist mucous membranes. NECK: Normal range of motion, supple without lymphadenopathy LUNGS: Breath sounds clear to auscultation bilaterally and equal. No wheezes rales or rhonchi. HEART: Regular rate and rhythm without murmurs ABDOMEN: Soft, nontender, nondistended abdomen. No guarding, no rebound. No masses appreciated. Female : deferred Musculoskeletal: Normal range of motion, no pitting or edema. No cyanosis. NEUROLOGICAL: Cranial nerves grossly intact. Normal speech, normal gait. Normal sensory, motor exams PSYCH: Normal mood, normal affect. SKIN: Warm, Dry, normal turgor, no rashes or lesions noted. Course - Re-evaluation Re-evalutation: 10/25/18 10:36 Presentation of a headache that appears to be most consistent with tension versus migrainous type headache. Headache was not maximal in onset, patient has no focal neurologic deficits, no nuchal rigidity, vital signs within normal limits, no papilledema, and patient is overall well in appearance. Based on clinical history and examination I do not suspect an acute subarachnoid hemorrhage, dural venous sinus thrombosis, acute meningitis, or intercranial mass. Given my low clinical suspicion for any acute life-threatening etiology, I do not feel advanced neuro imaging or laboratory testing is indicated at this time. Will proceed with headache cocktail and reassess. - Vital Signs Vital signs: Temp Pulse Resp BP Pulse Ox 98.0 F 66 16 137/85 H 98 10/25/18 06:16 10/25/18 06:16 10/25/18 06:16 10/25/18 06:16 10/25/18 06:16 - Laboratory Laboratory results interpreted by me: 10/25/18 08:15 Ur Leukocyte Esterase TRACE H Discharge - Discharge Clinical Impression: Headache Qualifiers: Headache type: unspecified Headache chronicity pattern: unspecified pattern Intractability: not intractable Qualified Code(s): R51 - Headache Condition: Good Disposition: HOME, SELF-CARE Instructions: Antinausea Medication ([facility]), Use of Diphenhydramine, Toradol Injection ([facility]) Additional Instructions: You have been seen in the Emergency Department (ED) for a headache. Please use Tylenol (acetaminophen) or Motrin (ibuprofen) as needed for symptoms, but only as written on the box. As we have discussed, please follow up with your primary care doctor as soon as possible regarding today's ED visit and your headache symptoms. Call your doctor or return to the ED if you have a worsening headache, sudden and severe headache, confusion, slurred speech, facial droop, weakness or numbness in any arm or leg, extreme fatigue, or other symptoms that concern you. Forms: Elevated Blood Pressure
[2018-10-25] MEDS ORDERED: ONDANSETRON 4 MG TAB.RAPDIS PO ONE (08:16)
[2018-10-25 08:29] LABS: APPEARANCE,URINE CLOUDY; BILIRUBIN,URINE NEGATIVE (NEGATIVE); COLOR,URINE YELLOW; GLUCOSE, URINE NEGATIVE (NEGATIVE); KETONES,URINE NEGATIVE (NEGATIVE); LEUKOCYTE ESTERASE,URINE TRACE (NEGATIVE); NITRITE,URINE NEGATIVE (NEGATIVE); PROTEIN,URINE NEGATIVE (NEGATIVE); URINE SPECIFIC GRAVITY 1.019; UROBILINOGEN,URINE NEGATIVE mg/dL (<2.0)
[2018-10-25 08:41] LABS: URINE BARBITURATES SCREEN NEGATIVE; URINE BENZODIAZEPINES SCREEN NEGATIVE; URINE COCAINE SCREEN NEGATIVE; URINE MARIJUANA (THC) SCREEN NEGATIVE; URINE METHADONE SCREEN NEGATIVE; URINE PHENCYCLIDINE SCREEN NEGATIVE
[2018-10-25] MEDS ORDERED: METOCLOPRAMIDE HCL INJ/PF 10 MG/2 ML SDV IV ONE (08:59)
[2018-10-25] MEDS ORDERED: KETOROLAC TROMETHAMINE INJ/PF 30 MG/1 ML SDV IV ONE (09:00)
[2018-10-25] MEDS: DIPHENHYDRAMINE HCL 50 MG/ML VIAL IV ONE ×2 (09:10→09:14)
[2018-10-25] MEDS ORDERED: LORAZEPAM INJ 2 MG/1 ML VIAL IV ONE (09:47)
[2018-10-25] MEDS ORDERED: RINGERS SOLUTION,LACTATED 1,000 ML IV ONE (09:55)
[2018-10-25 10:55] VITALS: BP 112/71
== END 2018-10-25 10:58 | disposition home or self-care (01) ==
LOC: ER 06:09
DX: R51 Headache (principal); R11.2 Nausea with vomiting, unspecified; H53.149 Visual discomfort, unspecified; F17.210 Nicotine dependence, cigarettes, uncomplicated; I50.9 Heart failure, unspecified
CPT/HCPCS: 99284; 96361; 96374; 96375; 81025; 81001; 80307; S0119; J1885; J2765; J2060; J7120; J1200

== ENCOUNTER 2018-12-21 03:32 | Emergency (ER) | payer SELFPAY ==
--- NOTE | 2018-12-21 04:04 | ER Document Report ---
ED General - General Chief Complaint: Chest Pain Stated Complaint: CHEST PAIN Time Seen by Provider: 12/21/18 03:51 Primary Care Provider: [facility] [Provider Group] - Follow up tomorrow Notes: Patient is a 28-year-old female that comes to the emergency department for chief complaint of chest pain. Pain started over the past day, is sharp and located in the mid left chest. She also states she feels like she is getting palpitations occasionally. She denies fever/chills, cough, nausea/vomiting, abdominal pain, dizziness. She does have a past medical history of IV drug abuse, mainly heroin, occasionally methamphetamine. Denies using methamphetamine for at least several days. She smokes tobacco. She denies any daily medications. She states she has a history of endocarditis, was hospitalized for this last year. She denies medical history otherwise. TRAVEL OUTSIDE OF THE [place] IN LAST 30 DAYS: No - Related Data Allergies/Adverse Reactions: cefaclor [From Ceclor] Allergy (Verified 02/10/18 11:41) naloxone Allergy (Verified 02/10/18 11:41) peanut Allergy (Verified 02/10/18 11:41) red dye [Red Dye] Allergy (Verified 02/10/18 11:41) Past Medical History - General Information source: Patient - Social History Smoking Status: Current Every Day Smoker Smoking Education Provided: Yes - <3 min Drug Abuse: Heroin, Methamphetamine Lives with: Spouse/Significant other Family History: Other - Heart problems - Past Medical History Cardiac Medical History: Reports: Hx Congestive Heart Failure - 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 Denies: Hx Coronary Artery Disease, Hx Heart Attack, Hx Hypertension Pulmonary Medical History: Denies: Hx Asthma, Hx COPD Neurological Medical History: Denies: Hx Seizures Endocrine Medical History: Denies: Hx Diabetes Mellitus Type 1, Hx Diabetes Mellitus Type 2 Renal/ Medical History: Denies: Hx Peritoneal Dialysis GI Medical History: Denies: Hx Cirrhosis, Hx Hepatitis Musculoskeletal Medical History: Denies Hx Arthritis, Denies Hx Fibromyalgia Skin Medical History: Denies Hx Eczema, Denies Hx Psoriasis Psychiatric Medical History: Reports: Hx Attention Deficit Hyperactivity Disorder Infectious Medical History: Denies: Hx Hepatitis Past Surgical History: Reports: Hx Adenoidectomy, Hx Appendectomy, Hx Oral Surgery - [place] Teeth, Hx Tonsillectomy - Immunizations Immunizations up to date: Yes Hx Diphtheria, Pertussis, Tetanus Vaccination: Yes - given today Review of Systems - Review of Systems Constitutional: No symptoms reported EENT: No symptoms reported Cardiovascular: See HPI Respiratory: See HPI Gastrointestinal: No symptoms reported Genitourinary: No symptoms reported Female Genitourinary: No symptoms reported Musculoskeletal: No symptoms reported Skin: No symptoms reported Hematologic/Lymphatic: No symptoms reported Neurological/Psychological: See HPI Physical Exam - Vital signs Vitals: Temp Pulse Resp BP Pulse Ox 97.5 F 80 16 115/78 98 12/21/18 03:35 12/21/18 03:35 12/21/18 03:35 12/21/18 03:35 12/21/18 03:35 - Notes Notes: GENERAL: Drowsy but spontaneously arouses. Cooperative. No distress. HEAD: Normocephalic, atraumatic. EYES: Pupils equal, round, and reactive to light. Extraocular movements intact. ENT: Oral mucosa moist, tongue midline. Oropharynx unremarkable. Airway patent. Nares patent, no nasal septal hematoma. NECK: Full range of motion. Supple. Trachea midline. LUNGS: Clear to auscultation bilaterally, no wheezes, rales, or rhonchi. No respiratory distress. Reproducible tenderness on palpation of the left mid sternal and rib areas. No erythema, swelling, induration/fluctuance. HEART: Regular rate and rhythm. No murmur ABDOMEN: Soft, non-tender. Non-distended. Bowel sounds present in all 4 quad rants. GENITOURINARY: Deferred EXTREMITIES: Moves all 4 extremities spontaneously. No edema, normal radial and dorsalis pedis pulses bilaterally. No cyanosis. BACK: no cervical, thoracic, lumbar midline tenderness. No saddle anesthesia, normal distal neurovascular exam. Moves all extremities in full range of motion. NEUROLOGICAL: Alert and oriented x3. Normal speech. Cranial nerves II through XII grossly intact. PSYCH: Normal affect, normal mood. SKIN: Multiple healed gonzalez over the extremities Course - Re-evaluation Re-evalutation: Patient admits to using heroin today, she is mildly drowsy but spontaneously arousable. She is coherent, her GCS is 15. Chest x-ray is unremarkable. CBC, chemistry, troponin unremarkable. test is negative. EKG without acute findings. On monitoring patient is not tachycardic significantly, she is not hypoxic. On evaluation she is not in any distress. She has not had a fever. I discussed different options with patient. I discussed different work-up possibilities including CTA of the chest, however after discussion this was declined. Patient has very reproducible chest wall pain, negative work-up, reassuring monitoring. Patient states that she needs to be referred for substance abuse management and possible detox. She declined staying for mental health evaluation by the mental health team today. She denies SI or HI. Information was provided, she states she will follow-up, she states she will return if she worsens in any way. Stable at time of discharge. - Vital Signs Vital signs: Temp Pulse Resp BP Pulse Ox 97.5 F 80 11 L 121/69 98 12/21/18 03:35 12/21/18 03:35 12/21/18 06:00 12/21/18 06:00 12/21/18 06:00 - Laboratory Result Diagrams: 12/21/18 04:20 12/21/18 04:20 Laboratory results interpreted by me: 12/21/18 12/21/18 04:20 04:20 RDW 16.3 H Chloride 108 H - EKG Interpretation by Me Additional EKG results interpreted by me: EKG shows sinus rhythm at a rate of 74, QTC of 431, normal axis. No T wave inversions or ST segment changes in consecutive leads. Discharge - Discharge Clinical Impression: Anxiety, Substance abuse, Chest wall pain Chest pain Qualifiers: Chest pain type: unspecified Qualified Code(s): R07.9 - Chest pain, unspecified Condition: Stable Disposition: HOME, SELF-CARE Additional Instructions: Your work-up does not show any concerning findings at this time. Your evaluation is most consistent with pain coming from your chest wall, this should resolve with time but can take a while. I recommend the anti-inflammatory, heat over the area. Please follow-up closely with [facility] for evaluation/treatment of substance abuse. See referral, call tomorrow. Return to the emergency department for any concerning symptoms including fever, difficulty breathing, passing out, or if something is not right. Prescriptions: Naproxen 375 mg PO BID PRN #20 tablet.dr BAJWA Reason: Referrals: [facility] [Provider Group] - Follow up tomorrow
[2018-12-21 05:02] LABS: HEMATOCRIT 40.3 % (36.0-47.0); HEMOGLOBIN 13.3 g/dL (12.0-15.5); MEAN CORPUSCULAR HEMOGLOBIN 28.5 pg (27.0-33.4); MEAN CORPUSCULAR VOLUME 86 fl (80-97); PLATELET COUNT 283 10^3/uL (150-450); RED BLOOD COUNT 4.67 10^6/uL (3.72-5.28); RED CELL DISTRIBUTION WIDTH 16.3 % (11.5-14.0); WHITE BLOOD COUNT 10.2 10^3/uL (4.0-10.5)
[2018-12-21 05:20] LABS: ABSOLUTE LYMPHOCYTES# (MANUAL) 4.7 10^3/uL (0.5-4.7); ABSOLUTE MONOCYTES # (MANUAL) 0.5 10^3/uL (0.1-1.4); BASOPHILS % (MANUAL) 0 % (0-2); EOSINOPHILS % (MANUAL) 2 % (0-6); LYMPHOCYTES % (MANUAL) 45 % (13-45); MONOCYTES % (MANUAL) 5 % (3-13); SEGMENTED NEUTROPHILS % (MAN) 47 % (42-78); TOTAL CELLS COUNTED 100
[2018-12-21 05:21] LABS: ANION GAP 10 (5-19); ANISOCYTOSIS 1+; BLOOD UREA NITROGEN 17 mg/dL (7-20); CALCIUM 9.3 mg/dL (8.4-10.2); CARBON DIOXIDE 23 mmol/L (22-30); CHLORIDE 108 mmol/L (98-107); GLUCOSE 104 mg/dL (75-110); HYPOCHROMASIA SLIGHT; PLATELET COMMENT ADEQUATE; POIKILOCYTOSIS SLIGHT; SODIUM 140.5 mmol/L (137-145)
--- NOTE | 2018-12-21 05:26 | RADIOLOGY REPORT (SQ) ---
Chest 2 view on 12/21/2018 at 4:52 AM CLINICAL INDICATION: Chest pain COMPARISON: 10/18/2018 FINDINGS: The lungs are clear. Cardiac, hilar and mediastinal contours are within normal limits. Pulmonary vascularity is within normal limits. No acute bony abnormality is noted. There is a probable small osteochondroma along the medial proximal right humerus diaphysis. IMPRESSION: No active disease.
[2018-12-21 06:40] VITALS: BP 121/69
--- NOTE | 2018-12-21 09:31 | EKG REPORT ---
SEVERITY:- BORDERLINE ECG - SINUS RHYTHM NONSPECIFIC ST-T CHANGES ANTERIOR LEADS. : Confirmed by: Jw Wilson MD 21-Dec-2018 09:29:46
== END 2018-12-21 06:20 | disposition home or self-care (01) ==
LOC: ER 03:32
DX: R07.89 Other chest pain (principal); F11.10 Opioid abuse, uncomplicated; F15.10 Other stimulant abuse, uncomplicated; F41.9 Anxiety disorder, unspecified; F17.200 Nicotine dependence, unspecified, uncomplicated; Z23 Encounter for immunization
CPT/HCPCS: 36415; 71046; 80048; 84484; 84703; 85025; 93005; 93010; 99285

== ENCOUNTER 2019-07-11 18:33 | Emergency (ER) | payer SELFPAY ==
[2019-07-11] MEDS ORDERED: NORMAL SALINE 1000 ML 2,000 ML IV ONE (19:00)
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
[2019-07-11] MEDS ORDERED: VANCOMYCIN HCL 0 MG in DEXTROSE 5%-WATER 250 ML IV NR (20:00)
--- NOTE | 2019-07-11 20:02 | RADIOLOGY REPORT (SQ) ---
EXAM DESCRIPTION: CHEST 2 VIEWS COMPLETED DATE/TIME: 07/11/2019 6:32 pm REASON FOR STUDY: chest pain COMPARISON: 12/21/2018 EXAM PARAMETERS: NUMBER OF VIEWS: two views TECHNIQUE: Digital Frontal and Lateral radiographic views of the chest acquired. RADIATION DOSE: NA LIMITATIONS: none FINDINGS: LUNGS AND PLEURA: Patchy ill-defined opacities in the right upper lobe suggestive infiltra te. No pleural effusion or pneumothorax. MEDIASTINUM AND HILAR STRUCTURES: No masses or contour abnormalities. HEART AND VASCULAR STRUCTURES: Heart normal size. No evidence for failure. BONES: No acute findings. HARDWARE: None in the chest. OTHER: No other significant finding. IMPRESSION: Right upper lobe pneumonia. Follow-up to resolution recommended. TECHNICAL DOCUMENTATION: JOB ID: [id number] [employer]- All Rights Reserved Reading location - IP/workstation name: [email or web address]
[2019-07-11] MEDS ORDERED: VANCOMYCIN HCL INJ 1000 MG VIAL IV ONE (20:06)
[2019-07-11] MEDS ORDERED: PIPERACILLIN/TAZOBACTAM 3.375 GM VIAL IV ONE ×2 (20:07→23:49)
[2019-07-11] MEDS ORDERED: NORMAL SALINE 1000 ML 1,000 ML IV ONE (20:09)
--- NOTE | 2019-07-11 20:10 | ER Document Report ---
ED General - General Chief Complaint: Chest Pain Stated Complaint: CHEST PAIN/FEVER/VAGINAL BLEEDING Time Seen by Provider: 07/11/19 18:51 Mode of Arrival: Ambulatory Notes: 28-year-old woman presents to the hospital with history of fever chills, complaint of chest pain tonight. She has a history of IV drug abuse and used heroin approximately 1 hour prior to coming into the emergency department. She was being treated for endocarditis at [facility] in [place] signed herself out AMA. Is unclear whether she completed the medications that she was discharged with. She has been having episodic sweats and fevers over the past 3 to 4 days. She complains of a left-sided chest pain. It was noted that she had a positive test at [facility] TRAVEL OUTSIDE OF THE [place] IN LAST 30 DAYS: No - Related Data Allergies/Adverse Reactions: cefaclor [From Ceclor] Allergy (Verified 02/10/18 11:41) naloxone Allergy (Verified 02/10/18 11:41) peanut Allergy (Verified 02/10/18 11:41) red dye [Red Dye] Allergy (Verified 02/10/18 11:41) Past Medical History - General Information source: Patient - Social History Smoking Status: Current Every Day Smoker Frequency of alcohol use: Occasional Drug Abuse: Heroin, Methamphetamine Family History: Other - Heart problems Patient has suicidal ideation: No Patient has homicidal ideation: No - Past Medical History Cardiac Medical History: Reports: Hx Congestive Heart Failure - 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 Denies: Hx Coronary Artery Disease, Hx Heart Attack, Hx Hypertension Pulmonary Medical History: Denies: Hx Asthma, Hx COPD Neurological Medical History: Denies: Hx Seizures Endocrine Medical History: Denies: Hx Diabetes Mellitus Type 1, Hx Diabetes Mellitus Type 2 Renal/ Medical History: Denies: Hx Peritoneal Dialysis GI Medical History: Denies: Hx Cirrhosis, Hx Hepatitis Musculoskeletal Medical History: Denies Hx Arthritis, Denies Hx Fibromyalgia Skin Medical History: Denies Hx Eczema, Denies Hx Psoriasis Psychiatric Medical History: Reports: Hx Attention Deficit Hyperactivity Disorder Infectious Medical History: Denies: Hx Hepatitis Past Surgical History: Reports: Hx Adenoidectomy, Hx Appendectomy, Hx Oral Surgery - [place] Teeth, Hx Tonsillectomy - Immunizations Immunizations up to date: Yes Hx Diphtheria, Pertussis, Tetanus Vaccination: Yes - given today Review of Systems - Review of Systems Notes: Constitutional: + Fever. HENT: Negative for sore throat. Eyes: Negative for visual changes. Cardiovascular: + Chest pain. Respiratory: Negative for shortness of breath. Gastrointestinal: Negative for abdominal pain, vomiting or diarrhea. Genitourinary: Negative for dysuria. Musculoskeletal: Negative for back pain. Skin: + Fresh tracks. Neurological: Negative for headaches, weakness or numbness. 10 point ROS negative except as marked above and in HPI. Physical Exam - Vital signs Vitals: Temp Pulse Resp BP Pulse Ox 102.4 F H 148 H 18 105/56 L 99 07/11/19 19:26 07/11/19 19:26 07/11/19 19:26 07/11/19 19:26 07/11/19 19:26 - Notes Notes: PHYSICAL EXAMINATION: Physical Exam: General: Well-nourished well-developed 28-year-old female with mild acute distress HEENT: NC/AT, pupils equal round and reactive to light, MM moist,nares clear, oropharynx clear airway patent Neck: supple, no adenopathy, no masses. Lungs: clear, no wheezing, no rales no rhonchi CVS: Tachycardic rate and rhythm no murmur gallop or rub Abdomen: Soft, active, nontender, no masses, no hepatosplenomegaly Ext: No edema, clubbing or cyanosis Neuro: Alert and responsive, moving all 4 extremities on command, cranial nerves intact. Skin: Track gonzalez on left and right upper extremities and also on the anterior left and right neck no open wounds PSYCH: Normal mood, normal affect. Course - Re-evaluation Re-evalutation: 07/12/19 02:56 Sepsis protocol begun, blood cultures x2, lactate, IV fluids and Zosyn 3.375 g IV, vancomycin 1 g IV given in the emergency department patient continued to be hypotensive with a systolic blood pressure of 83, 2-1/2 L of normal saline given IV, patient continued to be hypotensive. Right internal jugular central line was placed and Levophed was ordered. Transfer center at [facility] was contacted and updated regarding the patient's status, the ski binding fitter and repairer has accepted the patient in transfer. - Vital Signs Vital signs: Temp Pulse Resp BP Pulse Ox 98.1 F 148 H 24 H 83/54 L 100 07/12/19 00:32 02/08/20 19:26 07/12/19 01:30 07/12/19 01:30 07/12/19 01:30 - Laboratory Result Diagrams: 07/11/19 20:15 07/11/19 21:25 Laboratory results interpreted by me: 07/11/19 07/11/19 07/11/19 20:15 20:15 21:25 Hgb 11.8 L Hct 34.5 L RDW 15.2 H ESR 55 H VBG pH 7.43 H Sodium 129.5 L Carbon Dioxide 19 L Calcium 8.2 L AST 39 H Creatine Kinase 141 H C-Reactive Protein 182.5 H Albumin 3.2 L Urine Protein Urine Ketones Urine HCG, Qual 07/11/19 07/11/19 23:46 23:46 Hgb Hct RDW ESR VBG pH Sodium Carbon Dioxide Calcium AST Creatine Kinase C-Reactive Protein Albumin Urine Protein 30 H Urine Ketones 20 H Urine HCG, Qual POSITIVE H I have reviewed laboratory data and used this information for the treatment decisions regarding the patient. - Diagnostic Test Radiology reviewed: Image reviewed, Reports reviewed - Chest x-ray radiologic evaluation suggests a right upper lobe pneumonia. - EKG Interpretation by Me Rate: Tachycardia - Sinus tachycardia, rate 136, no acute ST or T wave abnormalities interpretation: Tachycardia otherwise normal EKG. Procedures - Central Line Right Internal jugular Time completed: 02:45 Central line pre-insertion: Sterile PPE donned, Chloraprep applied, Sterile d rapes applied Central line lumen type: Triple Anesthetic type: 1% Lidocaine mL's of anesthesia: 3 Ultrasound guided: Yes - Sterile sheath over the ultrasound probe with a maintenance of a sterile fi Line secured with sutures: Yes Central line post-insertion: Blood return from lumens - All 3 points, Biopatch applied, Sutured, Sterile dressing applied, Position confirmed w/ CXR Number of attempts: 1 Complications: No - Patient tolerated the procedure without complication. Critical Care Note - Critical Care Note Total time excluding time spent on procedures (mins): 60 - Critical care time spent obtaining history from patient or surrogate, discussions with consultants, development of treatment plan with patient or surrogate, evaluation of patient's response to treatment, examination of patient, ordering and performing treatmen ts and interventions, ordering and review of laboratory studies, re-evaluation of patient's condition, ordering and review of radiographic studies and review of old charts Discharge - Discharge Clinical Impression: IV drug abuse Sepsis Qualifiers: Sepsis type: sepsis due to unspecified organism Sepsis acute organ dysfunction status: unspecified Qualified Code(s): A41.9 - Sepsis, unspecified organism Right upper lobe pneumonia Qualifiers: Pneumonia type: due to unspecified organism Qualified Code(s): J18.9 - Pneumonia, unspecified organism Condition: Good Disposition: [facility]
[2019-07-11 20:33] LABS: ABSOLUTE LYMPHOCYTES (AUTO) 1.4 10^3/uL (0.5-4.7); ABSOLUTE MONOCYTES (AUTO) 0.8 10^3/uL (0.1-1.4); ABSOLUTE NEUT (AUTO) 7.5 10^3/uL (1.7-8.2); BASOPHILS % (AUTO) 0.4 % (0-2); HEMATOCRIT 34.5 % (36.0-47.0); HEMOGLOBIN 11.8 g/dL (12.0-15.5); LYMPHOCYTES % (AUTO) 13.9 % (13-45); MEAN CORPUSCULAR HEMOGLOBIN 29.1 pg (27.0-33.4); MEAN CORPUSCULAR HGB CONC 34.2 g/dL (32.0-36.0); MEAN CORPUSCULAR VOLUME 85 fl (80-97); PLATELET COUNT 224 10^3/uL (150-450); RED BLOOD COUNT 4.05 10^6/uL (3.72-5.28); RED CELL DISTRIBUTION WIDTH 15.2 % (11.5-14.0); SEGMENTED NEUTROPHILS % (AUTO) 77.7 % (42-78); TOTAL CELLS COUNTED % (AUTO) 100 %; VENOUS BLOOD BASE EXCESS -0.8 mmol/L; VENOUS BLOOD HCO3 23.1 mmol/L (20-32); VENOUS BLOOD PCO2 35.6 mmHg (35-63); VENOUS BLOOD PH 7.43 (7.30-7.42); WHITE BLOOD COUNT 9.7 10^3/uL (4.0-10.5)
[2019-07-11] MEDS ORDERED: KETOROLAC TROMETHAMINE INJ/PF 30 MG/1 ML SDV IV ONE (20:49)
[2019-07-11] MEDS ORDERED: ACETAMINOPHEN 325 MG TABLET PO ONE (21:07)
[2019-07-11 21:17] LABS: ERYTHROCYTE SEDIMENTATION RATE 55 mm/hr (0-20)
--- NOTE | 2019-07-11 21:21 | EKG REPORT ---
SEVERITY:- OTHERWISE NORMAL ECG - SINUS TACHYCARDIA : Confirmed by: Jessy Vieira MD 11-Jul-2019 21:21:11
[2019-07-11 22:07] LABS: ALBUMIN 3.2 g/dL (3.5-5.0); ALKALINE PHOSPHATASE 85 U/L (38-126); ANION GAP 11 (5-19); ASPARTATE AMINO TRANSFERASE 39 U/L (14-36); BILIRUBIN,DIRECT 0.4 mg/dL (0.0-0.4); BILIRUBIN,TOTAL 0.7 mg/dL (0.2-1.3); BLOOD UREA NITROGEN 13 mg/dL (7-20); CALCIUM 8.2 mg/dL (8.4-10.2); CARBON DIOXIDE 19 mmol/L (22-30); CHLORIDE 100 mmol/L (98-107); CREATINE KINASE 141 U/L (30-135); GLUCOSE 104 mg/dL (75-110); POTASSIUM 3.8 mmol/L (3.6-5.0); TOTAL PROTEIN 6.7 g/dL (6.3-8.2)
[2019-07-11 22:08] LABS: CREATINE KINASE MB 0.77 ng/mL (<4.55)
[2019-07-11 22:14] LABS: TROPONIN I < 0.012 ng/mL
[2019-07-11] MEDS ORDERED: LORAZEPAM INJ 2 MG/1 ML VIAL IV ONE (22:20)
[2019-07-11 22:21] LABS: C-REACTIVE PROTEIN 182.5 mg/L (<10.0)
[2019-07-11 22:22] LABS: A TYPE INFLUENZA AG NEGATIVE (NEGATIVE); B INFLUENZA AG NEGATIVE (NEGATIVE)
[2019-07-11] MEDS ORDERED: IBUPROFEN 800 MG TABLET PO ONE (23:15)
[2019-07-12 00:02] LABS: APPEARANCE,URINE CLOUDY; BILIRUBIN,URINE NEGATIVE (NEGATIVE); GLUCOSE, URINE NEGATIVE (NEGATIVE); KETONES,URINE 20 mg/dL (NEGATIVE); LEUKOCYTE ESTERASE,URINE NEGATIVE (NEGATIVE); NITRITE,URINE NEGATIVE (NEGATIVE); PROTEIN,URINE 30 mg/dL (NEGATIVE); URINE SPECIFIC GRAVITY 1.015; UROBILINOGEN,URINE NEGATIVE mg/dL (<2.0)
[2019-07-12 00:03] LABS: COLOR,URINE DARK YELLOW
[2019-07-12 00:10] LABS: URINE BARBITURATES SCREEN NEGATIVE; URINE BENZODIAZEPINES SCREEN NEGATIVE; URINE COCAINE SCREEN NEGATIVE; URINE METHADONE SCREEN NEGATIVE; URINE PHENCYCLIDINE SCREEN NEGATIVE
[2019-07-12 00:13] LABS: URINE MARIJUANA (THC) SCREEN UNCONFIRMED POSITIVE
[2019-07-12] MEDS ORDERED: DEXTROSE 5%-WATER 250 ML with NOREPINEPHRINE BITARTRATE 4 MG IV PRN ×2 (03:10)
[2019-07-12] MEDS ORDERED: NOREPINEPHRINE BITARTRATE INJ/PF 4 MG/4 ML SDV IV ONE (03:16)
--- NOTE | 2019-07-12 03:16 | RADIOLOGY REPORT (SQ) ---
EXAM DESCRIPTION: XR CHEST 1 VIEW COMPLETED DATE/TME: 07/12/2019 00:00 CLINICAL HISTORY: 28 years, Female, central line placement confirmation COMPARISON: 07/11/2019 chest NUMBER OF VIEWS: 1 TECHNIQUE: Portable chest LIMITATIONS: None. FINDINGS: The heart size is normal. Central venous catheter with the tip likely in the right atrium. Consider retraction by approximately 4 to 5 cm. No pneumothorax. Nodular density right perihilar region. Lungs appear otherwise clear IMPRESSION: Tip of the central line likely in the right atrium. Consider slight retraction as above. copyright 2010 [employer]- All Rights Reserved
[2019-07-12 03:37] VITALS: BP 97/71
== END 2019-07-12 03:50 | disposition short-term general hospital (02) ==
LOC: ER 18:33
PROC: 05HM33Z Insertion of Infusion Device into Right Internal Jugular Vein, Percutaneous Approach (ICD-10-PCS; principal; 2019-07-11)
DX: A41.9 Sepsis, unspecified organism (principal); J18.9 Pneumonia, unspecified organism; F19.10 Other psychoactive substance abuse, uncomplicated; R07.9 Chest pain, unspecified; R50.9 Fever, unspecified; F17.200 Nicotine dependence, unspecified, uncomplicated; Z88.1 Allergy status to other antibiotic agents; Z88.8 Allergy status to other drugs, medicaments and biological substances; I50.9 Heart failure, unspecified
CPT/HCPCS: 93005; 36415; 87040; 82553; 82550; 84702; 83605; 85025; 85652; 81025; 86140; 87077; 80053; 81001; 84484; 80307; 82803; 87804; 87150 ×26; 71046; 71045; 93010; 36556; J1885; J3490; J2060; J7060; J7030 ×2; J3370; J2543; 87186; 96361; 96365; 96367; 96375; 99291

== ENCOUNTER 2019-10-08 11:09 | Inpatient (IN) | payer SELFPAY ==
--- NOTE | 2019-10-08 11:19 | ER Document Report ---
ED General - General Stated Complaint: CHEST PAIN Time Seen by Provider: 10/08/19 11:18 Mode of Arrival: Ambulatory Information source: Patient Notes: Patient is a 28-year-old female presenting to the emergency department chief complaint of chest pain. Patient states that she was seen and transferred to [facility] earlier in the year secondary to endocarditis. Patient states that she left providing prior to completion of treatment she said subsequently she was seen at [facility] and was readmitted also for endocarditis but a family emergency arose and patient once again signed herself out AMA. Patient presents today complaining of continued left-sided chest pain. Patient reports snorting heroin just prior to arrival. Patient states she has not done any IV drugs since being admitted the initial time. Patient denies fevers or chills does report mild nausea no vomiting no diarrhea TRAVEL OUTSIDE OF THE [place] IN LAST 30 DAYS: No - HPI Onset: Other - Patient has had issues for the past 2 months Onset/Duration: Persistent Quality of pain: Achy Severity: Moderate Pain Level: 2 Associated symptoms: Chest pain, Nausea, Weakness. denies: Vomiting Exacerbated by: Movement, Walking, Coughing, Deep breathing Relieved by: Denies Similar symptoms previously: Yes Recently seen / treated by doctor: Yes - Related Data Allergies/Adverse Reactions: cefaclor [From Ceclor] Allergy (Verified 02/10/18 11:41) naloxone Allergy (Verified 02/10/18 11:41) peanut Allergy (Verified 02/10/18 11:41) red dye [Red Dye] Allergy (Verified 02/10/18 11:41) Past Medical History - General Information source: Patient, [facility] Records - Social History Smoking Status: Current Every Day Smoker Cigarette use (# per day): Yes Chew tobacco use (# tins/day): No Smoking Education Provided: Yes Frequency of alcohol use: None Drug Abuse: Heroin Lives with: Family Family History: Reviewed & Not Pertinent, Other - Heart problems Patient has suicidal ideation: No Patient has homicidal ideation: No - Past Medical History Cardiac Medical History: Reports: Hx Congestive Heart Failure - 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, Other - Reported endocarditis, INFANTE Denies: Hx Coronary Artery Disease, Hx Heart Attack, Hx Hypertension Pulmonary Medical History: Reports: Hx Pneumonia Denies: Hx Asthma, Hx COPD Neurological Medical History: Denies: Hx Seizures Endocrine Medical History: Denies: Hx Diabetes Mellitus Type 1, Hx Diabetes Mellitus Type 2 Renal/ Medical History: Denies: Hx Peritoneal Dialysis GI Medical History: Denies: Hx Cirrhosis, Hx Hepatitis Musculoskeletal Medical History: Denies Hx Arthritis, Denies Hx Fibromyalgia Skin Medical History: Denies Hx Eczema, Denies Hx Psoriasis Psychiatric Medical History: Reports: Hx Attention Deficit Hyperactivity Disorder Infectious Medical History: Denies: Hx Hepatitis Past Surgical History: Reports: Hx Adenoidectomy, Hx Appendectomy, Hx Oral Surgery - [place] Teeth, Hx Tonsillectomy - Immunizations Immunizations up to date: Yes Hx Diphtheria, Pertussis, Tetanus Vaccination: Yes - given today Review of Systems - Review of Systems Notes: REVIEW OF SYSTEMS: CONSTITUTIONAL : Denies fever, chills, or sweats. Denies recent illness. EENT: Denies eye, ear, throat, or mouth pain or symptoms. Denies nasal or sinus congestion. CARDIOVASCULAR: Per HPI RESPIRATORY: Denies cough, cold, or chest congestion. Denies shortness of breath, difficulty breathing, or wheezing. GASTROINTESTINAL: Denies abdominal pain. Denies nausea, vomiting, or diarrhea. Denies constipation. GENITOURINARY: Denies difficulty urinating, painful urination, burning, frequency, or blood in urine. MUSCULOSKELETAL: Denies neck or back pain or joint pain or swelling. SKIN: Denies rash or skin lesions. HEMATOLOGIC : Denies easy bruising or bleeding. NEUROLOGICAL: Denies altered mental status or loss of consciousness. Denies headache. Denies weakness or paralysis or loss of use of either side. Denies problems with gait or speech. Denies sensory or motor loss. PSYCHIATRIC: Denies suicidal or homicidal ideations 10 Systems are negative unless otherwise specified above Physical Exam - Vital signs Vitals: Temp 98.2 F 10/08/19 11:45 - Notes Notes: PHYSICAL EXAMINATION: GENERAL: Well-appearing, well-nourished and moderately anxious HEAD: Atraumatic, normocephalic. EYES: Pupils equal round and reactive to light, extraocular movements intact, sclera anicteric, conjunctiva are normal. ENT: nares patent, oropharynx clear without exudates. Moist mucous membranes. NECK: Normal range of motion, supple without lymphadenopathy, no appreciable JVD LUNGS: Lungs clear to auscultation bilaterally and equal. No wheezes rales or rhonchi. HEART: Regular rate and rhythm without appreciable murmurs ABDOMEN: Soft, nontender, normal bowel sounds. No guarding, no rebound. No masses appreciated. EXTREMITIES: Active full range of motion, no pitting or edema. No cyanosis. 2+ pulses x4 NEUROLOGICAL: No focal neurological deficits. Moves all extremities spontaneously and on command. SKIN: Warm, Dry, and intact. Normal turgor, no rashes or lesions noted. Course - Re-evaluation Re-evalutation: 10/08/19 11:50 During intake patient states that she needed pain management. She states while at [facility] she was on a schedule of Dilaudid every 4 hours. I told her that currently we are waiting on laboratory results and I have requested a consultation with cardiology relocation manager. I spoke with Dr. Burgos chiller tender relocation manager who recommends evaluating patient's prior records to include culture and sensitivity of blood work to determine which antibiotics are required for management of the patient's reported endocarditis. I have contacted [facility] and have requested patient's medical records from most recent visit. I was told by nursing staff that the patient already has stated that without receiving pain medications that she would sign out AGAINST MEDICAL ADVICE or just leave. I advised the nursing staff to advise the patient that we are currently working on coming up with a care plan. 10/08/19 19:20 Patient has subsequently relaxed and was agreeable with staying in the ER and allowing laboratory test to be performed. EKG was obtained showing sinus rhythm. Portable chest x-ray demonstrates no significant findings. Laboratory results were reviewed urinalysis/urine drug screen demonstrated positive opiates. Also we were informed from laboratory that there was either too high of a level of amphetamines or that there was some complicating substance in the urine and it could not be resolved. 10/08/19 19:22 Calls were made to [facility] to obtain documentation which I did I have reviewed the documents at great lengths and their recommendation was for the patient to stay until October 21 and receive IV vancomycin 1 g every 8 hours. I went in and spoke with the patient once again because of her history of elopement and asked if she was willing to stay for further evaluation and treatment and patient stated that she was. She states that she is very concerned in regards to her health. I have spoken with the hospitalist who graciously agrees to come down and evaluate the patient for admission. Patient is remained stable while in the emergency department. Patient will be admitted for medical management of history of endocarditis. - Vital Signs Vital signs: Temp Pulse Resp BP Pulse Ox 98.2 F 85 18 130/80 H 100 10/08/19 17:35 10/08/19 17:35 10/08/19 17:35 10/08/19 17:35 10/08/19 17:35 - Laboratory Result Diagrams: 10/08/19 12:04 10/08/19 12:04 Laboratory results interpreted by me: 10/08/19 10/08/19 10/08/19 12:04 12:04 14:45 Hgb 11.2 L Hct 32.5 L RDW 15.0 H Lymph % (Auto) 52.8 H Eos % (Auto) 6.1 H Seg Neutrophils % 33.8 L Sodium 136.5 L ALT 71 H Alkaline Phosphatase 132 H Urine Ketones TRACE H Urine Urobilinogen 2.0 H Ur Leukocyte Esterase TRACE H - Diagnostic Test Radiology reviewed: Reports reviewed - EKG Interpretation by [place] EKG shows normal: Sinus rhythm Rate: Normal Rhythm: NSR When compared to previous EKG there are: Previous EKG unavailable Additional EKG results interpreted by me: 10/08/19 19:20 Repeat EKG performed at 1841 shows sinus tachycardia but otherwise no change in morphology no ST elevation. Discharge - Discharge Clinical Impression: Infective endocarditis Qualifiers: Infective endocarditis organism: bacterial Chronicity: acute Qualified Code(s): I33.0 - Acute and subacute infective endocarditis Chest pain Qualifiers: Chest pain type: unspecified Qualified Code(s): R07.9 - Chest pain, unspecified Condition: Stable Disposition: ADMITTED INPATIENT Admitting Provider: Meron (Hospitalist)
--- NOTE | 2019-10-08 12:02 | RADIOLOGY REPORT (SQ) ---
EXAM DESCRIPTION: CHEST SINGLE VIEW IMAGES COMPLETED DATE/TIME: 10/08/2019 11:50 am REASON FOR STUDY: bed 37 chest pain COMPARISON: 07/12/2019 EXAM PARAMETERS: NUMBER OF VIEWS: One view. TECHNIQUE: Single frontal radiographic view of the chest acquired. RADIATION DOSE: NA LIMITATIONS: None. FINDINGS: LUNGS AND PLEURA: No opacities, masses or pneumothorax. No pleural effusion. MEDIASTINUM AND HILAR STRUCTURES: No masses. Contour normal. HEART AND VASCULAR STRUCTURES: Heart normal in size. Normal vasculature. BONES: No acute findings. HARDWARE: None in the chest. OTHER: No other significant finding. IMPRESSION: NO ACUTE RADIOGRAPHIC FINDING IN THE CHEST. TECHNICAL DOCUMENTATION: JOB ID: [id number] [employer]- All Rights Reserved Reading location - IP/workstation name: [email or web address]
[2019-10-08 12:30] LABS: ABSOLUTE EOSINOPHILS # (AUTO) 0.4 10^3/uL (0.0-0.6); ABSOLUTE LYMPHOCYTES (AUTO) 3.6 10^3/uL (0.5-4.7); ABSOLUTE MONOCYTES (AUTO) 0.5 10^3/uL (0.1-1.4); ABSOLUTE NEUT (AUTO) 2.3 10^3/uL (1.7-8.2); BASOPHILS % (AUTO) 0.6 % (0-2); EOSINOPHILS % (AUTO) 6.1 % (0-6); HEMATOCRIT 32.5 % (36.0-47.0); HEMOGLOBIN 11.2 g/dL (12.0-15.5); LYMPHOCYTES % (AUTO) 52.8 % (13-45); MEAN CORPUSCULAR HEMOGLOBIN 27.4 pg (27.0-33.4); MEAN CORPUSCULAR HGB CONC 34.4 g/dL (32.0-36.0); MEAN CORPUSCULAR VOLUME 80 fl (80-97); MONOCYTES % (AUTO) 6.7 % (3-13); PLATELET COUNT 361 10^3/uL (150-450); RED BLOOD COUNT 4.08 10^6/uL (3.72-5.28); SEGMENTED NEUTROPHILS % (AUTO) 33.8 % (42-78); TOTAL CELLS COUNTED % (AUTO) 100 %; WHITE BLOOD COUNT 6.8 10^3/uL (4.0-10.5)
[2019-10-08 12:51] LABS: ALBUMIN 4.4 g/dL (3.5-5.0); ALKALINE PHOSPHATASE 132 U/L (38-126); ANION GAP 10 (5-19); ASPARTATE AMINO TRANSFERASE 25 U/L (14-36); BILIRUBIN,TOTAL 0.6 mg/dL (0.2-1.3); BLOOD UREA NITROGEN 12 mg/dL (7-20); CALCIUM 9.3 mg/dL (8.4-10.2); CARBON DIOXIDE 25 mmol/L (22-30); CHLORIDE 102 mmol/L (98-107); CREATINE KINASE 57 U/L (30-135); GLUCOSE 93 mg/dL (75-110); POTASSIUM 3.7 mmol/L (3.6-5.0); TOTAL PROTEIN 7.8 g/dL (6.3-8.2)
[2019-10-08 13:04] LABS: CREATINE KINASE MB 0.61 ng/mL (<4.55)
[2019-10-08 13:05] LABS: TROPONIN I < 0.012 ng/mL
--- NOTE | 2019-10-08 13:25 | EKG REPORT ---
SEVERITY:- NORMAL ECG - SINUS RHYTHM : Confirmed by: Jw Wilson MD 08-Oct-2019 13:24:50
[2019-10-08 15:00] LABS: APPEARANCE,URINE SLIGHTLY-CLOUDY; BILIRUBIN,URINE NEGATIVE (NEGATIVE); COLOR,URINE YELLOW; GLUCOSE, URINE NEGATIVE (NEGATIVE); KETONES,URINE TRACE mg/dL (NEGATIVE); LEUKOCYTE ESTERASE,URINE TRACE (NEGATIVE); NITRITE,URINE NEGATIVE (NEGATIVE); PROTEIN,URINE NEGATIVE (NEGATIVE)
[2019-10-08 15:24] LABS: URINE BARBITURATES SCREEN NEGATIVE; URINE BENZODIAZEPINES SCREEN NEGATIVE; URINE COCAINE SCREEN NEGATIVE; URINE MARIJUANA (THC) SCREEN NEGATIVE; URINE METHADONE SCREEN NEGATIVE; URINE PHENCYCLIDINE SCREEN NEGATIVE
[2019-10-08] MEDS ORDERED: NORMAL SALINE 1000 ML 1,000 ML IV PRN (18:54)
[2019-10-08] MEDS ORDERED: DIPHENHYDRAMINE HCL 25 MG CAPSULE PO PRN (19:00)
--- NOTE | 2019-10-08 19:13 | PDOC H&P ---
History of Present Illness Patient complains of: Left chest pain. Myalgias. History of Present Illness: EMMA BRUSH is a 28 year old female with a history of endocarditis, pleurisy, IV drug abuse, who presents to the hospital with complaints of chest pain involving her left rib cage. Also complains of myalgias. States this has been going on for the past few weeks. Of note patient was recently at [facility] where she was treated for MRSA tricuspid valve endocarditis. She had initially been admitted on September 07, 2019 and received IV vancomycin after which she was transitioned to IV linezolid. She left AMA on 10/03/2019. CRP at that time was 42. Patient's and day of treatment had been estimated to be 10/22/2019. States that she left because she had an emergency at home. Noted that she did heroin after leaving for home. Stated that she has had some fever at home but took a Tylenol this morning. Troponins negative x2. EKG shows no evidence of new ischemia. Referred to hospitalist service for completion of endocarditis treatment. 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, Other - Reported endocarditis INFANTE Denies: Coronary Artery Disease, Myocardial Infarction, Hypertension Pulmonary Medical History: Reports: Pneumonia Denies: Asthma, Chronic Obstructive Pulmonary Disease (COPD) Neurological Medical History: Denies: Seizures Endocrine Medical History: Denies: Diabetes Mellitus Type 1, Diabetes Mellitus Type 2 GI Medical History: Denies: Cirrhosis, Hepatitis Musculoskeltal Medical History: Denies: Arthritis, Fibromyalgia Skin Medical History: Denies: Eczema, Psoriasis Psychiatric Medical History: Reports: Attention Deficit Hyperactivity Disorder Hematology: Denies: Anemia, Bleeding Tendencies Past Surgical History Past Surgical History: Reports: Adenoidectomy, Appendectomy, Tonsillectomy Social History Lives with: Family Smoking Status: Current Every Day Smoker Frequency of Alcohol Use: Occasional Hx Recreational Drug Use: Yes Drugs: Cocaine, Heroin, Marijuana Hx Prescription Drug Abuse: No - Advance Directive Resuscitation Status: Full Code Family History Family History: Other - Heart problems Parental Family History Reviewed: Yes Children Family History Reviewed: NA Sibling(s) Family History Reviewed.: NA Medication/Allergy Home Medications: Naproxen 375 mg PO BID PRN #20 tablet. 12/21/18 Allergies/Adverse Reactions: cefaclor [From [facility]] Allergy (Verified 02/10/18 11:41) naloxone Allergy (Verified 02/10/18 11:41) peanut Allergy (Verified 02/10/18 11:41) red dye [Red Dye] Allergy (Verified 02/10/18 11:41) Review of Systems Constitutional: PRESENT: chills, fatigue, fever(s) Eyes: ABSENT: visual disturbances Nose, Mouth, and Throat: PRESENT: headache(s) Cardiovascular: PRESENT: chest pain Respiratory: PRESENT: cough, dyspnea Gastrointestinal: ABSENT: nausea, vomiting Musculoskeletal: PRESENT: back pain Integumentary: PRESENT: diaphoresis Neurological: ABSENT: confusion Psychiatric: PRESENT: anxiety Endocrine: ABSENT: polyuria Physical Exam Vital Signs: Temp Pulse Resp BP Pulse Ox 98.2 F 85 18 130/80 H 100 10/08/19 17:35 10/08/19 17:35 10/08/19 17:35 10/08/19 17:35 10/08/19 17:35 Intake & Output 10/07/19 10/08/19 10/09/19 06:59 06:59 06:59 Weight 56.9 kg General appearance: PRESENT: no acute distress, cooperative Head exam: PRESENT: normocephalic Eye exam: PRESENT: EOMI Neck exam: ABSENT: JVD Respiratory exam: PRESENT: chest wall tenderness, clear to auscultation soo, unlabored. ABSENT: crackles, wheezes Cardiovascular exam: PRESENT: RRR, +S1, +S2. ABSENT: tachycardia GI/Abdominal exam: PRESENT: soft. ABSENT: tenderness Extremities exam: ABSENT: pedal edema Musculoskeletal exam: PRESENT: ambulatory Neurological exam: PRESENT: alert, awake Psychiatric exam: PRESENT: agitated, anxious Focused psych exam: ABSENT: pressured speech Skin exam: ABSENT: jaundice Results Laboratory Results: 10/08/19 12:04 10/08/19 12:04 10/08/19 10/08/19 10/08/19 12:04 12:04 12:15 WBC 6.8 RBC 4.08 Hgb 11.2 L Hct 32.5 L MCV 80 MCH 27.4 MCHC 34.4 RDW 15.0 H Plt Count 361 Seg Neutrophils % 33.8 L Sodium 136.5 L Potassium 3.7 Chloride 102 Carbon Dioxide 25 Anion Gap 10 BUN 12 Creatinine 0.62 Est GFR ( Amer) > 60 Glucose 93 Lactic Acid 1.0 Calcium 9.3 Total Bilirubin 0.6 AST 25 Alkaline Phosphatase 132 H Total Protein 7.8 Albumin 4.4 Urine Color Urine Appearance Urine pH Ur Specific [place] Urine Protein Urine Glucose (UA) Urine Ketones Urine Blood Urine Nitrite Ur Leukocyte Esterase Urine WBC (Auto) Urine RBC (Auto) 10/08/19 14:45 WBC RBC Hgb Hct MCV MCH MCHC RDW Plt Count Seg Neutrophils % Sodium Potassium Chloride Carbon Dioxide Anion Gap BUN Creatinine Est GFR ( Amer) Glucose Lactic Acid Calcium Total Bilirubin AST Alkaline Phosphatase Total Protein Albumin Urine Color YELLOW Urine Appearance SLIGHTLY-CLOUDY Urine pH 6.0 Ur Specific [place] 1.020 Urine Protein NEGATIVE Urine Glucose (UA) NEGATIVE Urine Ketones TRACE H Urine Blood NEGATIVE Urine Nitrite NEGATIVE Ur Leukocyte Esterase TRACE H Urine WBC (Auto) 17 Urine RBC (Auto) 1 10/08/19 10/08/19 10/08/19 12:04 12:04 14:58 Creatine Kinase 57 CK-MB (CK-2) 0.61 Troponin I < 0.012 < 0.012 Impressions: Chest X-Ray 10/08/19 11:15 IMPRESSION: NO ACUTE RADIOGRAPHIC FINDING IN THE CHEST. Assessment and Plan - Diagnosis (1) Infective endocarditis Qualifiers: Infective endocarditis organism: bacterial Chronicity: acute Qualified Code(s): I33.0 - Acute and subacute infective endocarditis Is this a current diagnosis for this admission?: Yes Plan: Started treatment for tricuspid endocarditis secondary to IVDA at [facility] on 09/07/2019 with planned completion of 10/22/2019 Monitor CRP. Last CRP on 10/03/2019 was 42. We will continue on linezolid IV. Follow-up blood cultures and echocardiogram. Claims she does have a fever at home. Rule out COVID-19. (2) IV drug abuse Is this a current diagnosis for this admission?: Yes Plan: Abuses heroine and methamphetamines. Will monitor closely for withdrawal. Clonidine twice daily. Avoid narcotics. (3) POTS (postural orthostatic tachycardia syndrome) Is this a current diagnosis for this admission?: Yes Plan: IV fluids. Will monitor. - Time Time Spent with patient: 35 or more minutes
[2019-10-08] MEDS: KETOROLAC TROMETHAMINE INJ/PF 30 MG/1 ML SDV IV PRN (20:00)
[2019-10-08] MEDS: TRAMADOL HCL 50 MG TABLET PO PRN (21:12)
[2019-10-08] MEDS: CLONIDINE HCL 0.1 MG TABLET PO SCH (22:02)
[2019-10-08] MEDS: ACETAMINOPHEN 325 MG TABLET PO PRN (22:03)
[2019-10-08] MEDS: LINEZOLID 600 MG/300 ML RTUPB IV SCH (22:03)
[2019-10-09] MEDS: KETOROLAC TROMETHAMINE INJ/PF 30 MG/1 ML SDV IV PRN ×2 (03:40→10:32)
[2019-10-09 06:18] LABS: ABSOLUTE EOSINOPHILS # (AUTO) 0.3 10^3/uL (0.0-0.6); ABSOLUTE LYMPHOCYTES (AUTO) 2.6 10^3/uL (0.5-4.7); ABSOLUTE MONOCYTES (AUTO) 0.5 10^3/uL (0.1-1.4); ABSOLUTE NEUT (AUTO) 3.5 10^3/uL (1.7-8.2); BASOPHILS % (AUTO) 0.6 % (0-2); EOSINOPHILS % (AUTO) 3.7 % (0-6); HEMATOCRIT 30.7 % (36.0-47.0); HEMOGLOBIN 10.5 g/dL (12.0-15.5); LYMPHOCYTES % (AUTO) 37.4 % (13-45); MEAN CORPUSCULAR HEMOGLOBIN 27.5 pg (27.0-33.4); MEAN CORPUSCULAR HGB CONC 34.3 g/dL (32.0-36.0); MEAN CORPUSCULAR VOLUME 80 fl (80-97); MONOCYTES % (AUTO) 7.7 % (3-13); PLATELET COUNT 386 10^3/uL (150-450); RED BLOOD COUNT 3.84 10^6/uL (3.72-5.28); RED CELL DISTRIBUTION WIDTH 14.8 % (11.5-14.0); SEGMENTED NEUTROPHILS % (AUTO) 50.6 % (42-78); TOTAL CELLS COUNTED % (AUTO) 100 %; WHITE BLOOD COUNT 6.9 10^3/uL (4.0-10.5)
[2019-10-09 06:41] LABS: ANION GAP 6 (5-19); BLOOD UREA NITROGEN 14 mg/dL (7-20); CALCIUM 9.4 mg/dL (8.4-10.2); CARBON DIOXIDE 24 mmol/L (22-30); CHLORIDE 108 mmol/L (98-107); GLUCOSE 113 mg/dL (75-110); POTASSIUM 4.4 mmol/L (3.6-5.0)
[2019-10-09 06:56] LABS: ERYTHROCYTE SEDIMENTATION RATE 35 mm/hr (0-20)
[2019-10-09] MEDS: ACETAMINOPHEN 325 MG TABLET PO PRN (08:15)
[2019-10-09 08:48] VITALS: BP 113/82
[2019-10-09] MEDS ORDERED: ENOXAPARIN SODIUM INJ 40 MG/0.4 ML DISP.SYRIN SUBCUT SCH (10:00)
[2019-10-09] MEDS: CLONIDINE HCL 0.1 MG TABLET PO SCH (10:31)
[2019-10-09] MEDS: TRAMADOL HCL 50 MG TABLET PO PRN (10:33)
[2019-10-09] MEDS ORDERED: LIDOCAINE 5% (700 MG) TRANSDERMAL ADH..PATCH TP SCH (11:00)
[2019-10-09] MEDS: LINEZOLID 600 MG/300 ML RTUPB IV SCH (11:07)
--- NOTE | 2019-10-09 12:21 | PDOC PROGRESS REPORT ---
Subjective Progress Note for:: 10/09/19 Subjective:: Patient was very adamant about receiving Dilaudid on morphine as well as OxyContin for treatment of her pain. I asked her to describe the location of her pain and she states that he hurts all over. I asked her to be more specific about where it hurts the most and she states her chest especially when she takes a deep breath. She continues to insinuate that she has history of pleurisy. I have recommended to patient that she will benefit more from NSAIDs for treatment of this condition and I have her on Toradol. I have offered to increase the dose of Toradol but she has declined. I also have her on tramadol, Tylenol and have offered patient a lidocaine patch but she continues to refuse stating that those do not work for her and that she needs narcotics to control her pain. I declined issuance of narcotics as have not seen any findings on the imaging s tudies nor on physical examination that warrants the use of narcotic medication for pain control. I have also offered to treat patient's withdrawal if she does start experiencing opiate/opioid withdrawal and she is already currently on clonidine but it is inappropriate to treat such by administration more opioid medications. As such she has threatened to go AMA. I have explained the risks to the patient. Reason For Visit: POSSIBLE ENDOCARDITIS Physical Exam Vital Signs: Temp Pulse Resp BP Pulse Ox 97.9 F 79 16 113/82 99 10/09/19 07:22 10/09/19 07:22 10/09/19 07:22 10/09/19 07:22 10/09/19 07:22 Intake & Output 10/08/19 10/09/19 10/10/19 06:59 06:59 06:59 Intake Total 765 Output Total 300 Balance 465 Weight 55.2 kg General appearance: PRESENT: no acute distress, thin. ABSENT: cooperative, hard of hearing, obese Head exam: PRESENT: normocephalic Mouth exam: PRESENT: neck supple Respiratory exam: PRESENT: symmetrical, unlabored. ABSENT: accessory muscle use, retraction, tachypnea Neurological exam: PRESENT: alert, awake, oriented to person, oriented to situation Psychiatric exam: PRESENT: agitated, anxious Focused psych exam: ABSENT: delusional, internal stimuli Skin exam: ABSENT: jaundice Results Laboratory Results: 10/09/19 05:10/09/19 05:20 10/08/19 10/08/19 10/08/19 12:04 12:04 12:15 WBC 6.8 RBC 4.08 Hgb 11.2 L Hct 32.5 L MCV 80 MCH 27.4 MCHC 34.4 RDW 15.0 H Plt Count 361 Seg Neutrophils % 33.8 L Sodium 136.5 L Potassium 3.7 Chloride 102 Carbon Dioxide 25 Anion Gap 10 BUN 12 Creatinine 0.62 Est GFR ( Amer) > 60 Glucose 93 Lactic Acid 1.0 Calcium 9.3 Total Bilirubin 0.6 AST 25 Alkaline Phosphatase 132 H Total Protein 7.8 Albumin 4.4 Urine Color Urine Appearance Urine pH Ur Specific [place] Urine Protein Urine Glucose (UA) Urine Ketones Urine Blood Urine Nitrite Ur Leukocyte Esterase Urine WBC (Auto) Urine RBC (Auto) 10/08/19 10/09/19 10/09/19 14:45 05: 05:20 WBC 6.9 RBC 3.84 Hgb 10.5 L Hct 30.7 L MCV 80 MCH 27.5 MCHC 34.3 RDW 14.8 H Plt Count 386 Seg Neutrophils % 50.6 Sodium 138.2 Potassium 4.4 Chloride 108 H Carbon Dioxide 24 Anion Gap 6 BUN 14 Creatinine 0.62 Est GFR ( Amer) > 60 Glucose 113 H Lactic Acid Calcium 9.4 Total Bilirubin AST Alkaline Phosphatase Total Protein Albumin Urine Color YELLOW Urine Appearance SLIGHTLY-CLOUDY Urine pH 6.0 Ur Specific [place] 1.020 Urine Protein NEGATIVE Urine Glucose (UA) NEGATIVE Urine Ketones TRACE H Urine Blood NEGATIVE Urine Nitrite NEGATIVE Ur Leukocyte Esterase TRACE H Urine WBC (Auto) 17 Urine RBC (Auto) 1 10/08/19 10/08/19 10/08/19 12:04 12:04 14:58 Creatine Kinase 57 CK-MB (CK-2) 0.61 Troponin I < 0.012 < 0.012 Impressions: Chest X-Ray 10/08/19 11:15 IMPRESSION: NO ACUTE RADIOGRAPHIC FINDING IN THE CHEST. Assessment and Plan - Diagnosis (1) Infective endocarditis Qualifiers: Infective endocarditis organism: bacterial Chronicity: acute Qualified Code(s): I33.0 - Acute and subacute infective endocarditis Is this a current diagnosis for this admission?: Yes Plan: Started treatment for tricuspid endocarditis secondary to IVDA at [facility] on 09/07/2019 with planned completion of 10/22/2019 Last CRP on 10/03/2019 was 42. CRP seems to be a lot better now. linezolid IV. Follow-up blood cultures and echocardiogram. negative COVID-19. Patient threatened to leave AMA. (2) IV drug abuse Is this a current diagnosis for this admission?: Yes Plan: Abuses heroine and methamphetamines. Will monitor closely for withdrawal. Clonidine twice daily. Avoid narcotics. Pain control with non-opioid meds. (3) POTS (postural orthostatic tachycardia syndrome) Is this a current diagnosis for this admission?: Yes - Plan Summary Summary: Patient was very adamant about receiving Dilaudid on morphine as well as OxyContin for treatment of her pain. I asked her to describe the location of her pain and she states that he hurts all over. I asked her to be more specific about where it hurts the most and she states her chest especially when she takes a deep breath. She continues to insinuate that she has history of pleurisy. I have recommended to patient that she will benefit more from NSAIDs for treatment of this condition and I have her on Toradol. I have offered to increase the dose of Toradol but she has declined. I also have her on tramadol, Tylenol and have offered patient a lidocaine patch but she continues to refuse stating that those do not work for her and that she needs narcotics to control her pain. I declined issuance of narcotics as have not seen any findings on the imaging studies nor on physical examination that warrants the use of narcotic medication for pain control. I have also offered to treat patient's withdrawal if she does start experiencing opiate/opioid withdrawal and she is already currently on clonidine but it is inappropriate to treat such by administration more opioid medications. As such she has threatened to go AMA. I have explained the risks to the patient. - Time Time Spent with patient: Less than 15 minutes
--- NOTE | 2019-10-09 12:21 | Left Against Medical Advice ---
Against Medical Advice Admission Date/Time: 10/08/19 19:27 Primary Care Provider: Date of Patient Emigration: 10/09/19 - Diagnosis: (1) Infective endocarditis Is this a current diagnosis for this admission?: Yes (2) IV drug abuse Is this a current diagnosis for this admission?: Yes (3) POTS (postural orthostatic tachycardia syndrome) Is this a current diagnosis for this admission?: Yes - Summary: Summary: Please see Admission and Progress Notes as well. EMMA BRUSH is a 28 F, who LEFT AGAINST MEDICAL ADVICE. The Patient was admitted on 10/08/19 19:27. Referred to progress note today.
== END 2019-10-09 11:00 | disposition left against medical advice (07) | DRG 290 ==
LOC: ER 11:09 → EH 19:27 → 4N 23:15
PROVIDERS: ADMIT Internal Medicine; ATTEND Internal Medicine
DX: I33.0 Acute and subacute infective endocarditis (principal); I49.8 Other specified cardiac arrhythmias; F90.9 Attention-deficit hyperactivity disorder, unspecified type; F41.9 Anxiety disorder, unspecified; F14.90 Cocaine use, unspecified, uncomplicated; F12.90 Cannabis use, unspecified, uncomplicated; F11.10 Opioid abuse, uncomplicated; F15.10 Other stimulant abuse, uncomplicated; F17.210 Nicotine dependence, cigarettes, uncomplicated; Z79.899 Other long term (current) drug therapy; Z88.8 Allergy status to other drugs, medicaments and biological substances; Z88.1 Allergy status to other antibiotic agents; Z91.02 Food additives allergy status; Z91.010 Allergy to peanuts
CPT/HCPCS: 36415; 71045; 80048; 80053; 80307; 81001; 82550; 82553; 83605; 84484; 85025; 85652; 86141; 87040; 87635; 93005; 93010; 99285; J1885; J2020; J7030

== ENCOUNTER 2019-12-30 17:00 | Emergency (ER) | payer SELFPAY ==
--- NOTE | 2019-12-30 17:45 | ER Document Report ---
ED Medical Screen (RME) - General Chief Complaint: Other Stated Complaint: HYPERDERMIC NEEDLE IN NECK Notes: I observed the patient in the lobby patient states she was shooting up in her neck she has a hypodermic needle stuck in her neck she did respond to tactile stimuli as she was sleeping when I went out there with snoring respirations. I immediately alerted the charge nurse myself who is Abby at [phone] that this patient needed to be placed in the bed immediately TRAVEL OUTSIDE OF THE [place] IN LAST 30 DAYS: No - Related Data Allergies/Adverse Reactions: cefaclor [From Ceclor] Allergy (Verified 02/10/18 11:41) naloxone Allergy (Verified 02/10/18 11:41) peanut Allergy (Verified 02/10/18 11:41) red dye [Red Dye] Allergy (Verified 02/10/18 11:41) Past Medical History - Past Medical History Cardiac Medical History: Reports: Hx Congestive Heart Failure - 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 Denies: Hx Coronary Artery Disease, Hx Heart Attack, Hx Hypertension Pulmonary Medical History: Reports: Hx Pneumonia Denies: Hx Asthma, Hx COPD Neurological Medical History: Denies: Hx Seizures Endocrine Medical History: Denies: Hx Diabetes Mellitus Type 1, Hx Diabetes Mellitus Type 2 Renal/ Medical History: Denies: Hx Peritoneal Dialysis GI Medical History: Denies: Hx Cirrhosis, Hx Hepatitis Musculoskeltal Medical History: Denies Hx Arthritis, Denies Hx Fibromyalgia Skin Medical History: Denies Hx Eczema, Denies Hx Psoriasis Psychiatric Medical History: Reports: Hx Attention Deficit Hyperactivity Disorder Denies: Hx Depression Infectious Medical History: Denies: Hx Hepatitis Past Surgical History: Reports: Hx Adenoidectomy, Hx Appendectomy, Hx Oral Surgery - [place]eth, Hx Tonsillectomy - Immunizations Immunizations up to date: Yes Hx Diphtheria, Pertussis, Tetanus Vaccination: Yes - given today Physical Exam - Vital signs Vitals: Temp Pulse Resp BP Pulse Ox 98.1 F 88 16 97/62 L 99 12/30/19 17:33 12/30/19 17:33 12/30/19 17:33 12/30/19 17:33 12/30/19 17:33 Course - Vital Signs Vital signs: Temp Pulse Resp BP Pulse Ox 98.1 F 88 16 97/62 L 99 12/30/19 17:33 12/30/19 17:33 12/30/19 17:33 12/30/19 17:33 12/30/19 17:33
--- NOTE | 2019-12-30 18:12 | ER Document Report ---
ED General - General Chief Complaint: Foreign Body Stated Complaint: HYPERDERMIC NEEDLE IN NECK Time Seen by Provider: 12/30/19 18:00 TRAVEL OUTSIDE OF THE [place] IN LAST 30 DAYS: No - HPI Notes: Chief complaint: Hypodermic needle broke off in neck while injecting drugs History of present illness: 29-year-old homeless female with longstanding history of IV heroin abuse and several prior admissions to this hospital related for complications of this now presents the emergency department reporting that s he was injecting heroin in her neck about 1 hour ago when she believes a hypodermic needle broke off in the neck. She states she is previously had an abscess in her neck under similar circumstances. She denies any neurologic symptoms. She denies any fever or chills. She has minimal discomfort at the site of injection. No other new complaints this time. I went back and reviewed [facility] records on this patient see that she has a history of hepatitis C and she has been treated for MRSA endocarditis of the tricuspid valve previously. She is also signed out AMA from the hospital on several occasions. She says she is been to detox multiple times. She has no interest in detox at this time. She denies any auditory visual hallucinations. She denies any suicidal or homicidal intent. Says she is consumed a lot of alcohol in the past but denies current consumption of alcohol. She denies using any drugs other than heroin at this time. Patient has had a tetanus booster within the last 5 years. She is currently taking no prescription medications. SHE REPORTS A HISTORY OF ANAPHYLACTIC REACTION TO NALOXONE. She also reports history of allergy to cefaclor. - Related Data Allergies/Adverse Reactions: cefaclor [From Ceclor] Allergy (Verified 02/10/18 11:41) naloxone Allergy (Verified 02/10/18 11:41) peanut Allergy (Verified 02/10/18 11:41) red dye [Red Dye] Allergy (Verified 02/10/18 11:41) Past Medical History - General Information source: Patient, [facility] Records - Social History Smoking Status: Current Every Day Smoker Frequency of alcohol use: Social Drug Abuse: Heroin Family History: Reviewed & Not Pertinent, Other - Heart problems Patient has homicidal ideation: No - Past Medical History Cardiac Medical History: Reports: Hx Congestive Heart Failure - 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, Other - Bacterial endocarditis Denies: Hx Coronary Artery Disease, Hx Heart Attack, Hx Hypertension Pulmonary Medical History: Reports: Hx Pneumonia Denies: Hx Asthma, Hx COPD Neurological Medical History: Denies: Hx Seizures Endocrine Medical History: Denies: Hx Diabetes Mellitus Type 1, Hx Diabetes Mellitus Type 2 Renal/ Medical History: Denies: Hx Peritoneal Dialysis Malignancy Medical History: Reports: None GI Medical History: Reports: Hx Hepatitis - Hepatitis C. Denies: Hx Cirrhosis Musculoskeletal Medical History: Denies Hx Arthritis, Denies Hx Fibromyalgia Skin Medical History: Denies Hx Eczema, Denies Hx Psoriasis Psychiatric Medical History: Reports: Hx Attention Deficit Hyperactivity Disorder Denies: Hx Depression Infectious Medical History: Denies: Hx Hepatitis Past Surgical History: Reports: Hx Adenoidectomy, Hx Appendectomy, Hx Oral Surgery - [place] Teeth, Hx Tonsillectomy - Immunizations Immunizations up to date: Yes Hx Diphtheria, Pertussis, Tetanus Vaccination: Yes - given today Review of Systems - Review of Systems Notes: Constitutional: Negative for fever. HENT: Negative for sore throat. Eyes: Negative for visual changes. Cardiovascular: Negative for chest pain. Respiratory: Negative for shortness of breath. Gastrointestinal: Negative for abdominal pain, vomiting or diarrhea. Genitourinary: Negative for dysuria. Musculoskeletal: Negative for back pain. Skin: Negative for rash. Neurological: Negative for headaches, weakness or numbness. 10 point ROS negative except as marked above and in HPI. Physical Exam - Vital signs Vitals: Temp Pulse Resp BP Pulse Ox 98.1 F 88 16 97/62 L 99 12/30/19 17:33 12/30/19 17:33 12/30/19 17:33 12/30/19 17:33 12/30/19 17:33 - Notes Notes: GENERAL: Slender female approximately stated age appearing in no acute distress. SKIN: Good turgor no rashes. HEAD: Normocephalic atraumatic. EYES: PERRLA. EOMI. Conjunctivae and sclerae clear. EARS: CANALS AND TMS CLEAR. NOSE: CLEAR. MOUTH: Moist mucosa. Good dentition. No stridor or edema. No drooling. NECK: Multiple needle tracks over anterior neck area. She has some mild tenderness over the left internal jugular area. I am unable to palpate any mass superficially. Supple. No masses or thyromegaly. No adenopathy. Carotids 2+ without bruits. No JVD. BACK: Symmetrical without tenderness. CHEST: Respirations unlabored. Breath sounds clear and symmetrical. HEART: Regular rhythm. No murmur gallop or rub. ABDOMEN: Soft nontender without masses, organomegaly or rebound. Bowel sounds normally active. No bruits. GENITALIA: Deferred. EXTREMITIES: Multiple needle tracks of both upper extremities and lower extremities. No edema. No calf tenderness. Cap refill less than 1.5 seconds. Dorsalis pedis and posterior tibial pulses 3+ and symmetrical. NEUROLOGICAL: GCS 15. Alert and oriented x3. Normal gait. Fluent speech. Cranial nerves II through XII intact. Sensorimotor and cerebellar normal. Normal tone. PSYCHIATRIC: Appropriate affect. Course - Re-evaluation Re-evalutation: 12/30/19 23:17 This lady presented telling me that she had broken a needle off in her neck when she was injecting herself with heroin. She had a lot of old tracks present on her neck and all of her extremities but I was not able to palpate any foreign body. I subsequently did soft tissue x-rays of the neck and chest and did not demonstrate any foreign bodies. Her urine was positive for THC, opiates, cocaine and amphetamine. Patient eloped from the department before disposition could be completed. - Vital Signs Vital signs: Temp Pulse Resp BP Pulse Ox 98.1 F 88 17 100/69 98 12/30/19 17:33 12/30/19 17:33 12/30/19 22:00 12/30/19 18:00 12/30/19 22:00 - Laboratory Result Diagrams: 12/30/19 17:59 12/30/19 17:59 Laboratory results interpreted by me: 12/30/19 12/30/19 12/30/19 17:59 17:59 22:38 MCV 75 L MCH 24.8 L RDW 17.7 H Monocytes % (Manual) 0 L Abs Monocytes (Manual) 0.0 L Glucose 133 H Total Protein 8.8 H Urine Urobilinogen 2.0 H Leukocyte Esterase Rfl TRACE H Urine Ascorbic Acid 40 H Acetaminophen < 10 L Discharge - Discharge Clinical Impression: Eloped from emergency department, Polysubstance abuse Disposition: ELOPED
[2019-12-30 18:19] LABS: HEMATOCRIT 38.9 % (36.0-47.0); HEMOGLOBIN 12.8 g/dL (12.0-15.5); MEAN CORPUSCULAR HEMOGLOBIN 24.8 pg (27.0-33.4); MEAN CORPUSCULAR HGB CONC 32.9 g/dL (32.0-36.0); MEAN CORPUSCULAR VOLUME 75 fl (80-97); PLATELET COUNT 304 10^3/uL (150-450); RED BLOOD COUNT 5.18 10^6/uL (3.72-5.28); RED CELL DISTRIBUTION WIDTH 17.7 % (11.5-14.0); WHITE BLOOD COUNT 7.6 10^3/uL (4.0-10.5)
--- NOTE | 2019-12-30 18:27 | RADIOLOGY REPORT (SQ) ---
EXAM DESCRIPTION: CHEST SINGLE VIEW; SOFT TISSUE NECK IMAGES COMPLETED DATE/TIME: 12/30/2019 6:17 pm REASON FOR STUDY: dyspnea; metallic FB COMPARISON: None. FINDINGS: Two views soft tissue neck: No radiopaque foreign body. Soft tissues normal. Bones inta ct. Single-view chest: Bilateral nipple shadows over the lung bases. No nodules or masses or infiltrate s. Normal cardiomediastinal silhouette. No radiopaque foreign body within the chest. No pneumothor ax. TECHNICAL DOCUMENTATION: JOB ID: [id number] Reading location - IP/workstation name: [email or web address]
--- NOTE | 2019-12-30 18:27 | RADIOLOGY REPORT (SQ) ---
EXAM DESCRIPTION: CHEST SINGLE VIEW; SOFT TISSUE NECK IMAGES COMPLETED DATE/TIME: 12/30/2019 6:17 pm REASON FOR STUDY: dyspnea; metallic FB COMPARISON: None. FINDINGS: Two views soft tissue neck: No radiopaque foreign body. Soft tissues normal. Bones inta ct. Single-view chest: Bilateral nipple shadows over the lung bases. No nodules or masses or infiltrate s. Normal cardiomediastinal silhouette. No radiopaque foreign body within the chest. No pneumothor ax. TECHNICAL DOCUMENTATION: JOB ID: [id number] Reading location - IP/workstation name: [email or web address]
[2019-12-30 18:41] LABS: ACETAMINOPHEN < 10 ug/mL (10-30); ALBUMIN 4.6 g/dL (3.5-5.0); ALCOHOL < 10 mg/dL (NONE DETECTED); ALKALINE PHOSPHATASE 81 U/L (38-126); ANION GAP 7 (5-19); ASPARTATE AMINO TRANSFERASE 29 U/L (14-36); BILIRUBIN,DIRECT 0.1 mg/dL (0.0-0.4); BILIRUBIN,TOTAL 0.4 mg/dL (0.2-1.3); BLOOD UREA NITROGEN 16 mg/dL (7-20); CALCIUM 9.9 mg/dL (8.4-10.2); CARBON DIOXIDE 29 mmol/L (22-30); CHLORIDE 102 mmol/L (98-107); GLUCOSE 133 mg/dL (75-110); POTASSIUM 4.7 mmol/L (3.6-5.0); TOTAL PROTEIN 8.8 g/dL (6.3-8.2)
[2019-12-30 18:50] LABS: ABSOLUTE LYMPHOCYTES# (MANUAL) 2.7 10^3/uL (0.5-4.7); BASOPHILS % (MANUAL) 1 % (0-2); EOSINOPHILS % (MANUAL) 2 % (0-6); LYMPHOCYTES % (MANUAL) 36 % (13-45); MONOCYTES % (MANUAL) 0 % (3-13); SEGMENTED NEUTROPHILS % (MAN) 61 % (42-78); TOTAL CELLS COUNTED 100
[2019-12-30 18:51] LABS: ANISOCYTOSIS 1+; OVALOCYTES 1+; PLATELET COMMENT ADEQUATE
[2019-12-30 19:12] VITALS: BP 100/69
[2019-12-30] MEDS ORDERED: NORMAL SALINE 1000 ML 1,000 ML IV ONE (19:22)
--- NOTE | 2019-12-30 20:06 | EKG REPORT ---
SEVERITY:- NORMAL ECG - SINUS RHYTHM : Confirmed by: Jessy Vieira MD 30-Dec-2019 20:05:30
[2019-12-30 22:52] LABS: APPEARANCE,URINE SLIGHTLY-CLOUDY; BILIRUBIN,URINE NEGATIVE (NEGATIVE); COLOR,URINE YELLOW; GLUCOSE, URINE NEGATIVE (NEGATIVE); KETONES,URINE NEGATIVE (NEGATIVE); PROTEIN,URINE NEGATIVE (NEGATIVE); URINE SPECIFIC GRAVITY 1.027
[2019-12-30 23:06] LABS: URINE BARBITURATES SCREEN NEGATIVE; URINE BENZODIAZEPINES SCREEN NEGATIVE; URINE METHADONE SCREEN NEGATIVE; URINE PHENCYCLIDINE SCREEN NEGATIVE
[2019-12-30 23:14] LABS: URINE COCAINE SCREEN UNCONFIRMED POSITIVE; URINE MARIJUANA (THC) SCREEN UNCONFIRMED POSITIVE
== END 2019-12-31 | disposition left against medical advice (07) ==
LOC: ER 17:00
DX: F11.10 Opioid abuse, uncomplicated (principal); F17.200 Nicotine dependence, unspecified, uncomplicated; Z59.0 Homelessness; Z88.1 Allergy status to other antibiotic agents; Z87.892 Personal history of anaphylaxis; Z91.048 Other nonmedicinal substance allergy status; Z88.8 Allergy status to other drugs, medicaments and biological substances; Z91.010 Allergy to peanuts; Z53.20 Procedure and treatment not carried out because of patient's decision for unspecified reasons
CPT/HCPCS: 93005; 99281; 96360; 96361; 36415; 80307 ×3; 84703; 85025; 80053; 81001; 71045; 70360; 93010; J7030

== ENCOUNTER 2020-01-31 11:42 | Inpatient (IN) | payer SELFPAY ==
[2020-01-31] MEDS ORDERED: VANCOMYCIN HCL INJ 1000 MG VIAL IV ONE (12:49)
[2020-01-31] MEDS ORDERED: RINGERS SOLUTION,LACTATED 2,000 ML IV PRN (12:51)
[2020-01-31] MEDS ORDERED: ACETAMINOPHEN 325 MG TABLET PO ONE (13:13)
[2020-01-31] MEDS ORDERED: PIPERACILLIN/TAZOBACTAM 3.375 GM VIAL IV ONE (13:13)
[2020-01-31 13:20] LABS: ABSOLUTE BASOPHILS # (AUTO) 0.1 10^3/uL (0.0-0.2); ABSOLUTE LYMPHOCYTES (AUTO) 1.7 10^3/uL (0.5-4.7); ABSOLUTE MONOCYTES (AUTO) 1.4 10^3/uL (0.1-1.4); ABSOLUTE NEUT (AUTO) 11.2 10^3/uL (1.7-8.2); BASOPHILS % (AUTO) 0.6 % (0-2); HEMATOCRIT 37.4 % (36.0-47.0); HEMOGLOBIN 12.4 g/dL (12.0-15.5); LYMPHOCYTES % (AUTO) 11.6 % (13-45); MEAN CORPUSCULAR HEMOGLOBIN 24.8 pg (27.0-33.4); MEAN CORPUSCULAR HGB CONC 33.1 g/dL (32.0-36.0); MEAN CORPUSCULAR VOLUME 75 fl (80-97); MONOCYTES % (AUTO) 9.6 % (3-13); PLATELET COUNT 261 10^3/uL (150-450); RED BLOOD COUNT 4.99 10^6/uL (3.72-5.28); RED CELL DISTRIBUTION WIDTH 17.5 % (11.5-14.0); SEGMENTED NEUTROPHILS % (AUTO) 78.2 % (42-78); TOTAL CELLS COUNTED % (AUTO) 100 %; WHITE BLOOD COUNT 14.4 10^3/uL (4.0-10.5)
--- NOTE | 2020-01-31 13:22 | ER Document Report ---
ED General - General Chief Complaint: Neck Pain >24hrs old Stated Complaint: SORE THROAT/FEVER/COUGH Time Seen by Provider: 01/31/20 12:36 Notes: HPI: 29-year-old female who presents today stating a fever starting last night. She states some body aches, nausea and vomiting without diarrhea. She states a mild sore throat. She denies any chest pain, cough, or congestion. Patient is an admitted IV drug abuser and believes she also has a hypodermic needle dislodged in her neck. ROS: See HPI All other review of systems reviewed and otherwise negative Reviewed vital signs and nursing note as charted by RN. PHYSICAL EXAM: CONSTITUTIONAL: Alert and oriented and responds appropriately to questions. Well-appearing; well-nourished HEAD: Normocephalic; atraumatic EYES: PERRL; sclerae non-icteric ENT: Normal nose; no rhinorrhea; moist mucous membranes; pharynx without lesions noted NECK: Supple without meningismus; non-tender; no cervical lymphadenopathy, no masses CARD: Tachycardic and regular no murmurs; symmetric distal pulses RESP: Normal chest excursion without splinting or tachypnea; breath sounds clear and equal bilaterally; no wheezes, no rhonchi, no rales ABD/GI: Normal bowel sounds; non-distended; soft, non-tender; no palpable organomegaly or masses BACK: The back appears normal and is non-tender to palpation EXT: Normal ROM in all joints; non-tender to palpation; no edema SKIN: Patient has multiple needle gonzalez as well as a nonfluctuant slightly tender area of erythema to the right humerus; no palm or sole lesions. No intraoral lesions present NEURO: CN 2-12 intact; 5/5 bilateral upper and lower extremity strength with sensation intact to light touch PSYCH: The patient's mood and manner are appropriate. Grooming and personal hygiene are appropriate. TRAVEL OUTSIDE OF THE [place] 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 Denies: Hx Coronary Artery Disease, Hx Heart Attack, Hx Hypertension Pulmonary Medical History: Reports: Hx Pneumonia Denies: Hx Asthma, Hx COPD Neurological Medical History: Denies: Hx Seizures Endocrine Medical History: Denies: Hx Diabetes Mellitus Type 1, Hx Diabetes Mellitus Type 2 Renal/ Medical History: Denies: Hx Peritoneal Dialysis GI Medical History: Denies: Hx Cirrhosis, Hx Hepatitis Musculoskeletal Medical History: Denies Hx Arthritis, Denies Hx Fibromyalgia Skin Medical History: Denies Hx Eczema, Denies Hx Psoriasis Psychiatric Medical History: Reports: Hx Attention Deficit Hyperactivity Disorder Denies: Hx Depression Infectious Medical History: Denies: Hx Hepatitis Past Surgical History: Reports: Hx Adenoidectomy, Hx Appendectomy, Hx Oral Surgery - Moffat Teeth, Hx Tonsillectomy - Immunizations Immunizations up to date: Yes Hx Diphtheria, Pertussis, Tetanus Vaccination: Yes - given today Physical Exam - Vital signs Vitals: Temp Pulse Resp BP Pulse Ox 100.0 F 132 H 18 108/68 100 01/31/20 11:47 01/31/20 11:47 01/31/20 11:47 01/31/20 11:47 01/31/20 11:47 Course - Re-evaluation Re-evalutation: Given the above history and physical, I am concerned about the possibility of sepsis secondary to infection. Most likely right arm cellulitis. Given the patient's concern about a needle stuck in her neck I will also order a CT scan of the soft tissue of the neck with IV contrast. Abdomen is soft and nontender. Patient denies any dysuria or diarrhea. No obvious gillette spots or Janeway lesions. No cardiac murmurs. 01/31/20 15:30 Labs as recorded. Urine analysis is pending. Urine drug screen is pending. Blood pressure and heart rate as recorded. Biotics have been provided. 01/31/20 17:01 CT as recorded. X-ray as recorded. Vital signs have improved. Patient will be admitted to the hospital service for further evaluation and treatment. - Vital Signs Vital signs: Temp Pulse Resp BP Pulse Ox 98.7 F 93 12 100/61 100 01/31/20 16:21 08/30/20 16:21 01/31/20 16:21 01/31/20 16:21 01/31/20 16:21 - Laboratory Result Diagrams: 01/31/20 12:25 01/31/20 12:25 Laboratory results interpreted by me: 01/31/20 01/31/20 01/31/20 12:25 12:25 16:10 WBC 14.4 H MCV 75 L MCH 24.8 L RDW 17.5 H Lymph % (Auto) 11.6 L Absolute Neuts (auto) 11.2 H Seg Neutrophils % 78.2 H Sodium 131.7 L Chloride 95 L Glucose 138 H Total Protein 8.4 H Urine Protein 30 H Urine Ketones TRACE H Urine Blood SMALL H Ur Leukocyte Esterase LARGE H Critical Care Note - Critical Care Note Total time excluding time spent on procedures (mins): 45 Discharge - Discharge Clinical Impression: Right arm cellulitis, IV drug abuse, Leukocytes in urine Sepsis Qualifiers: Sepsis type: sepsis due to unspecified organism Sepsis acute organ dysfunction status: with acute organ dysfunction Severe sepsis acute organ dysfunction type: acute renal failure Acute renal failure type: unspecified Severe sepsis shock status: without septic shock Qualified Code(s): A41.9 - Sepsis, unspecified organism; R65.20 - Severe sepsis without septic shock; N17.9 - Acute kidney failure, unspecified Condition: Fair Disposition: ADMITTED INPATIENT Admitting Provider: Grady (Hospitalist) Unit Admitted: Medical Floor
[2020-01-31 13:23] LABS: ALBUMIN 4.3 g/dL (3.5-5.0); ALKALINE PHOSPHATASE 85 U/L (38-126); ANION GAP 11 (5-19); ASPARTATE AMINO TRANSFERASE 23 U/L (14-36); BILIRUBIN,DIRECT 0.4 mg/dL (0.0-0.4); BILIRUBIN,TOTAL 1.3 mg/dL (0.2-1.3); BLOOD UREA NITROGEN 17 mg/dL (7-20); CALCIUM 9.6 mg/dL (8.4-10.2); CARBON DIOXIDE 26 mmol/L (22-30); CHLORIDE 95 mmol/L (98-107); GLUCOSE 138 mg/dL (75-110); POTASSIUM 4.3 mmol/L (3.6-5.0); TOTAL PROTEIN 8.4 g/dL (6.3-8.2)
--- NOTE | 2020-01-31 14:50 | RADIOLOGY REPORT (SQ) ---
EXAM DESCRIPTION: CHEST SINGLE VIEW IMAGES COMPLETED DATE/TIME: 01/31/2020 2:28 pm REASON FOR STUDY: 37; fever COMPARISON: Chest radiograph 12/30/2019 NUMBER OF VIEWS: One view. TECHNIQUE: Single frontal radiographic view of the chest acquired. LIMITATIONS: None. FINDINGS: LUNGS AND PLEURA: No opacities, masses or pneumothorax. No pleural effusion. MEDIASTINUM AND HILAR STRUCTURES: No masses. Contour normal. HEART AND VASCULAR STRUCTURES: Heart normal in size. Normal vasculature. BONES: No acute findings. HARDWARE: None in the chest. OTHER: No other significant finding. IMPRESSION: NO SIGNIFICANT RADIOGRAPHIC FINDING IN THE CHEST. TECHNICAL DOCUMENTATION: JOB ID: [id number] 2010 [employer]- All Rights Reserved Reading location - IP/workstation name: [email or web address]
[2020-01-31] MEDS ORDERED: FENTANYL CITRATE INJ/PF 100 MCG/2 ML AMPUL IV ONE ×2 (15:22→18:04)
--- NOTE | 2020-01-31 16:17 | RADIOLOGY REPORT (SQ) ---
EXAM DESCRIPTION: CT SOFT TISSUE NECK WITHOUT IMAGES COMPLETED DATE/TIME: 01/31/2020 3:48 pm REASON FOR STUDY: 37; possible needle lodgement COMPARISON: CT neck 10/18/2018 TECHNIQUE: Noncontrast scanning from skull base through lung apices with review of bone, soft tissue and lung windows. Reconstructed coronal and sagittal MPR images reviewed. All images stored on PAC S. All CT scanners at this facility use dose modulation, iterative reconstruction, and/or weight based d osing when appropriate to reduce radiation dose to as low as reasonably achievable (ALARA). [facility]: Dose Right [facility]: CareDose [facility]: Dose Right [facility]: Teradose 4D [facility]: Timeet RADIATION DOSE: CT Rad equipment meets quality standard of care and radiation dose reduction techniq ues were employed. CTDIvol: 7.9 mGy. DLP: 239 mGy-cm. LIMITATIONS: None. FINDINGS: SKULL BASE: Intact. MAJOR SALIVARY GLANDS: No solid or cystic masses. No inflammatory changes. LYMPHADENOPATHY: No adenopathy. MUCOSAL MASSES OR ASYMMETRY: No mucosal masses or asymmetry. LARYNX/CORDS: No abnormal findings. LUNG APICES: There are 2 5 mm solid noncalcified nodules in the posterior segment right upper lobe (a xial image 96). There is also subtle ground-glass opacity in the posterior aspect of the superior se gment left lower lobe (axial image 103). BONES: Intact. THYROID: Normal size. No masses. PARANASAL SINUSES: Clear. OTHER: No other significant finding. IMPRESSION: No radiopaque foreign body in the neck. Nonspecific 5 mm solid noncalcified nodules in the right upper lobe and subtle ground-glass opacity i n the superior segment left lower lobe. These may represent infectious or inflammatory etiology. Re commend short interval (3 to 6 month) follow up CT for further evaluation. TECHNICAL DOCUMENTATION: JOB ID: [id number] Quality ID # [id number]: Final reports with documentation of one or more dose reduction techniques (e.g., Au tomated exposure control, adjustment of the mA and/or kV according to patient size, use of iterative reconstruction technique) 2010 [employer]- All Rights Reserved Reading location - IP/workstation name: [email or web address]
[2020-01-31 16:40] LABS: AMORPHOUS SEDIMENT,URINE TRACE /HPF; APPEARANCE,URINE TURBID; BILIRUBIN,URINE NEGATIVE (NEGATIVE); COLOR,URINE AMBER; GLUCOSE, URINE NEGATIVE (NEGATIVE); KETONES,URINE TRACE mg/dL (NEGATIVE); LEUKOCYTE ESTERASE,URINE LARGE (NEGATIVE); NITRITE,URINE NEGATIVE (NEGATIVE); PROTEIN,URINE 30 mg/dL (NEGATIVE); URINE SPECIFIC GRAVITY 1.013; UROBILINOGEN,URINE NEGATIVE mg/dL (<2.0)
[2020-01-31 16:55] LABS: URINE BARBITURATES SCREEN NEGATIVE; URINE BENZODIAZEPINES SCREEN NEGATIVE; URINE COCAINE SCREEN NEGATIVE; URINE MARIJUANA (THC) SCREEN NEGATIVE; URINE METHADONE SCREEN NEGATIVE; URINE PHENCYCLIDINE SCREEN NEGATIVE
--- NOTE | 2020-01-31 18:03 | PDOC H&P ---
History of Present Illness Patient complains of: Right arm is red and swollen. History of Present Illness: EMMA BRUSH is a 29 year old female with a history of IV drug use. She states that she last injected herself 2 weeks ago. She was worried about a piece of hypodermic needle stuck in her neck but a CT scan did not reveal any foreign bodies. She states that approximately 2 weeks ago her right arm began to get re d. It then became painful and started to swell. It is from the elbow proximally and seems to stop at the shoulder. No red streaks noted going up her neck. It is exquisitely tender. There is a scab in the antecubital fossa possibly from an injection. Temperature on admission was 100 degrees. Systolic blood pressure was just over 100. She is borderline tachycardic. The patient was swabbed for Covid-19. She will be admitted to [facility] until her results are back. Unfortunately indicators such as C-reactive protein, d-dimer, ferritin and LDH were not ordered. 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 Denies: Coronary Artery Disease, Myocardial Infarction, Hypertension Pulmonary Medical History: Reports: Pneumonia Denies: Asthma, Chronic Obstructive Pulmonary Disease (COPD) Neurological Medical History: Denies: Seizures Endocrine Medical History: Denies: Diabetes Mellitus Type 1, Diabetes Mellitus Type 2 GI Medical History: Denies: Cirrhosis, Hepatitis Musculoskeltal Medical History: Denies: Arthritis, Fibromyalgia Skin Medical History: Denies: Eczema, Psoriasis Psychiatric Medical History: Reports: Attention Deficit Hyperactivity Disorder Denies: Depression Hematology: Denies: Anemia, Bleeding Tendencies Past Surgical History Past Surgical History: Reports: Adenoidectomy, Appendectomy, Tonsillectomy Social History Information Source: Patient Occupation: Patient is with 2 children Lives with: Alone Smoking Status: Current Every Day Smoker Cigarettes Packs Per Day: 1 Electronic Cigarette use?: No Frequency of Alcohol Use: Occasional Hx Recreational Drug Use: Yes Drugs: Cocaine, Heroin, Marijuana Hx Prescription Drug Abuse: No - Advance Directive Resuscitation Status: Full Code Family History Family History: Hypertension, Other - Heart problems Parental Family History Reviewed: Yes Children Family History Reviewed: Yes Sibling(s) Family History Reviewed.: Yes Medication/Allergy Home Medications: No Home Medications 10/09/19 Allergies/Adverse Reactions: cefaclor [From [facility]] Allergy (Verified 02/10/18 11:41) naloxone Allergy (Verified 02/10/18 11:41) peanut Allergy (Verified 02/10/18 11:41) red dye [Red Dye] Allergy (Verified 02/10/18 11:41) Review of Systems All systems: reviewed and no additional remarkable complaints except as stated Constitutional: PRESENT: chills, fever(s), headache(s) Gastrointestinal: PRESENT: nausea, vomiting Musculoskeletal: PRESENT: other - Left upper arm swollen and extremely tender to palpation. Confluent erythema. Integumentary: PRESENT: erythema - Marked erythema right upper arm. Small scabbed area in the antecubital fossa possibly from injection. Physical Exam Vital Signs: Temp Pulse Resp BP Pulse Ox 98.7 F 93 12 100/61 100 01/31/20 16:21 01/31/20 16:21 01/31/20 16:21 01/31/20 16:21 01/31/20 16:21 Intake & Output 01/30/20 01/31/20 02/01/20 06:59 06:59 06:59 Intake Total 1999 Balance 1999 Weight 54.431 kg General appearance: PRESENT: cooperative, severe distress - Moderate to severe distress, well-developed, well-nourished Head exam: PRESENT: atraumatic, normocephalic Eye exam: PRESENT: conjunctiva pink, EOMI. ABSENT: scleral icterus Ear exam: PRESENT: normal external ear exam. ABSENT: bleeding, drainage Mouth exam: PRESENT: dry mucosa, tongue midline Neck exam: ABSENT: carotid bruit, JVD, lymphadenopathy, tenderness, tracheostomy Respiratory exam: PRESENT: clear to auscultation soo, symmetrical, unlabored. ABSENT: crackles, rales, rhonchi, tachypnea, wheezes Cardiovascular exam: PRESENT: RRR, +S1, +S2, tachycardia - Borderline tachycardi a. ABSENT: bradycardia, diastolic murmur, irregular rhythm, systolic murmur Pulses: PRESENT: normal radial pulses, +1 pedal pulses bilateral GI/Abdominal exam: PRESENT: normal bowel sounds, soft. ABSENT: distended, guarding, tenderness Rectal exam: PRESENT: deferred Gentrourinary exam: ABSENT: indwelling catheter Extremities exam: PRESENT: tenderness - Right upper arm elbow through the shoulder with swelling Musculoskeletal exam: PRESENT: ambulatory, tenderness - Right upper arm. ABSENT: deformity, dislocation Neurological exam: PRESENT: alert, awake, oriented to person, oriented to place, oriented to time, oriented to situation, CN II-XII grossly intact. ABSENT: altered, motor sensory deficit Psychiatric exam: PRESENT: appropriate affect - Affect reflects her discomfort. ABSENT: agitated, anxious Focused psych exam: ABSENT: delusional, paranoid, restlessness Skin exam: PRESENT: erythema, other - Small scab in antecubital fossa. ABSENT: rash, vesicles Results Laboratory Results: 01/31/20 12:25 01/31/20 12:25 01/31/20 01/31/20 01/31/20 12:25 12:25 14:30 WBC 14.4 H RBC 4.99 Hgb 12.4 Hct 37.4 MCV 75 L MCH 24.8 L MCHC 33.1 RDW 17.5 H Plt Count 261 Seg Neutrophils % 78.2 H Sodium 131.7 L Potassium 4.3 Chloride 95 L Carbon Dioxide 26 Anion Gap 11 BUN 17 Creatinine 0.73 Est GFR ( Amer) > 60 Glucose 138 H Lactic Acid 1.2 Calcium 9.6 Total Bilirubin 1.3 AST 23 Alkaline Phosphatase 85 Total Protein 8.4 H Albumin 4.3 Urine Color Urine Appearance Urine pH Ur Specific Eldred Urine Protein Urine Glucose (UA) Urine Ketones Urine Blood Urine Nitrite Ur Leukocyte Esterase Urine WBC (Auto) Urine RBC (Auto) 01/31/20 16:10 WBC RBC Hgb Hct MCV MCH MCHC RDW Plt Count Seg Neutrophils % Sodium Potassium Chloride Carbon Dioxide Anion Gap BUN Creatinine Est GFR ( Amer) Glucose Lactic Acid Calcium Total Bilirubin AST Alkaline Phosphatase Total Protein Albumin Urine Color SHADIA Urine Appearance TURBID Urine pH 5.0 Ur Specific Eldred 1.013 Urine Protein 30 H Urine Glucose (UA) NEGATIVE Urine Ketones TRACE H Urine Blood SMALL H Urine Nitrite NEGATIVE Ur Leukocyte Esterase LARGE H Urine WBC (Auto) 81 Urine RBC (Auto) 66 Impressions: Chest X-Ray 01/31/20 13:13 IMPRESSION: NO SIGNIFICANT RADIOGRAPHIC FINDING IN THE CHEST. Soft Tissue Neck CT 01/31/20 13:17 IMPRESSION: No radiopaque foreign body in the neck. Nonspecific 5 mm solid noncalcified nodules in the right upper lobe and subtle ground-glass opacity in the superior segment left lower lobe. These may represent infectious or inflammatory etiology. Recommend short interval (3 to 6 month) follow up CT for further evaluation. Assessment and Plan - Diagnosis (1) Right arm cellulitis Is this a current diagnosis for this admission?: Yes Plan: The patient will be started on vancomycin and Zosyn. 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 She continues to inject drugs. It is most likely that she will have a staph infection again and high probability of methicillin- resistant staph aureus. Hx of endocarditis. Consider JUDI. (2) Urinary tract infection Qualifiers: Urinary tract infection type: acute cystitis Hematuria presence: without hematuria Qualified Code(s): N30.00 - Acute cystitis without hematuria Is this a current diagnosis for this admission?: Yes Plan: Markedly positive UA. Started on Abx for cellulitis and these will adequately cover the UTI. Culture pending (3) Hyponatremia Is this a current diagnosis for this admission?: Yes Plan: Mild. Should correct with IV saline and normal diet. Repeat BMP in AM (4) Hyperglycemia Is this a current diagnosis for this admission?: Yes Plan: No Hx of diabetes. Likely from physiologic stress. Repeat BMP and if elevated start accuchecks and sliding scale (5) IV drug abuse Is this a current diagnosis for this admission?: Yes Plan: continued abuse despite Hx endocarditis with MRSA and hep C. Try to encourage abstinence. (6) Leukocytosis Qualifiers: Leukocytosis type: unspecified Qualified Code(s): D72.829 - Elevated white blood cell count, unspecified Is this a current diagnosis for this admission?: Yes Plan: from infection. Monitor CBC. Should normalize with Abx. (7) Hepatitis C Qualifiers: Viral hepatitis chronicity: chronic Hepatic coma status: without hepatic coma Qualified Code(s): B18.2 - Chronic viral hepatitis C Is this a current diagnosis for this admission?: Yes Plan: Monitor patient. Supportive care (8) Person under investigation for COVID-19 Is this a current diagnosis for this admission?: Yes Plan: results pending. If neg consider JUDI for possible endocarditis - Time Time Spent with patient: 35 or more minutes Medications reviewed and adjusted accordingly: Yes Anticipated Discharge Disposition: Home, Self Care Anticipated Discharge Timeframe: may need 6 weeks Abx - Inpatient Certification Based on my medical assessment, after consideration of the patient's comorbidities, presenting symptoms, or acuity I expect that the services needed warrant INPATIENT care.: Yes I certify that my determination is in accordance with my understanding of Medicare's requirements for reasonable and necessary INPATIENT services [42 CFR 412.3e].: Yes Medical Necessity: Need For IV Fluids, Need for Pain Control, Need for IV Antibiotics Post Hospital Care: D/C or Transfer Summary
[2020-01-31] MEDS ORDERED: ACETAMINOPHEN 325 MG TABLET PO PRN (18:07)
[2020-01-31] MEDS ORDERED: ONDANSETRON HCL INJ/PF 4 MG/2 ML SDV IV PRN (18:07)
[2020-01-31] MEDS ORDERED: VANCOMYCIN HCL 0 MG in DEXTROSE 5%-WATER 250 ML IV NR (18:30)
[2020-01-31] MEDS: RINGERS SOLUTION,LACTATED 1,000 ML IV PRN ×2 (20:39→23:43)
[2020-01-31] MEDS: MORPHINE SULFATE 10 MG/ML INJ IV PRN (20:53)
[2020-01-31] MEDS: FAMOTIDINE 20 MG TABLET PO SCH (22:24)
[2020-01-31] MEDS: HEPARIN SOD (PORCINE) 5,000 UNIT/ML 1 ML VIAL SUBCUT SCH (22:25)
[2020-02-01] MEDS ORDERED: PIPERACILLIN/TAZOBACTAM 3.375 GM VIAL IV ONE ×2 (00:04→00:12)
[2020-02-01 00:11] VITALS: BP 113/65
[2020-02-01] MEDS: PIPERACILLIN SODIUM/TAZOBACTAM 3.375 GM in NORMAL SALINE 100 ML IV SCH ×4 (00:41→18:26)
[2020-02-01] MEDS: MORPHINE SULFATE 10 MG/ML INJ IV PRN ×5 (00:45→17:37)
[2020-02-01] MEDS: HEPARIN SOD (PORCINE) 5,000 UNIT/ML 1 ML VIAL SUBCUT SCH ×2 (05:53→13:39)
[2020-02-01] MEDS: FAMOTIDINE 20 MG TABLET PO SCH (09:27)
[2020-02-01 10:31] LABS: ABSOLUTE LYMPHOCYTES (AUTO) 1.1 10^3/uL (0.5-4.7); ABSOLUTE MONOCYTES (AUTO) 0.8 10^3/uL (0.1-1.4); ABSOLUTE NEUT (AUTO) 6.5 10^3/uL (1.7-8.2); BASOPHILS % (AUTO) 0.5 % (0-2); EOSINOPHILS % (AUTO) 0.3 % (0-6); HEMATOCRIT 31.8 % (36.0-47.0); HEMOGLOBIN 10.6 g/dL (12.0-15.5); LYMPHOCYTES % (AUTO) 12.8 % (13-45); MEAN CORPUSCULAR HEMOGLOBIN 24.9 pg (27.0-33.4); MEAN CORPUSCULAR HGB CONC 33.4 g/dL (32.0-36.0); MEAN CORPUSCULAR VOLUME 75 fl (80-97); MONOCYTES % (AUTO) 9.3 % (3-13); PLATELET COUNT 240 10^3/uL (150-450); RED BLOOD COUNT 4.25 10^6/uL (3.72-5.28); RED CELL DISTRIBUTION WIDTH 17.6 % (11.5-14.0); SEGMENTED NEUTROPHILS % (AUTO) 77.1 % (42-78); TOTAL CELLS COUNTED % (AUTO) 100 %; WHITE BLOOD COUNT 8.5 10^3/uL (4.0-10.5)
[2020-02-01 10:58] LABS: ANION GAP 9 (5-19); BLOOD UREA NITROGEN 15 mg/dL (7-20); CALCIUM 8.6 mg/dL (8.4-10.2); CARBON DIOXIDE 24 mmol/L (22-30); CHLORIDE 105 mmol/L (98-107); GLUCOSE 119 mg/dL (75-110); POTASSIUM 4.1 mmol/L (3.6-5.0)
--- NOTE | 2020-02-01 12:26 | EKG REPORT ---
SEVERITY:- ABNORMAL ECG - SINUS TACHYCARDIA LA ABNORMALITY RIGHT ATRIAL ABNORMALITY BORDERLINE RIGHT AXIS DEVIATION : Confirmed by: Jw Wilson MD 01-Feb-2020 12:26:06
[2020-02-01] MEDS ORDERED: VANCOMYCIN HCL 750 MG in DEXTROSE 5%-WATER 250 ML IV SCH (14:00)
--- NOTE | 2020-02-01 14:19 | PDOC PROGRESS REPORT ---
Subjective Subjective:: Patient admitted for high fevers, leukocytosis, found to have group A strep bacteremia and leukocytosis. Patient admits to IV drug abuse with heroin with ongoing abuse. COVID test was done in ED which is pending. 02/01/2020 Patient still having fevers of almost 103. WBC still elevated, patient frequently requesting more narcotics despite getting large and frequent doses of morphine. I discussed with the patient we will not be able to control her narcotics withdrawal given she was taking massive doses of heroin prior to admission and this is not something we will be able to compete with to achieve complete lack of discomfort during her withdrawal. Echocardiogram ordered by me today. She may need a follow-up JUDI assuming her COVID-19 test is negative. Continued on Zosyn. UDS positive for narcotics. Reason For Visit: CELLULITIS RIGHT ARM LIKELY SECONDARY TO IV DRUG Physical Exam Vital Signs: Temp Pulse Resp BP Pulse Ox 98.8 F 75 24 H 113/65 96 02/01/20 10:00 02/01/20 07:00 01/31/20 23:32 01/31/20 23:32 01/31/20 23:32 Intake & Output 01/31/20 02/01/20 02/02/20 06:59 06:59 06:59 Intake Total 3292 100 Balance 3292 100 Weight 53.9 kg 53.9 kg General appearance: PRESENT: no acute distress, well-developed, well-nourished Head exam: PRESENT: atraumatic, normocephalic Eye exam: PRESENT: conjunctiva pink Mouth exam: PRESENT: moist Respiratory exam: PRESENT: clear to auscultation soo. ABSENT: rales, rhonchi, wheezes Cardiovascular exam: PRESENT: RRR. ABSENT: diastolic murmur, rubs, systolic murmur GI/Abdominal exam: PRESENT: normal bowel sounds, soft. ABSENT: distended, guarding, mass, organolmegaly, rebound, tenderness Neurological exam: PRESENT: alert, awake, oriented to person, oriented to place, oriented to time, oriented to situation Psychiatric exam: PRESENT: appropriate affect, normal mood Skin exam: PRESENT: dry, intact, warm Results Laboratory Results: 02/01/20 10:13 02/01/20 06:00 01/31/20 01/31/20 02/01/20 14:30 16:10 06:00 WBC RBC Hgb Hct MCV MCH MCHC RDW Plt Count Seg Neutrophils % Sodium 137.6 Potassium 4.1 Chloride 105 Carbon Dioxide 24 Anion Gap 9 BUN 15 Creatinine 0.71 Est GFR ( Amer) > 60 Glucose 119 H Lactic Acid 1.2 Calcium 8.6 Magnesium 2.3 Urine Color SHADIA Urine Appearance TURBID Urine pH 5.0 Ur Specific [place] 1.013 Urine Protein 30 H Urine Glucose (UA) NEGATIVE Urine Ketones TRACE H Urine Blood SMALL H Urine Nitrite NEGATIVE Ur Leukocyte Esterase LARGE H Urine WBC (Auto) 81 Urine RBC (Auto) 66 02/01/20 10:13 WBC 8.5 RBC 4.25 Hgb 10.6 L Hct 31.8 L MCV 75 L MCH 24.9 L MCHC 33.4 RDW 17.6 H Plt Count 240 Seg Neutrophils % 77.1 Sodium Potassium Chloride Carbon Dioxide Anion Gap BUN Creatinine Est GFR ( Amer) Glucose Lactic Acid Calcium Magnesium Urine Color Urine Appearance Urine pH Ur Specific [place] Urine Protein Urine Glucose (UA) Urine Ketones Urine Blood Urine Nitrite Ur Leukocyte Esterase Urine WBC (Auto) Urine RBC (Auto) 01/31/20 12:25 Blood Blood Culture (PCR) - Final Strep Pyogenes (Grp A) 01/31/20 14:30 Blood Blood Culture (PCR) - Final Strep Pyogenes (Grp A) Impressions: Chest X-Ray 01/31/20 13:13 IMPRESSION: NO SIGNIFICANT RADIOGRAPHIC FINDING IN THE CHEST. Soft Tissue Neck CT 01/31/20 13:17 IMPRESSION: No radiopaque foreign body in the neck. Nonspecific 5 mm solid noncalcified nodules in the right upper lobe and subtle ground-glass opacity in the superior segment left lower lobe. These may represent infectious or inflammatory etiology. Recommend short interval (3 to 6 month) follow up CT for further evaluation. Assessment and Plan - Diagnosis (1) Bacterial infection due to streptococcus, group A Is this a current diagnosis for this admission?: Yes Plan: Blood culture 2/2+ for group A strep Started on empiric broad-spectrum antibiotics since admission Repeat blood cultures TTE JUDI to follow if TTE is negative and COVID test is negative (2) Person under investigation for COVID-19 Is this a current diagnosis for this admission?: Yes Plan: Results pending, unlikely COVID-19, more likely bacterial endocarditis due to IV drug abuse (3) Right arm cellulitis Is this a current diagnosis for this admission?: Yes Plan: Vancomycin and Zosyn Had MRSA bacteremia with long-term antibiotics in July of this year, continues to inject drugs Hx of endocarditis TTE, JUDI (4) Sepsis Qualifiers: Sepsis type: sepsis due to unspecified organism Sepsis acute organ dysfunction status: with acute organ dysfunction Severe sepsis acute organ dysfunction type: acute renal failure Acute renal failure type: unspecified Severe sepsis shock status: without septic shock Qualified Code(s): A41.9 - Sepsis, unspecified organism; R65.20 - Severe sepsis without septic shock; N17.9 - Acute kidney failure, unspecified Is this a current diagnosis for this admission?: Yes (5) Polysubstance abuse Is this a current diagnosis for this admission?: Yes - Time Time Spent with patient: 35 or more minutes Medications reviewed and adjusted accordingly: Yes Anticipated Discharge Disposition: Home, Self Care Anticipated Discharge Timeframe: within 72 hours - Inpatient Certification Based on my medical assessment, after consideration of the patient's comorbidities, presenting symptoms, or acuity I expect that the services needed warrant INPATIENT care.: Yes I certify that my determination is in accordance with my understanding of Medicare's requirements for reasonable and necessary INPATIENT services [42 CFR 412.3e].: Yes Medical Necessity: Significant Comorbidiites Make Outpatient Treatment Too Risky, Need Close Monitoring Due to Risk of Patient Decompensation, Need for Pain Control, Need for IV Antibiotics, Risk of Complication if Not Cared For in Hospital, Risk of Diagnosis Which Will Require Inpatient Eval/Care/Monitoring
--- NOTE | 2020-02-01 20:41 | XCELERA REPORT ---
[address] [address] Transthoracic Echocardiogram Report Name: EMMA BRUSH Age: 29 yrs Gender: Female : 1990 Patient Status: Inpatient Patient Location: [address] [place], [place] [address] Study Date: 02/01/2020 03:32 PM Height: 60 in Weight: 118 lb BSA: 1.5 m2 Procedure: A two-dimensional transthoracic echocardiogram with color flow and Doppler was performed. The study was technically difficult with many images being suboptimal in quality. Reason For Study: ENDOCARDITIS / IVDA History: ENDOCARDITIS / IVDA. Ordering Physician: AUSTIN GAMEZ Performed By: NF Interpretation Summary No defenite endocsrditis.Recommend JUDI if clinicsl suspicion is high. The left ventricle is normal in size. There is normal left ventricular wall thickness. LV EF is 65% Left ventricular systolic function is normal. Doppler measurements suggest normal left ventricular diastolic function The left ventricular wall motion is normal. There is no thrombus. No ASD,VSD, or PFO seen. The right ventricle is normal in size and function. The right atrium is normal. The left atrial size is normal. There is no evidence of mitral valve prolapse. There is no vegetation seen on the mitral valve. There is no mitral valve stenosis. There is a trace amount of mitral regurgitation There is no aortic valvular vegetation. There is no aortic valve stenosis There is no LVOT obstruction. No aortic regurgitation is present. There is no tricuspid stenosis. There is a trace amount of tricuspid regurgitation Tricuspid regurgitation jet envelope not well defined to measure RV systolic pressure accurately. There is no pulmonic valvular stenosis. There is no pulmonic valvular regurgitation. The aortic root is normal size. The inferior vena cava appeared dilated and decreased < 50% with respiration (RAP 15-20 mmHg) There is no pericardial effusion. No defenite endocsrditis.Recommend JUDI if clinicsl suspicion is high. MMode/2D Measurements & Calculations RVDd: 3.1 cm LVIDd: 4.3 cm FS: 35.5 % Ao root diam: 2.3 cm IVSd: 0.81 cm LVIDs: 2.8 cm EDV(Teich): 83.5 ml Ao root area: 4.1 cm2 LVPWd: 0.76 cm ESV(Teich): 29.0 ml LA dimension: 3.1 cm EF(Teich): 65.2 % Doppler Measurements & Calculations MV E max haile: MV P1/2t max haile: Ao V2 max: LV V1 max P.1 cm/sec 88.4 cm/sec 98.2 cm/sec 3.4 mmHg MV A max haile: MV P1/2t: 60.7 msec Ao max PG: LV V1 max: 54.8 cm/sec MVA(P1/2t): 3.6 cm2 3.9 mmHg 92.5 cm/sec MV E/A: 1.1 MV dec slope: 426.5 cm/sec2 MV dec time: 0.24 sec PA V2 max: MV P1/2t-pr_phl: 71.1 cm/sec 60.7 msec PA max P.0 mmHg Left Ventricle The left ventricle is normal in size. There is normal left ventricular wall thickness. LV EF is 65%. Left ventricular systolic function is normal. Doppler measurements suggest normal left ventricular diastolic function. The left ventricular wall motion is normal. There is no thrombus. No ASD,VSD, or PFO seen. Right Ventricle The right ventricle is normal in size and function. Atria The right atrium is normal. The left atrial size is normal. Mitral Valve There is no evidence of mitral valve prolapse. There is no vegetation seen on the mitral valve. There is no mitral valve stenosis. There is a trace amount of mitral regurgitation. Aortic Valve There is no aortic valvular vegetation. There is no aortic valve stenosis. There is no LVOT obstruction. No aortic regurgitation is present. Tricuspid Valve There is no tricuspid stenosis. There is a trace amount of tricuspid regurgitation. Tricuspid regurgitation jet envelope not well defined to measure RV systolic pressure accurately. Pulmonic Valve There is no pulmonic valvular stenosis. There is no pulmonic valvular regurgitation. Great Vessels The aortic root is normal size. The inferior vena cava appeared dilated and decreased < 50% with respiration (RAP 15-20 mmHg). Effusions There is no pericardial effusion. : AUSTIN GAMEZ Lakshmi
--- NOTE | 2020-02-06 20:47 | Left Against Medical Advice ---
Against Medical Advice Admission Date/Time: 01/31/20 20:54 Primary Care Provider: Date of Patient Emigration: 02/02/20 - Diagnosis: (1) Right arm cellulitis Is this a current diagnosis for this admission?: Yes (2) Urinary tract infection Is this a current diagnosis for this admission?: Yes (3) Hyponatremia Is this a current diagnosis for this admission?: Yes (4) Hyperglycemia Is this a current diagnosis for this admission?: Yes (5) IV drug abuse Is this a current diagnosis for this admission?: Yes (6) Leukocytosis Is this a current diagnosis for this admission?: Yes (7) Hepatitis C Is this a current diagnosis for this admission?: Yes (8) Person under investigation for COVID-19 Is this a current diagnosis for this admission?: Yes - Summary: Summary: Please see Admission and Progress Notes as well. EMMA BRUSH is a 29 F, who LEFT AGAINST MEDICAL ADVICE. The Patient was admitted on 01/31/20 20:54. Patient left AGAINST MEDICAL ADVICE from Dr. Covington's service. Patient was admitted with group A strep and cellulitis. History of polysubstance abuse.
== END 2020-02-01 18:37 | disposition left against medical advice (07) | DRG 603 ==
LOC: ER 11:42 → EH 20:54 → 3N 23:00
PROVIDERS: ADMIT Hospitalist; ATTEND Internal Medicine
DX: L03.113 Cellulitis of right upper limb (principal); R78.81 Bacteremia; N30.00 Acute cystitis without hematuria; E87.1 Hypo-osmolality and hyponatremia; B95.0 Streptococcus, group A, as the cause of diseases classified elsewhere; F90.9 Attention-deficit hyperactivity disorder, unspecified type; Z90.49 Acquired absence of other specified parts of digestive tract; F17.210 Nicotine dependence, cigarettes, uncomplicated; I50.9 Heart failure, unspecified; Z82.49 Family history of ischemic heart disease and other diseases of the circulatory system; Z88.8 Allergy status to other drugs, medicaments and biological substances; Z91.010 Allergy to peanuts; Z91.048 Other nonmedicinal substance allergy status; R73.9 Hyperglycemia, unspecified; B18.2 Chronic viral hepatitis C; D72.829 Elevated white blood cell count, unspecified; Z86.79 Personal history of other diseases of the circulatory system; F11.10 Opioid abuse, uncomplicated; Z20.828 Contact with and (suspected) exposure to other viral communicable diseases
CPT/HCPCS: 36415; 70490; 71045; 80048; 80053; 80307; 81001; 81025; 82962; 83605; 83735; 85025; 87040; 87070; 87077; 87086; 87150; 87186; 87635; 87880; 93005; 93010; 93306; 96365; 96366; 96367; 96375; 99285; C9803; J2270; J2405; J2543; J3010; J3370; J3490; J7050; J7060; J7120